=== PATIENT | female | born 1955 | race Caucasian/White ===

== ENCOUNTER 2016-12-10 17:25 | Emergency (ER) | payer MEDICARE, BC ==
[2016-12-10 17:33] VITALS: TEMP 97.5
[2016-12-10] MEDS ORDERED: methylPREDNISolone SOD SUCCI 125 MG/2 ML VIAL IV STA (17:44)
[2016-12-10] MEDS ORDERED: FAMOTIDINE 20 MG/2 ML VIAL IV STA (17:44)
--- NOTE | 2016-12-10 17:46 | ED ---
General Adult HPI - General Chief complaint: Allergic Reaction Stated complaint: bee sting Time Seen by Provider: 12/10/16 17:30 Source: EMS, RN notes reviewed Mode of arrival: EMS Limitations: no limitations - History of Present Illness Initial comments: This is a 61-year-old female who presents emergency department after she was bit twice on the left arm by a wasp. Patient states she started breaking out in a rash on her chest arms and legs and became very itchy. Patient states then she started to have a sensation that she wasn't breathing as well. EMS was contacted became irregular 50 of Benadryl patient refused epinephrine because she believes she is ALLERGIC to it. Patient states she has not had any ALLERGIC reactions to wasps in the past. Patient states currently she is not having any difficulty breathing or throat swelling or any difficulty swallowing. Patient states since the Benadryl she is feeling better. - Related Data Home Medications Medication Instructions Recorded Confirmed Atenolol [Tenormin] 12.5 mg PO DAILY 12/10/16 12/10/16 Benazepril/Hydrochlorothiazide 1 tab PO DAILY 12/10/16 12/10/16 [Benazepril-Hctz 20-12.5 mg Tab] Etanercept [Enbrel] 50 mg SQ WANG 12/10/16 12/10/16 Gemfibrozil [Lopid] 600 mg PO AC-BID 12/10/16 12/10/16 Ibuprofen [Motrin] 800 mg PO TID 12/10/16 12/10/16 Methotrexate 50mg/2ml 25 mg SQ WE 12/10/16 12/10/16 [place]-3 Fatty Acids/Fish Oil [Fish 1 cap PO DAILY 12/10/16 12/10/16 Oil 1,000 mg Softgel] Omeprazole 40 mg PO DAILY 12/10/16 12/10/16 amLODIPine [Norvasc] 5 mg PO DAILY 12/10/16 12/10/16 glipiZIDE [Glucotrol] 10 mg PO DAILY 12/10/16 12/10/16 glyBURIDE [Diabeta] 5 mg PO DAILY 12/10/16 12/10/16 metFORMIN HCL [Glucophage] 1,000 mg PO BID 12/10/16 12/10/16 oxyCODONE ER [OxyCONTIN 80MG E.R] 80 mg PO TID 12/10/16 12/10/16 Previous Rx's Medication Instructions Recorded EPINEPHrine (Auto Inject) [Epipen] 0.3 mg IM ONCE PRN #2 syringe 12/10/16 predniSONE 40 mg PO DAILY #8 tab 12/10/16 Allergies Allergy/AdvReac Type Severity Reaction Status Date / Time bee venom protein (honey bee) Allergy Rash/Hives Verified 12/10/16 18:12 Sulfa (Sulfonamide Allergy Unknown Verified 12/10/16 18:12 Antibiotics) Review of Systems ROS Statement: Those systems with pertinent positive or pertinent negative responses have been documented in the HPI. ROS Other: All systems not noted in ROS Statement are negative. Past Medical History Past Medical History: Diabetes Mellitus, Hypertension, Rheumatoid Arthritis (RA) History of Any Multi-Drug Resistant Organisms: None Reported Past Surgical History: Breast Surgery Past Psychological History: No Psychological Hx Reported Smoking Status: Former smoker Past Alcohol Use History: None Reported Past Drug Use History: None Reported General Exam - General Exam Comments Initial Comments: GENERAL: Patient is well-developed and well-nourished. Patient is nontoxic and well- hydrated and is in mild distress. ENT: Neck is soft and supple. No significant lymphadenopathy is noted. Oropharynx is clear. Moist mucous membranes. Neck has full range of motion without eliciting any pain. EYES: The sclera were anicteric and conjunctiva were pink and moist. Extraocular movements were intact and pupils were equal round and reactive to light. Eyelids were unremarkable. PULMONARY: Unlabored respirations. Good breath sounds bilaterally. No audible rales rhonchi or wheezing was noted. CARDIOVASCULAR: There is a regular rate and rhythm without any murmurs gallops or rubs. ABDOMEN: Soft and nontender with normal bowel sounds. SKIN: Patient has hives on both of her legs arms and chest. NEUROLOGIC: Patient is alert and oriented x3. Cranial nerves II through XII are grossly intact. Motor and sensory are also intact. Normal speech, volume and content. Symmetrical smile. MUSCULOSKELETAL: Normal extremities with adequate strength and full range of motion. No lower extremity swelling or edema. No calf tenderness. PSYCHIATRIC: Normal psychiatric evaluation. Normal interpersonal interactions appears functionally intact in deals appropriately with others. No signs of depression. No signs of anxiety. Limitations: no limitations Course Vital Signs 12/10/16 12/10/16 12/10/16 17:30 19:21 19:37 Temperature 97.5 F L Pulse Rate 115 H 88 110 H Respiratory 18 16 16 Rate Blood Pressure 124/63 100/56 105/70 O2 Sat by Pulse 100 100 100 Oximetry Medical Decision Making - Medical Decision Making I gave the patient Solu-Medrol as well as Pepcid short he had Benadryl in route to the hospital. Patient's rash was almost completely gone patient had no difficulty breathing or difficulty swallowing when I reevaluated her. - Lab Data Lab Results 12/10/16 Range/Units 18:55 POC Glucose (mg/dL) 265 H (75-99) mg/dL POC Glu Benefits Advisor ID Shanthi Jones Disposition Clinical Impression: Allergic reaction Disposition: HOME SELF-CARE Condition: Good Instructions: Anaphylaxis (ED) Prescriptions: EPINEPHrine (Auto Inject) [Epipen] 0.3 mg IM ONCE PRN #2 syringe PRN Reason: Difficulty breathing predniSONE 40 mg PO DAILY #8 tab Referrals: Farideh Kamara MD [Primary Care Provider] - 1-2 days Time of Disposition: 19:44
[2016-12-10 18:56] LABS: Glucose,Whole Blood 265 mg/dL (75-99)
[2016-12-10 20:09] VITALS: BP 121/58; PULSE 109; RESP 17
== END 2016-12-10 20:10 | disposition home or self-care (01) ==
LOC: EC 17:25
DX: T63.461A Toxic effect of venom of wasps, accidental (unintentional), initial encounter (principal); X58.XXXA Exposure to other specified factors, initial encounter; I10 Essential (primary) hypertension; E11.9 Type 2 diabetes mellitus without complications; M06.9 Rheumatoid arthritis, unspecified; Z79.84 Long term (current) use of oral hypoglycemic drugs; Z79.899 Other long term (current) drug therapy; Z87.891 Personal history of nicotine dependence; Z88.2 Allergy status to sulfonamides; Z91.030 Bee allergy status
CPT/HCPCS: 36415; 99284; 96374; 96375; J2930

== ENCOUNTER 2017-09-28 14:47 | Inpatient (IN) | payer MEDICARE, BC ==
[2017-09-28] MEDS ORDERED: ACETAMINOPHEN IV (For NPO) 1,000 MG in EMPTY BAG 1 BAG IVPB STA (15:05)
[2017-09-28] MEDS ORDERED: ONDANSETRON 4 MG/2 ML VIAL IVP STA (15:05)
[2017-09-28] MEDS ORDERED: SODIUM CHLORIDE 0.9% 1,000 ML IV STA ×2 (15:05)
--- NOTE | 2017-09-28 15:07 | ED ---
General Adult HPI - General Chief complaint: Abdominal Pain Stated complaint: Abd Pain Time Seen by Provider: 09/28/17 14:59 Source: patient, EMS, RN notes reviewed Mode of arrival: EMS Limitations: no limitations - History of Present Illness Initial comments: Capacious 62-year-old female presenting to the emergency room today by EMS, the chief complaint of possible UTI. Patient does admit that she noticed some dysuria approximately 4 days ago. She states she did follow family doctor was prescribed antibiotic of Bactrim. She states she did not begin taking it. She states feel well. Has had some increased symptoms of nausea vomiting over the last 2 days unable to keep down food. Patient admits to abdominal pain left lower quadrant. Patient doesn't to chills. He was feeling feverish. Patient denies any recent shortness of breath, chest pain, back pain, numbness or tingling, dysuria or hematuria, constipation or diarrhea, headaches or visual changes, or any other complaints. - Related Data Home Medications Medication Instructions Recorded Confirmed Atenolol [Tenormin] 12.5 mg PO DAILY 12/10/16 12/10/16 Benazepril/Hydrochlorothiazide 1 tab PO DAILY 12/10/16 12/10/16 [Benazepril-Hctz 20-12.5 mg Tab] Etanercept [Enbrel] 50 mg SQ WANG 12/10/16 12/10/16 Gemfibrozil [Lopid] 600 mg PO AC-BID 12/10/16 12/10/16 Ibuprofen [Motrin] 800 mg PO TID 12/10/16 12/10/16 Methotrexate 50mg/2ml 25 mg SQ WE 12/10/16 12/10/16 [place]-3 Fatty Acids/Fish Oil [Fish 1 cap PO DAILY 12/10/16 12/10/16 Oil 1,000 mg Softgel] Omeprazole 40 mg PO DAILY 12/10/16 12/10/16 amLODIPine [Norvasc] 5 mg PO DAILY 12/10/16 12/10/16 glipiZIDE [Glucotrol] 10 mg PO DAILY 12/10/16 12/10/16 glyBURIDE [Diabeta] 5 mg PO DAILY 12/10/16 12/10/16 metFORMIN HCL [Glucophage] 1,000 mg PO BID 08/29/17 08/29/17 oxyCODONE ER [OxyCONTIN 80MG E.R] 80 mg PO TID 12/10/16 12/10/16 Previous Rx's Medication Instructions Recorded EPINEPHrine (Auto Inject) [Epipen] 0.3 mg IM ONCE PRN #2 syringe 12/10/16 predniSONE 40 mg PO DAILY #8 tab 12/10/16 Allergies Allergy/AdvReac Type Severity Reaction Status Date / Time bee venom protein (honey bee) Allergy Rash/Hives Verified 12/10/16 18:12 Sulfa (Sulfonamide Allergy Unknown Verified 12/10/16 18:12 Antibiotics) Review of Systems ROS Statement: Those systems with pertinent positive or pertinent negative responses have been documented in the HPI. ROS Other: All systems not noted in ROS Statement are negative. Past Medical History Past Medical History: Diabetes Mellitus, Hypertension, Rheumatoid Arthritis (RA) History of Any Multi-Drug Resistant Organisms: None Reported Past Surgical History: Breast Surgery Past Psychological History: No Psychological Hx Reported Smoking Status: Former smoker Past Alcohol Use History: None Reported Past Drug Use History: None Reported General Exam - General Exam Comments Initial Comments: General: The patient is awake and alert. Eye: Pupils are equal, round and reactive to light, extra-ocular movements are intact. No nystagmus. There is normal conjunctiva bilaterally. No signs of icterus. Ears, nose, mouth and throat: There are moist mucous membranes and no oral lesions. Neck: The neck is supple, there is no tenderness or JVD. Cardiovascular: There is a regular rate and rhythm. No murmur, rub or gallop is appreciated. Respiratory: Lungs are clear to auscultation, respirations are non-labored, breath sounds are equal. No wheezes, stridor, rales, or rhonchi. Gastrointestinal: Abdomen soft on palpation. Patient does have tenderness both right and left lower quadrant. No rebound tenderness. No guarding. No CVA tenderness. Musculoskeletal: Normal ROM, no tenderness. Strength 5/5. Sensation intact. Pulses equal bilaterally 2+. Neurological: A&O x 3. CN II-XII intact, There are no obvious motor or sensory deficits. Coordination appears grossly intact. Speech is normal. Skin: Skin is warm and dry and no rashes or lesions are noted. Psychiatric: Cooperative, appropriate mood & affect, normal judgment. Limitations: no limitations Course Vital Signs 09/28/17 09/28/17 09/28/17 14:54 15:50 16:34 Temperature 102.9 F H 98.2 F Pulse Rate 121 H 108 H 97 Respiratory 20 22 18 Rate Blood Pressure 137/62 124/58 114/57 O2 Sat by Pulse 92 L 93 L 95 Oximetry EKG Findings - EKG Comments: EKG Findings:: EKG performed at 1545: Shows a sinus tachycardia 110 bpm. SC interval 160. QRS 84. QT/QTC 334/442. No acute ST changes. Medical Decision Making - Medical Decision Making Patient's labs been reviewed and does show 24,000 white count with a left shift. Patient's urinalysis does show evidence for infection. CT the abdomen and pelvis does reveal a 6 mm stone on the left UVJ with some perinephric stranding edema. Patient given 2 g Rocephin here in the emergency room. Patient did have temperature 102.9F at triage. Vitals aren't improving patient was given IV Tylenol and liter bolus. Lactic acid negative. Patient will be admitted with consult to urology. - Lab Data Result diagrams: 09/28/17 15:19 09/28/17 15:19 Lab Results 09/28/17 09/28/17 09/28/17 Range/Units 15:19 15:19 15:19 WBC 24.3 H (3.8-10.6) k/uL RBC 3.67 L (3.80-5.40) m/uL Hgb 10.8 L (11.4-16.0) gm/dL Hct 32.1 L (34.0-46.0) % MCV 87.3 (80.0-100.0) fL MCH 29.5 (25.0-35.0) pg MCHC 33.7 (31.0-37.0) g/dL RDW 15.3 (11.5-15.5) % Plt Count 345 (150-450) k/uL Neutrophils % 93 % Lymphocytes % 2 % Monocytes % 4 % Eosinophils % 0 % Basophils % 0 % Neutrophils # 22.6 H (1.3-7.7) k/uL Lymphocytes # 0.6 L (1.0-4.8) k/uL Monocytes # 0.9 (0-1.0) k/uL Eosinophils # 0.1 (0-0.7) k/uL Basophils # 0.0 (0-0.2) k/uL PT (9.0-12.0) sec INR (<1.2) APTT (22.0-30.0) sec Sodium 132 L (137-145) mmol/L Potassium 4.1 (3.5-5.1) mmol/L Chloride 99 (98-107) mmol/L Carbon Dioxide 18 L (22-30) mmol/L Anion Gap 15 mmol/L BUN 22 H (7-17) mg/dL Creatinine 0.80 (0.52-1.04) mg/dL Est GFR (CKD-EPI)AfAm >90 (>60 ml/min/1.73 sqM) Est GFR (CKD-EPI)NonAf 80 (>60 ml/min/1.73 sqM) Glucose 332 H (74-99) mg/dL Plasma Lactic Acid Varg[place] 1.2 (0.7-2.0) mmol/L Calcium 8.8 (8.4-10.2) mg/dL Total Bilirubin 0.6 (0.2-1.3) mg/dL AST 22 (14-36) U/L ALT 32 (9-52) U/L Alkaline Phosphatase 73 (38-126) U/L Total Protein 6.1 L (6.3-8.2) g/dL Albumin 3.5 (3.5-5.0) g/dL Urine Color Urine Appearance (Clear) Urine pH (5.0-8.0) Ur Specific [place] (1.001-1.035) Urine Protein (Negative) Urine Glucose (UA) (Negative) Urine Ketones (Negative) Urine Blood (Negative) Urine Nitrite (Negative) Urine Bilirubin (Negative) Urine Urobilinogen (<2.0) mg/dL Ur Leukocyte Esterase (Negative) Urine RBC (0-5) /hpf Urine WBC (0-5) /hpf Urine WBC Clumps (None) /hpf Urine Bacteria (None) /hpf Granular Casts (0) /lpf Urine Mucus (None) /hpf 18 09/28/17 Range/Units 15:19 15:38 WBC (3.8-10.6) k/uL RBC (3.80-5.40) m/uL Hgb (11.4-16.0) gm/dL Hct (34.0-46.0) % MCV (80.0-100.0) fL MCH (25.0-35.0) pg MCHC (31.0-37.0) g/dL RDW (11.5-15.5) % Plt Count (150-450) k/uL Neutrophils % % Lymphocytes % % Monocytes % % Eosinophils % % Basophils % % Neutrophils # (1.3-7.7) k/uL Lymphocytes # (1.0-4.8) k/uL Monocytes # (0-1.0) k/uL Eosinophils # (0-0.7) k/uL Basophils # (0-0.2) k/uL PT 12.8 H (9.0-12.0) sec INR 1.4 H (<1.2) APTT 23.0 (22.0-30.0) sec Sodium (137-145) mmol/L Potassium (3.5-5.1) mmol/L Chloride (98-107) mmol/L Carbon Dioxide (22-30) mmol/L Anion Gap mmol/L BUN (7-17) mg/dL Creatinine (0.52-1.04) mg/dL Est GFR (CKD-EPI)AfAm (>60 ml/min/1.73 sqM) Est GFR (CKD-EPI)NonAf (>60 ml/min/1.73 sqM) Glucose (74-99) mg/dL Plasma Lactic Acid [place] (0.7-2.0) mmol/L Calcium (8.4-10.2) mg/dL Total Bilirubin (0.2-1.3) mg/dL AST (14-36) U/L ALT (9-52) U/L Alkaline Phosphatase (38-126) U/L Total Protein (6.3-8.2) g/dL Albumin (3.5-5.0) g/dL Urine Color Yellow Urine Appearance Cloudy H (Clear) Urine pH 6.0 (5.0-8.0) Ur Specific [place] 1.019 (1.001-1.035) Urine Protein 2+ H (Negative) Urine Glucose (UA) 4+ H (Negative) Urine Ketones 2+ H (Negative) Urine Blood Moderate H (Negative) Urine Nitrite Negative (Negative) Urine Bilirubin Negative (Negative) Urine Urobilinogen <2.0 (<2.0) mg/dL Ur Leukocyte Esterase Trace H (Negative) Urine RBC 21 H (0-5) /hpf Urine WBC 31 H (0-5) /hpf Urine WBC Clumps Few H (None) /hpf Urine Bacteria Many H (None) /hpf Granular Casts 3 (0) /lpf Urine Mucus Rare H (None) /hpf Disposition Clinical Impression: Kidney stone, UTI (urinary tract infection), Fever, Leukocytosis, Hydronephrosis Disposition: ADMITTED IP TO THIS HOSP Condition: Stable Is patient prescribed a controlled substance at d/c from ED?: No Referrals: Farideh Kamara MD [Primary Care Provider] - 1-2 days Time of Disposition: 16:43
[2017-09-28 15:32] LABS: Basophils % (A) 0 %; Eosinophils # (A) 0.1 k/uL (0-0.7); Eosinophils % (A) 0 %; HCT 32.1 % (34.0-46.0); HGB 10.8 gm/dL (11.4-16.0); Lymphocytes # (A) 0.6 k/uL (1.0-4.8); Lymphocytes % (A) 2 %; MCH 29.5 pg (25.0-35.0); MCHC 33.7 g/dL (31.0-37.0); MCV 87.3 fL (80.0-100.0); Mean Platelet Volume 6.8; Monocytes # (A) 0.9 k/uL (0-1.0); Monocytes % (A) 4 %; Neutrophils # (A) 22.6 k/uL (1.3-7.7); Neutrophils % (A) 93 %; Platelet Count 345 k/uL (150-450); RBC 3.67 m/uL (3.80-5.40); RDW 15.3 % (11.5-15.5); WBC 24.3 k/uL (3.8-10.6)
[2017-09-28 15:41] LABS: ALT 32 U/L (9-52); AST 22 U/L (14-36); Albumin 3.5 g/dL (3.5-5.0); Alkaline Phosphatase 73 U/L (38-126); Anion Gap 15 mmol/L; Blood Urea Nitrogen 22 mg/dL (7-17); Calcium 8.8 mg/dL (8.4-10.2); Carbon Dioxide 18 mmol/L (22-30); Chloride 99 mmol/L (98-107); Glucose 332 mg/dL (74-99); Potassium 4.1 mmol/L (3.5-5.1); Sodium 132 mmol/L (137-145); Total Bilirubin 0.6 mg/dL (0.2-1.3); Total Protein 6.1 g/dL (6.3-8.2)
[2017-09-28 15:53] LABS: INR 1.4 (<1.2); Prothrombin Time 12.8 sec (9.0-12.0)
[2017-09-28] MEDS ORDERED: MORPHINE SULFATE 2 MG/ML SYRINGE IVP STA (15:53)
[2017-09-28 16:04] LABS: Appearance,Urine Cloudy (Clear); Bacteria,Urine Many /hpf; Bilirubin,Urine Negative (Negative); Blood,Urine Moderate (Negative); Color,Urine Yellow; Glucose,Urine (UA) 4+ (Negative); Granular Casts,Urine 3 /lpf (0); Leukocyte Esterase,Urine Trace (Negative); Mucus,Urine Rare /hpf; Nitrite,Urine Negative (Negative); Protein,Urine 2+ (Negative); RBC,Urine 21 /hpf (0-5); Specific Gravity,Urine 1.019 (1.001-1.035); Urobilinogen,Urine <2.0 mg/dL (<2.0); WBC,Urine 31 /hpf (0-5)
[2017-09-28 16:17] LABS: Ketones,Urine 2+ (Negative)
--- NOTE | 2017-09-28 16:25 | CT ---
EXAMINATION TYPE: CT abdomen pelvis w con DATE OF EXAM: 09/28/2017 COMPARISON: NONE HISTORY: Left sided abdominal pain with nausea, vomiting and fever. CT DLP: 1429.1 mGycm Automated exposure control for dose reduction was used. TECHNIQUE: Helical acquisition of images was performed from the lung bases through the pelvis. CONTRAST: Performed without Oral Contrast and with IV Contrast, patient injected with 100 mL of Isovue 300. FINDINGS: There is some mild reticular infiltrate in the right paraspinal right lower lobe. There is no pleural effusion. Heart size is normal. There is no pericardial effusion. Liver and spleen appear normal. Gallbladder appears normal. Bile ducts are not dilated. There is moon nephric fat stranding on the left side. Pancreas appears normal. There is left-sided hydronephrosis a nd hydroureter. There is a 6 mm calculus at the left ureterovesical junction. Right kidney shows normal size and contour. There is a 5 mm calculus in the interpolar right kidney. There is no retroperitoneal adenopathy. There is no ascites. There are sigmoid diverticula without diverticulitis. Bladder distends smoothly. There is no pelvic mass. Uterus is anteverted. There are spondylotic changes in the lumbar spine. Th ere is mild spinal stenosis at L3-4 due to facet arthropathy.: Appendix appears normal. IMPRESSION: THERE IS MILD SUBSEGMENTAL ATELECTASIS OR SCARRING IN THE RIGHT PARASPINAL RIGHT LOWER LOBE. OBSTRUCTION OF THE LEFT UPPER COLLECTING SYSTEM AT THE LEFT URETEROVESICAL JUNCTION WITH CALCULUS. MO DERATELY SEVERE PERINEPHRIC EDEMA.
[2017-09-28] MEDS ORDERED: cefTRIAXone 2,000 MG in SODIUM CHLORIDE 0.9% 100 ML IVPB STA (16:39)
[2017-09-28] MEDS ORDERED: INSULIN REGULAR 100 UNIT/ML VIAL SQ STA ×2 (16:39→16:40)
--- NOTE | 2017-09-28 16:40 | XR ---
EXAMINATION TYPE: XR chest 2V DATE OF EXAM: 09/28/2017 COMPARISON: NONE HISTORY: Fever TECHNIQUE: Frontal and lateral views of the chest are obtained. FINDINGS: Heart and mediastinum are normal. Lungs are clear. Diaphragm is normal. Bony thorax appear s normal. IMPRESSION: Normal chest
[2017-09-28] MEDS ORDERED: cefTRIAXone IN SWFI 2,000 MG/20 ML SYRINGE IVP STA (16:41)
[2017-09-28] MEDS ORDERED: SODIUM CHLORIDE 0.9% 1,000 ML IV ONE (16:44)
[2017-09-28] MEDS ORDERED: MORPHINE SULFATE 2 MG/ML SYRINGE IV PRN (16:44)
[2017-09-28] MEDS ORDERED: IBUPROFEN 400 MG TAB PO PRN (16:44)
[2017-09-28] MEDS ORDERED: NALOXONE 0.4 MG/ML 1 ML VIAL IV PRN (16:44)
[2017-09-28] MEDS ORDERED: KETOROLAC 30 MG/ML 1 ML VIAL IVP STA (17:20)
[2017-09-28 17:34] LABS: Glucose,Whole Blood 316 mg/dL (75-99)
[2017-09-28 18:24] VITALS: BMI 33.2
[2017-09-28 20:16] LABS: Glucose,Whole Blood 348 mg/dL (75-99)
--- NOTE | 2017-09-28 20:26 | P.GSCN ---
History of Present Illness Consult date: 09/28/17 Reason for Consult: Left hydronephrosis and urinary tract infection with fever History of present illness: The patient is a 62-year-old female with a history of intermittent left flank and left hip pain which has been present for approximately 10 days. The patient says that at times the pain has been as bad as an 8-10/10. Over the last 2-3 days the patient has noted increased urinary frequency, a fever amd dark colorted urine. She was seen by Dr. Peters on 09/25 and was given a prescription for Macrobid due to a urinary tract infection but the patient says that she never started it because her appetite was so poor. She came to the emergency room this afternoon due to pain and a fever and at the time of admission was noted to have a temperature of 102 9 and a heart rate of 121. her white blood count was 24,300. Sodium was 132, bicarb was 18, random glucose was 332 and BUN/creatinine were 22/0.80. A urinalysis showed 21 red cells 31 white cells and many bacteria. Computed tomography scan of the abdomen and pelvis identified a 4 x 8 x 6 mm calculus in the distal left ureter with moderate left hydroureteronephrosis. There was evidence of perinephric stranding. The patient was started on Rocephin and was given IV fluids and says that she feels better than she did this morning. Although she was brought at the time of admission she is currently afebrile. The patient does not have a history of recurrent urinary tract infections. She does have a history of urolithiasis and says she spontaneously passed a stone in 2007. She has rheumatoid arthritis which has been treated with methotrexate and diabetes mellitus which has not been under good control recently. She said her glucose this morning was 370. She says a portion of this is because she has not been taking her diabetic medications because her appetite has been poor. She also says that she is constipated and has not had a bowel movement in 2 or 3 days although a portion of this could be related to her reduced appetite Review of Systems - Constitutional Reports chills, Reports fever, Reports lethargy, Reports poor appetite - Cardiovascular Reports shortness of breath, Denies chest pain - Respiratory Reports cough - Gastrointestinal Reports as per HPI - Genitourinary Genitourinary: Reports as per HPI Past Medical History Past Medical History: Diabetes Mellitus, Hypertension, Rheumatoid Arthritis (RA) History of Any Multi-Drug Resistant Organisms: None Reported Past Surgical History: Breast Surgery Additional Past Surgical History / Comment(s): diagnostic laparoscopy Past Anesthesia/Blood Transfusion Reactions: No Reported Reaction Smoking Status: Former smoker Medications and Allergies Home Medications Medication Instructions Recorded Confirmed Type Atenolol [Tenormin] 12.5 mg PO DAILY 12/10/16 09/28/17 History Benazepril/Hydrochlorothiazide 1 tab PO DAILY 12/10/16 09/28/17 History [Benazepril-Hctz 20-12.5 mg Tab] EPINEPHrine (Auto Inject) [Epipen] 0.3 mg IM ONCE PRN #2 syringe 12/10/16 Rx Gemfibrozil [Lopid] 600 mg PO AC-BID 12/10/16 09/28/17 History Ibuprofen [Motrin] 800 mg PO TID PRN 12/10/16 09/28/17 History Methotrexate 50mg/2ml 25 mg SQ WANG 12/10/16 09/28/17 History [place]-3 Fatty Acids/Fish Oil [Fish 1 cap PO DAILY 12/10/16 09/28/17 History Oil 1,000 mg Softgel] amLODIPine [Norvasc] 5 mg PO DAILY 12/10/16 09/28/17 History metFORMIN HCL [Glucophage] 1,000 mg PO BID 12/10/16 09/28/17 History Cholecalciferol (Vitamin D3) 2,000 unit PO DAILY 09/28/17 09/28/17 History [Vitamin D3] HYDROcodone/APAP 10-325MG [[place] 0.5 tab PO Q8HR PRN 09/28/17 09/28/17 History 10-325] Insulin Glargine,Hum.rec.anlog 40 unit SQ HS 09/28/17 09/28/17 History [Lantus Solostar] Insulin Lispro [humaLOG Kwikpen] 5 unit SQ AC-TID 09/28/17 09/28/17 History Allergies Allergy/AdvReac Type Severity Reaction Status Date / Time bee venom protein (honey bee) Allergy Rash/Hives Verified 09/28/17 17:26 Sulfa (Sulfonamide Allergy Unknown Verified 09/28/17 17:26 Antibiotics) Surgical - Exam Vital Signs Temp Pulse Resp BP Pulse Ox 102.9 F H 121 H 20 137/62 92 L 09/28/17 14:54 09/28/17 14:54 09/28/17 14:54 09/28/17 14:54 09/28/17 14:54 - General well developed, well nourished, chronically ill - Neck no masses, trachea midline, no lymphadectomy - Respiratory normal expansion, normal respiratory effort, clear to percussion - Cardiovascular Rhythm: regular Abnormal Heart Sounds: no systolic murmur, no diastolic murmur - Abdomen Abdomen: soft, tender (left flank), no organomegaly Results - Labs 09/28/17 15:19 09/28/17 15:19 Abnormal Lab Results - Last 24 Hours (Table) 09/28/17 09/28/17 09/28/17 Range/Units 15:19 15:19 15:19 WBC 24.3 H (3.8-10.6) k/uL RBC 3.67 L (3.80-5.40) m/uL Hgb 10.8 L (11.4-16.0) gm/dL Hct 32.1 L (34.0-46.0) % Neutrophils # 22.6 H (1.3-7.7) k/uL Lymphocytes # 0.6 L (1.0-4.8) k/uL PT 12.8 H (9.0-12.0) sec INR 1.4 H (<1.2) Sodium 132 L (137-145) mmol/L Carbon Dioxide 18 L (22-30) mmol/L BUN 22 H (7-17) mg/dL Glucose 332 H (74-99) mg/dL POC Glucose (mg/dL) (75-99) mg/dL Total Protein 6.1 L (6.3-8.2) g/dL Urine Appearance (Clear) Urine Protein (Negative) Urine Glucose (UA) (Negative) Urine Ketones (Negative) Urine Blood (Negative) Ur Leukocyte Esterase (Negative) Urine RBC (0-5) /hpf Urine WBC (0-5) /hpf Urine WBC Clumps (None) /hpf Urine Bacteria (None) /hpf Urine Mucus (None) /hpf 09/28/17 09/28/17 Range/Units 15:38 17:29 WBC (3.8-10.6) k/uL RBC (3.80-5.40) m/uL Hgb (11.4-16.0) gm/dL Hct (34.0-46.0) % Neutrophils # (1.3-7.7) k/uL Lymphocytes # (1.0-4.8) k/uL PT (9.0-12.0) sec INR (<1.2) Sodium (137-145) mmol/L Carbon Dioxide (22-30) mmol/L BUN (7-17) mg/dL Glucose (74-99) mg/dL POC Glucose (mg/dL) 316 H (75-99) mg/dL Total Protein (6.3-8.2) g/dL Urine Appearance Cloudy H (Clear) Urine Protein 2+ H (Negative) Urine Glucose (UA) 4+ H (Negative) Urine Ketones 2+ H (Negative) Urine Blood Moderate H (Negative) Ur Leukocyte Esterase Trace H (Negative) Urine RBC 21 H (0-5) /hpf Urine WBC 31 H (0-5) /hpf Urine WBC Clumps Few H (None) /hpf Urine Bacteria Many H (None) /hpf Urine Mucus Rare H (None) /hpf Diabetes panel 09/28/17 Range/Units 15:19 Sodium 132 L (137-145) mmol/L Potassium 4.1 (3.5-5.1) mmol/L Chloride 99 (98-107) mmol/L Carbon Dioxide 18 L (22-30) mmol/L BUN 22 H (7-17) mg/dL Creatinine 0.80 (0.52-1.04) mg/dL Glucose 332 H (74-99) mg/dL Calcium 8.8 (8.4-10.2) mg/dL AST 22 (14-36) U/L ALT 32 (9-52) U/L Alkaline Phosphatase 73 (38-126) U/L Total Protein 6.1 L (6.3-8.2) g/dL Albumin 3.5 (3.5-5.0) g/dL Calcium panel 09/28/17 Range/Units 15:19 Calcium 8.8 (8.4-10.2) mg/dL Albumin 3.5 (3.5-5.0) g/dL Pituitary panel 09/28/17 Range/Units 15:19 Sodium 132 L (137-145) mmol/L Potassium 4.1 (3.5-5.1) mmol/L Chloride 99 (98-107) mmol/L Carbon Dioxide 18 L (22-30) mmol/L BUN 22 H (7-17) mg/dL Creatinine 0.80 (0.52-1.04) mg/dL Glucose 332 H (74-99) mg/dL Calcium 8.8 (8.4-10.2) mg/dL Adrenal panel 09/28/17 Range/Units 15:19 Sodium 132 L (137-145) mmol/L Potassium 4.1 (3.5-5.1) mmol/L Chloride 99 (98-107) mmol/L Carbon Dioxide 18 L (22-30) mmol/L BUN 22 H (7-17) mg/dL Creatinine 0.80 (0.52-1.04) mg/dL Glucose 332 H (74-99) mg/dL Calcium 8.8 (8.4-10.2) mg/dL Total Bilirubin 0.6 (0.2-1.3) mg/dL AST 22 (14-36) U/L ALT 32 (9-52) U/L Alkaline Phosphatase 73 (38-126) U/L Total Protein 6.1 L (6.3-8.2) g/dL Albumin 3.5 (3.5-5.0) g/dL - Imaging CT scan - abdomen: image reviewed (The patient has a 4 x 6 x 8 mm oblong calculus at the left ureteral vesicle junction and there may also be a smaller calculus just proximal to it. There is moderate hydroureteronephrosis on the left with perinephric stranding.) Assessment and Plan (1) Sepsis secondary to UTI Narrative/Plan: the patient has a high fever, leukocytosis, metabolic acidosis and tachycardia which is most likely related to acute left pyelonephritis. The infection is complicated by an obstructive calculus at the left ureterovesicle junction. The patient is immune compromised due to her diabetes and treatment of her rheumatoid arthritis with methotrexate. I told her I believe that placement of a left double-J catheter should be performed urgently due to the possibility of sepsis related to gram-negative bacteremia. This will allow decompression of the left collecting system and better antibiotic penetration into the kidney. The patient is in agreement with this and the procedure will be done under spinal anesthesia as she had eaten some soup this evening. Current Visit: Yes Status: Acute Code(s): A41.9 - SEPSIS, UNSPECIFIED ORGANISM; N39.0 - URINARY TRACT INFECTION, SITE NOT SPECIFIED SNOMED Code(s): 318535232
[2017-09-28] MEDS: INSULIN ASPART 100 UNIT/ML 1 ML 10 ML VIAL SQ SCH (21:07)
[2017-09-28] MEDS: ONDANSETRON 4 MG/2 ML VIAL IVP PRN (21:07)
[2017-09-28] MEDS ORDERED: PROPOFOL 10 MG/ML 20 ML VIAL IV ONE (21:35)
[2017-09-28] MEDS ORDERED: ONDANSETRON 4 MG/2 ML VIAL ONE (21:35)
[2017-09-28] MEDS ORDERED: MIDAZOLAM 2 MG/2 ML VIAL ONE (21:35)
[2017-09-28] MEDS ORDERED: SUCCINYLCHOLINE CHLORIDE 100 MG/5 ML SYR IV ONE (21:35)
[2017-09-28] MEDS ORDERED: LIDOCAINE 1% INJ 10MG/ML (20 ML MDV) ONE (21:35)
[2017-09-28] MEDS ORDERED: fentaNYL (PF) 50 MCG/ML 2 ML AMP ONE (21:35)
[2017-09-28] MEDS ORDERED: IV FLUID CONTINUATION 500 ML IV ONE (21:56)
[2017-09-28] MEDS ORDERED: LACTATED RINGERS 1,000 ML IV ONE (22:10)
--- NOTE | 2017-09-28 22:17 | P.OP ---
Date of Procedure: 09/28/17 Preoperative Diagnosis: Left hydronephrosis secondary to distal ureteral calculus Postoperative Diagnosis: Left hydronephrosis secondary to distal ureteral calculus Procedure(s) Performed: Cystoscopy and placement of a left double-J catheter Anesthesia: SÁNCHEZ Surgeon: Spencer Walker Estimated Blood Loss (ml): 0 Pathology: none sent Condition: stable Disposition: PACU Indications for Procedure: Patient is a 62-year-old female with a 10 day history of left flank pain who has been febrile for the last 2 or 3 days. She was admitted earlier today with a white blood count of 24,000 and a bicarb of 18. Urinalysis suggests an acute urinary tract infection or pyelonephritis. Computed tomography scan identified an obstructive calculus in the distal left ureter with secondary hydroureteronephrosis. The patient is immunocompromised due to diabetes and the use of methotrexate for treatment of rheumatoid arthritis. Cystoscopy with placement of a double-J catheter is planned to ensure adequate drainage of the left kidney and allow better antibiotic penetration. Description of Procedure: The patient was taken the operating suite where adequate general anesthesia via orotracheal intubation was instituted. The patient was placed in the dorsal lithotomy position with her legs suspended from padded Lauro stirrups. The genitalia was prepped with Betadine soap and draped in a sterile fashion. The 17-[place] cystoscope sheath was passed through the urethra and into the bladder. Both ureteral orifice ease were normal location. There appeared to be edema and erythema surrounding the left ureteral orifice. A 0.035 straight Glidewire was advanced through the left ureteral orifice and up to the region of the kidney. A 6-[place] by 24 cm double-J catheter was then advanced over the Glidewire and positioned using fluoroscopy so that the proximal end coiled in the region of the renal pelvis and the distal end coiled in the bladder. The bladder was drained and the cystoscope was withdrawn. Patient tolerated procedure well and left the operative room awake and in satisfactory condition. There was no blood loss. The patient will be treated with antibiotics and elective treatment of the distal ureteral calculus will be performed in 2-3 weeks.
[2017-09-28 22:51] LABS: Glucose,Whole Blood 328 mg/dL (75-99)
[2017-09-28] MEDS ORDERED: INSULIN REGULAR 100 UNIT/ML VIAL SQ ONE (22:51)
[2017-09-28] MEDS: LEVOFLOXACIN 500MG-D5W PMX 500 MG in DEXTROSE/WATER 1 100ML.BAG IVPB SCH (23:20)
[2017-09-28] MEDS: ACETAMINOPHEN TAB 325 MG TAB PO PRN (23:22)
[2017-09-28] MEDS: HYDROcodone/APAP 5-325MG 1 EACH TAB PO PRN (23:34)
[2017-09-29] MEDS: ONDANSETRON 4 MG/2 ML VIAL IVP PRN ×2 (04:10→13:15)
[2017-09-29] MEDS: HYDROcodone/APAP 5-325MG 1 EACH TAB PO PRN (04:11)
[2017-09-29 06:57] LABS: Glucose,Whole Blood 309 mg/dL (75-99)
[2017-09-29] MEDS ORDERED: GEMFIBROZIL 600 MG TAB PO SCH (07:30)
[2017-09-29] MEDS ORDERED: metFORMIN 500 MG TAB PO SCH (07:30)
[2017-09-29 07:43] LABS: Anisocytosis Slight; Basophils % (A) 0 %; Eosinophils % (A) 0 %; HCT 30.6 % (34.0-46.0); HGB 10.1 gm/dL (11.4-16.0); Lymphocytes # (A) 0.4 k/uL (1.0-4.8); Lymphocytes % (A) 2 %; Mean Platelet Volume 6.7; Monocytes # (A) 1.1 k/uL (0-1.0); Monocytes % (A) 5 %; Neutrophils % (A) 91 %; Platelet Count 326 k/uL (150-450); RBC 3.36 m/uL (3.80-5.40); RDW 16.5 % (11.5-15.5); WBC 20.8 k/uL (3.8-10.6)
--- NOTE | 2017-09-29 07:47 | FL ---
EXAMINATION TYPE: FL guidance operating room DATE OF EXAM: 09/28/2017 CLINICAL HISTORY: Obstructing left ureter calculus TECHNIQUE: Fluoroscopy. COMPARISON: Same day CT abdomen and pelvis study. FINDINGS: Fluoroscopic guidance was provided during left ureter stent insertion procedure performed by Dr. Walker. A total of 2 seconds of fluoroscopic time was utilized during the procedure and 2 spot fluoroscopic images are acquired. Images acquired show placement of guidewire and subsequent ureter stent into collecting system of left kidney. IMPRESSION: As Above.
[2017-09-29] MEDS: INSULIN ASPART 100 UNIT/ML 1 ML 10 ML VIAL SQ SCH ×6 (07:59→20:55)
[2017-09-29 08:01] LABS: Potassium 4.1 mmol/L (3.5-5.1); Total Bilirubin 0.3 mg/dL (0.2-1.3); Total Protein 5.5 g/dL (6.3-8.2)
[2017-09-29] MEDS ORDERED: LISINOPRIL 20 MG TAB PO SCH (09:00)
[2017-09-29] MEDS ORDERED: HYDROCHLOROTHIAZIDE 12.5 MG CAP PO SCH (09:00)
[2017-09-29] MEDS ORDERED: amLODIPine 5 MG TAB PO SCH (09:00)
[2017-09-29] MEDS: PANTOPRAZOLE 40 MG/10 ML VIAL IVP SCH (09:42)
[2017-09-29] MEDS: SODIUM CHLORIDE 0.9% 1,000 ML IV SCH ×2 (09:43→20:54)
[2017-09-29] MEDS: ACETAMINOPHEN TAB 325 MG TAB PO PRN (09:49)
[2017-09-29] MEDS: ATENOLOL 12.5 MG TAB PO SCH ×3 (09:51→20:55)
[2017-09-29] MEDS: CHOLECALCIFEROL 1,000 UNIT TAB PO SCH (09:51)
--- NOTE | 2017-09-29 10:59 | P.HPIM ---
History of Present Illness H&P Date: 09/29/17 Chief Complaint: Abdominal pain with dysuria This is a 62-year-old female, patient of Dr. Peters. She has a known past medical history of kidney stones, diabetes mellitus, hypertension and rheumatoid arthritis. Patient presents to the emergency room with complaints of a possible UTI. She noticed some left lower quadrant and left upper back pain and had some burning with urination about 4 days ago. Initially her PCP had prescribed Bactrim outpatient. However, patient did not start taking it. She had increased symptoms of nausea and vomiting and was having chills and sweats. Patient felt feverish. She presented to the emergency room for further evaluation and treatment. She was found to have a temp of 102.9, tachycardic and a white count of 24.3. She was started on IV Rocephin and Levaquin. She had a computed tomography scan of the abdomen completed showing obstruction of the left upper collecting system at the left ureterovesical junction with calculus. Moderately severe perinephric edema. Urology has been consulted. Patient has undergone cystoscopy with placement of a left double-J catheter for her left hydronephrosis secondary to distal ureteral calculus. Patient reports improvement in her pain. She still having nausea. No evidence of stone. Her creatinine has climbed to 1.1 to the Motrin hydrochlorothiazide and metformin have been discontinued. She also received Toradol yesterday that has been discontinued. She is complaining of constipation reports her last bowel movement was about a week ago. Denies any chest pain or shortness of breath. The burning with urination has improved. White count is down to 20.8. Hemoglobin has also dropped from 10.8-10.1. Patient denies any hematuria. Iron studies have been ordered. Review of Systems Please refer to HPI otherwise unremarkable Past Medical History Past Medical History: Diabetes Mellitus, Hypertension, Rheumatoid Arthritis (RA) History of Any Multi-Drug Resistant Organisms: None Reported Past Surgical History: Breast Surgery Additional Past Surgical History / Comment(s): diagnostic laparoscopy Past Anesthesia/Blood Transfusion Reactions: No Reported Reaction Smoking Status: Former smoker Medications and Allergies Home Medications Medication Instructions Recorded Confirmed Type Atenolol [Tenormin] 12.5 mg PO DAILY 12/10/16 09/28/17 History Benazepril/Hydrochlorothiazide 1 tab PO DAILY 12/10/16 09/28/17 History [Benazepril-Hctz 20-12.5 mg Tab] EPINEPHrine (Auto Inject) [Epipen] 0.3 mg IM ONCE PRN #2 syringe 12/10/16 Rx Gemfibrozil [Lopid] 600 mg PO AC-BID 12/10/16 09/28/17 History Ibuprofen [Motrin] 800 mg PO TID PRN 12/10/16 09/28/17 History Methotrexate 50mg/2ml 25 mg SQ WANG 12/10/16 09/28/17 History [place]-3 Fatty Acids/Fish Oil [Fish 1 cap PO DAILY 12/10/16 09/28/17 History Oil 1,000 mg Softgel] amLODIPine [Norvasc] 5 mg PO DAILY 12/10/16 09/28/17 History metFORMIN HCL [Glucophage] 1,000 mg PO BID 12/10/16 09/28/17 History Cholecalciferol (Vitamin D3) 2,000 unit PO DAILY 09/28/17 09/28/17 History [Vitamin D3] HYDROcodone/APAP 10-325MG [[place] 0.5 tab PO Q8HR PRN 09/28/17 09/28/17 History 10-325] Insulin Glargine,Hum.rec.anlog 40 unit SQ HS 09/28/17 09/28/17 History [Lantus Solostar] Insulin Lispro [humaLOG Kwikpen] 5 unit SQ AC-TID 09/28/17 09/28/17 History Allergies Allergy/AdvReac Type Severity Reaction Status Date / Time bee venom protein (honey bee) Allergy Rash/Hives Verified 09/28/17 17:26 Sulfa (Sulfonamide Allergy Unknown Verified 09/28/17 17:26 Antibiotics) Physical Exam Vitals: Vital Signs Temp Pulse Pulse Pulse Pulse Resp BP 09/29/17 09:48 99.6 F 103 H 14 09/29/17 05:00 98.8 F 119 H 16 09/29/17 04:13 98.4 F 09/29/17 02:00 100 09/29/17 01:05 95 09/29/17 00:50 99.3 F 09/29/17 00:47 99.3 F 09/29/17 00:35 102 H 09/29/17 00:05 110 H 09/29/17 00:03 99.8 F H 09/28/17 23:50 114 H 09/28/17 23:35 114 H 09/28/17 23:22 100.3 F H 117 H 18 09/28/17 23:00 113 H 24 09/28/17 22:45 114 H 28 H 09/28/17 22:30 110 H 28 H 09/28/17 22:24 99.4 F 113 H 20 09/28/17 18:11 98.5 F 89 20 09/28/17 17:45 98 F 89 18 118/57 09/28/17 16:34 98.2 F 97 18 114/57 09/28/17 15:50 108 H 22 124/58 09/28/17 14:54 102.9 F H 121 H 20 137/62 BP Pulse Ox 09/29/17 09:48 122/63 93 L 09/29/17 05:00 119/56 93 L 09/29/17 04:13 09/29/17 02:00 123/67 09/29/17 01:05 109/55 09/29/17 00:50 09/29/17 00:47 09/29/17 00:35 97/55 09/29/17 00:05 106/59 09/29/17 00:03 09/28/17 23:50 109/63 09/28/17 23:35 142/63 09/28/17 23:22 135/70 97 09/28/17 23:00 113/61 95 09/28/17 22:45 117/60 97 09/28/17 22:30 115/64 99 09/28/17 22:24 115/64 99 09/28/17 18:11 98/50 95 09/28/17 17:45 96 09/28/17 16:34 95 09/28/17 15:50 93 L 09/28/17 14:54 92 L Intake and Output 09/28/17 09/29/17 09/29/17 22:59 06:59 14:59 Intake Total 600 Output Total 0 Balance 600 Intake: IV 600 Output: Estimated Blood Loss 0 Other: Voiding Method Toilet Toilet Toilet # Voids 4 3 Weight 90.5 kg Head normocephalic Neck supple Lungs clear to auscultation bilaterally no wheezing or crackles Heart regular rate and rhythm S1-S2, no rub or gallop Abdomen is left lower quadrant abdominal tenderness. No CVA tenderness. Positive bowel sounds Extremities no edema Neuro alert and orientated to 3 Results CBC & Chem 7: 09/29/17 07:10 09/29/17 07:10 Labs: Abnormal Lab Results - Last 24 Hours (Table) 09/28/17 09/28/17 09/28/17 Range/Units 15:19 15:19 15:19 WBC 24.3 H (3.8-10.6) k/uL RBC 3.67 L (3.80-5.40) m/uL Hgb 10.8 L (11.4-16.0) gm/dL Hct 32.1 L (34.0-46.0) % RDW (11.5-15.5) % Neutrophils # 22.6 H (1.3-7.7) k/uL Lymphocytes # 0.6 L (1.0-4.8) k/uL Monocytes # (0-1.0) k/uL PT 12.8 H (9.0-12.0) sec INR 1.4 H (<1.2) Sodium 132 L (137-145) mmol/L Carbon Dioxide 18 L (22-30) mmol/L BUN 22 H (7-17) mg/dL Creatinine (0.52-1.04) mg/dL Glucose 332 H (74-99) mg/dL POC Glucose (mg/dL) (75-99) mg/dL Calcium (8.4-10.2) mg/dL Total Protein 6.1 L (6.3-8.2) g/dL Albumin (3.5-5.0) g/dL Urine Appearance (Clear) Urine Protein (Negative) Urine Glucose (UA) (Negative) Urine Ketones (Negative) Urine Blood (Negative) Ur Leukocyte Esterase (Negative) Urine RBC (0-5) /hpf Urine WBC (0-5) /hpf Urine WBC Clumps (None) /hpf Urine Bacteria (None) /hpf Urine Mucus (None) /hpf 09/28/17 09/28/17 09/28/17 Range/Units 15:38 17:29 20:13 WBC (3.8-10.6) k/uL RBC (3.80-5.40) m/uL Hgb (11.4-16.0) gm/dL Hct (34.0-46.0) % RDW (11.5-15.5) % Neutrophils # (1.3-7.7) k/uL Lymphocytes # (1.0-4.8) k/uL Monocytes # (0-1.0) k/uL PT (9.0-12.0) sec INR (<1.2) Sodium (137-145) mmol/L Carbon Dioxide (22-30) mmol/L BUN (7-17) mg/dL Creatinine (0.52-1.04) mg/dL Glucose (74-99) mg/dL POC Glucose (mg/dL) 316 H 348 H (75-99) mg/dL Calcium (8.4-10.2) mg/dL Total Protein (6.3-8.2) g/dL Albumin (3.5-5.0) g/dL Urine Appearance Cloudy H (Clear) Urine Protein 2+ H (Negative) Urine Glucose (UA) 4+ H (Negative) Urine Ketones 2+ H (Negative) Urine Blood Moderate H (Negative) Ur Leukocyte Esterase Trace H (Negative) Urine RBC 21 H (0-5) /hpf Urine WBC 31 H (0-5) /hpf Urine WBC Clumps Few H (None) /hpf Urine Bacteria Many H (None) /hpf Urine Mucus Rare H (None) /hpf 09/28/17 09/29/17 09/29/17 Range/Units 22:48 06:56 07:10 WBC 20.8 H (3.8-10.6) k/uL RBC 3.36 L (3.80-5.40) m/uL Hgb 10.1 L (11.4-16.0) gm/dL Hct 30.6 L (34.0-46.0) % RDW 16.5 H (11.5-15.5) % Neutrophils # 19.0 H (1.3-7.7) k/uL Lymphocytes # 0.4 L (1.0-4.8) k/uL Monocytes # 1.1 H (0-1.0) k/uL PT (9.0-12.0) sec INR (<1.2) Sodium (137-145) mmol/L Carbon Dioxide (22-30) mmol/L BUN (7-17) mg/dL Creatinine (0.52-1.04) mg/dL Glucose (74-99) mg/dL POC Glucose (mg/dL) 328 H 309 H (75-99) mg/dL Calcium (8.4-10.2) mg/dL Total Protein (6.3-8.2) g/dL Albumin (3.5-5.0) g/dL Urine Appearance (Clear) Urine Protein (Negative) Urine Glucose (UA) (Negative) Urine Ketones (Negative) Urine Blood (Negative) Ur Leukocyte Esterase (Negative) Urine RBC (0-5) /hpf Urine WBC (0-5) /hpf Urine WBC Clumps (None) /hpf Urine Bacteria (None) /hpf Urine Mucus (None) /hpf 09/29/17 Range/Units 07:10 WBC (3.8-10.6) k/uL RBC (3.80-5.40) m/uL Hgb (11.4-16.0) gm/dL Hct (34.0-46.0) % RDW (11.5-15.5) % Neutrophils # (1.3-7.7) k/uL Lymphocytes # (1.0-4.8) k/uL Monocytes # (0-1.0) k/uL PT (9.0-12.0) sec INR (<1.2) Sodium 135 L (137-145) mmol/L Carbon Dioxide 20 L (22-30) mmol/L BUN 26 H (7-17) mg/dL Creatinine 1.12 H (0.52-1.04) mg/dL Glucose 284 H (74-99) mg/dL POC Glucose (mg/dL) (75-99) mg/dL Calcium 8.0 L (8.4-10.2) mg/dL Total Protein 5.5 L (6.3-8.2) g/dL Albumin 3.0 L (3.5-5.0) g/dL Urine Appearance (Clear) Urine Protein (Negative) Urine Glucose (UA) (Negative) Urine Ketones (Negative) Urine Blood (Negative) Ur Leukocyte Esterase (Negative) Urine RBC (0-5) /hpf Urine WBC (0-5) /hpf Urine WBC Clumps (None) /hpf Urine Bacteria (None) /hpf Urine Mucus (None) /hpf Microbiology - Last 24 Hours (Table) 09/28/17 16:31 Blood Culture Gram Stain - Preliminary Blood 09/28/17 16:31 Blood Culture - Final Blood 09/28/17 15:38 Urine Culture - Preliminary Urine,Catheterized Thrombosis Risk Factor Assmnt - Choose All That Apply Each Factor Represents 1 point: Medical pt on bed rest, Obesity (BMI >25) Other congenital or acquired thrombophilia - If yes, enter type in comment: No Thrombosis Risk Factor Assessment Total Risk Factor Score: 2 Thrombosis Risk Factor Assessment Level: Low Risk Assessment and Plan Assessment: 1. Acute left pyelonephritis with evidence of sepsis present on admission. Patient currently on IV Levaquin. Await urine culture and continue IV fluids at 100 mL an hour. Blood culture and urine culture pending 2. Left hydronephrosis secondary to distal ureteral calculus status post cystoscopy and placement of left double-J catheter per urology 3. Diabetes type 2 with elevated blood sugars. We'll resume patient's patient' s 5 units with each meal. Continue the Levemir. And sliding scale coverage. Metformin discontinued due to the increase in the creatinine 4. Acute kidney injury creatinine is 1.12. Discontinue hydrochlorothiazide and Motrin. Patient also received Toradol during this admission 5. Metabolic acidosis present on admission CO2 was gone up from 18-20 6. Coagulopathy with an INR of 1.4. No evidence of bleeding. Patient is not on anticoagulation. Recheck PT/INR 7. Constipation we'll give Colace and lactulose 8. Essential hypertension: Patient has had some episodes of hypotension. We' ll place parameters around her Norvasc and lisinopril to hold for systolic blood pressure less than 120 9. History of rheumatoid arthritis on methotrexate at home 10. Nausea and vomiting continue Zofran and will add IV Protonix likely related to patient's acute infection and kidney stones GI prophylaxis Protonix and SCDs for DVT prophylaxis until INR is evaluated Time with Patient: Greater than 30 (Greater than 60% of the total time spent in counseling and coordination of care.I performed an examination of the patient and discussed their management with the physician Guest Relations Associate. I have reviewed the Physician Guest Relations Associate's notes and agree with the documented findings and plan of care)
[2017-09-29] MEDS ORDERED: LACTULOSE 20 GM/30 ML CUP PO ONE (11:15)
[2017-09-29 11:30] LABS: INR 1.3 (<1.2); Prothrombin Time 12.3 sec (9.0-12.0)
[2017-09-29 11:35] LABS: Glucose,Whole Blood 299 mg/dL (75-99)
[2017-09-29] MEDS: DOCUSATE 100 MG CAP PO SCH ×2 (12:30→20:55)
--- NOTE | 2017-09-29 13:08 | P.PN ---
Progress Note - Text Progress Note Date: 09/29/17 The patient's temperature has been less than 100 since midnight last night. She says that her left flank pain is improved and her main complaint is left lower quadrant pain and urgency to void which is most likely related to the double-J catheter. White blood count has improved and is 20,400. What cultures are no growth so far. Urine culture is pending. The patient will be continued on Levaquin pending results of the urine culture.
[2017-09-29] MEDS ORDERED: PROCHLORPERAZINE 10 MG TAB PO PRN (13:23)
[2017-09-29] MEDS: KETOROLAC 30 MG/ML 1 ML VIAL IVP PRN ×2 (14:07→20:52)
[2017-09-29] MEDS ORDERED: SODIUM CHLORIDE 0.9% 500 ML IV ONE (15:37)
[2017-09-29 16:47] LABS: Glucose,Whole Blood 275 mg/dL (75-99)
[2017-09-29 17:03] LABS: Iron Saturation 2.04 (12.00-45.00)
[2017-09-29 18:37] LABS: Amphetamine Screen,Urine Not Detected (NotDetected); Barbiturate Screen,Urine Not Detected (NotDetected); Benzodiazepines Screen,Urine Not Detected (NotDetected); Cocaine Screen,Urine Not Detected (NotDetected); Methadone Screen, Urine Not Detected (NotDetected); Opiate Screen,Urine Detected (NotDetected); Oxycodone Screen, Urine Not Detected (NotDetected); Phencyclidine Screen,Urine Not Detected (NotDetected); Tricyclic Antidepressant,Urine Detected (NotDetected); Urn Cannabinoid Scrn Not Detected (NotDetected)
[2017-09-29 20:30] LABS: Glucose,Whole Blood 222 mg/dL (75-99)
[2017-09-29] MEDS: LEVOFLOXACIN 500MG-D5W PMX 500 MG in DEXTROSE/WATER 1 100ML.BAG IVPB SCH (20:53)
[2017-09-29] MEDS ORDERED: INSULIN DETEMIR 100 UNIT/ML 10 ML VIAL SQ SCH (21:00)
[2017-09-30] MEDS: KETOROLAC 30 MG/ML 1 ML VIAL IVP PRN (04:16)
[2017-09-30] MEDS: SODIUM CHLORIDE 0.9% 1,000 ML IV SCH ×2 (06:02→16:21)
[2017-09-30 06:57] LABS: Glucose,Whole Blood 69 mg/dL (75-99)
[2017-09-30 07:20] LABS: Glucose,Whole Blood 67 mg/dL (75-99)
[2017-09-30 07:28] LABS: Basophils % (A) 0 %; Eosinophils % (A) 0 %; HCT 28.3 % (34.0-46.0); HGB 9.1 gm/dL (11.4-16.0); Lymphocytes # (A) 0.7 k/uL (1.0-4.8); Lymphocytes % (A) 3 %; MCHC 32.2 g/dL (31.0-37.0); MCV 89.8 fL (80.0-100.0); Mean Platelet Volume 6.6; Monocytes # (A) 1.2 k/uL (0-1.0); Monocytes % (A) 6 %; Neutrophils # (A) 18.8 k/uL (1.3-7.7); Neutrophils % (A) 89 %; Platelet Count 315 k/uL (150-450); RBC 3.15 m/uL (3.80-5.40); RDW 15.9 % (11.5-15.5); WBC 21.3 k/uL (3.8-10.6)
[2017-09-30 07:33] LABS: INR 1.2 (<1.2); Prothrombin Time 11.1 sec (9.0-12.0)
[2017-09-30 07:42] LABS: Albumin 2.5 g/dL (3.5-5.0); Calcium 8.1 mg/dL (8.4-10.2); Potassium 3.5 mmol/L (3.5-5.1); Total Bilirubin 0.2 mg/dL (0.2-1.3); Total Protein 4.8 g/dL (6.3-8.2)
[2017-09-30 07:43] LABS: Glucose,Whole Blood 94 mg/dL (75-99)
[2017-09-30] MEDS: INSULIN ASPART 100 UNIT/ML 1 ML 10 ML VIAL SQ SCH ×5 (08:37→21:42)
[2017-09-30] MEDS: PANTOPRAZOLE 40 MG/10 ML VIAL IVP SCH (08:40)
[2017-09-30] MEDS: GEMFIBROZIL 600 MG TAB PO SCH (08:40)
[2017-09-30] MEDS: DOCUSATE 100 MG CAP PO SCH ×2 (08:40→21:41)
[2017-09-30] MEDS: CHOLECALCIFEROL 1,000 UNIT TAB PO SCH (08:41)
[2017-09-30] MEDS: HYDROcodone/APAP 5-325MG 1 EACH TAB PO PRN ×3 (08:49→21:43)
--- NOTE | 2017-09-30 11:18 | P.PN ---
Subjective Progress Note Date: 09/30/17 This is a 62-year-old female, patient of Dr. Peters. She has a known past medical history of kidney stones, diabetes mellitus, hypertension and rheumatoid arthritis. Patient presents to the emergency room with complaints of a possible UTI. She noticed some left lower quadrant and left upper back pain and had some burning with urination about 4 days ago. Initially her PCP had prescribed Bactrim outpatient. However, patient did not start taking it. She had increased symptoms of nausea and vomiting and was having chills and sweats. Patient felt feverish. She presented to the emergency room for further evaluation and treatment. She was found to have a temp of 102.9, tachycardic and a white count of 24.3. She was started on IV Rocephin and Levaquin. She had a computed tomography scan of the abdomen completed showing obstruction of the left upper collecting system at the left ureterovesical junction with calculus. Moderately severe perinephric edema. Urology has been consulted. Patient has undergone cystoscopy with placement of a left double-J catheter for her left hydronephrosis secondary to distal ureteral calculus. Patient reports improvement in her pain. She still having nausea. No evidence of stone. Her creatinine has climbed to 1.1 to the Motrin hydrochlorothiazide and metformin have been discontinued. She also received Toradol yesterday that has been discontinued. She is complaining of constipation reports her last bowel movement was about a week ago. Denies any chest pain or shortness of breath. The burning with urination has improved. White count is down to 20.8. Hemoglobin has also dropped from 10.8-10.1. Patient denies any hematuria. Iron studies have been ordered. 09/30/2017 she was hypotensive yesterday required fluid bolus. Blood pressures have remained on the lower side. BP this morning was 108/68. Patient was found to have a positive blood culture with gram-negative bacilli urine culture also growing gram-negative bacilli. She's currently on Levaquin. Infectious disease has been consulted. Patient's Norvasc and lisinopril were discontinued. White count has increased to 21.8. Patient was hypoglycemic this morning. She reports having a poor oral intake. Nauseated with no further episodes of vomiting. Reports having a bowel movement. Denies any burning with urination. Denies any blood in her urine. Objective - Vital Signs Vital signs: Vital Signs Temp 97.5 F L 09/30/17 06:35 Pulse 93 09/30/17 06:35 Resp 18 09/30/17 06:35 BP 108/68 09/30/17 06:35 Pulse Ox 95 09/30/17 06:35 Intake & Output 09/29/17 09/30/17 09/30/17 18:59 06:59 18:59 Intake Total 800 900 Balance 800 900 Intake: IV 900 Levofloxacin 500Mg-D5w 100 Pmx 500 mg In Dextrose/ Water 1 100ml.bag @ 100 mls/hr IVPB Q24H [facility] Rx#: [id number] Sodium Chloride 0.9% 1, 800 000 ml @ 100 mls/hr IV . Q10H [facility] Rx#:[id number] Intake, IV Titration 800 Amount Sodium Chloride 0.9% 1, 800 000 ml @ 100 mls/hr IV . Q10H [facility] Rx#:[id number] Other: Voiding Method Toilet Toilet - Exam Head normocephalic Neck supple Lungs clear to auscultation bilaterally no wheezing or crackles Heart regular rate and rhythm S1-S2, no rub or gallop Abdomen is soft and left-sided tenderness. No flank tenderness nondistended positive bowel sounds no hepatosplenomegaly Extremities no edema Neuro alert and orientated to 3 - Labs CBC & Chem 7: 09/30/17 07:05 09/30/17 07:05 Labs: Abnormal Lab Results - Last 24 Hours (Table) 09/29/17 09/29/17 09/29/17 Range/Units 10:50 10:50 11:33 WBC (3.8-10.6) k/uL RBC (3.80-5.40) m/uL Hgb (11.4-16.0) gm/dL Hct (34.0-46.0) % RDW (11.5-15.5) % Neutrophils # (1.3-7.7) k/uL Lymphocytes # (1.0-4.8) k/uL Monocytes # (0-1.0) k/uL PT 12.3 H (9.0-12.0) sec INR 1.3 H (<1.2) Chloride (98-107) mmol/L Carbon Dioxide (22-30) mmol/L BUN (7-17) mg/dL Creatinine (0.52-1.04) mg/dL Glucose (74-99) mg/dL POC Glucose (mg/dL) 299 H (75-99) mg/dL Calcium (8.4-10.2) mg/dL Iron 5 L (50-170) ug/dL Iron Saturation 2.04 L (12.00-45.00) Ferritin 386.4 H (10.0-291.0) ng/mL Total Protein (6.3-8.2) g/dL Albumin (3.5-5.0) g/dL Urine Opiates Screen (NotDetected) U Tricyclic Antidepress (NotDetected) 09/29/17 09/29/17 09/29/17 Range/Units 16:46 18:10 20:10 WBC (3.8-10.6) k/uL RBC (3.80-5.40) m/uL Hgb (11.4-16.0) gm/dL Hct (34.0-46.0) % RDW (11.5-15.5) % Neutrophils # (1.3-7.7) k/uL Lymphocytes # (1.0-4.8) k/uL Monocytes # (0-1.0) k/uL PT (9.0-12.0) sec INR (<1.2) Chloride (98-107) mmol/L Carbon Dioxide (22-30) mmol/L BUN (7-17) mg/dL Creatinine (0.52-1.04) mg/dL Glucose (74-99) mg/dL POC Glucose (mg/dL) 275 H 222 H (75-99) mg/dL Calcium (8.4-10.2) mg/dL Iron (50-170) ug/dL Iron Saturation (12.00-45.00) Ferritin (10.0-291.0) ng/mL Total Protein (6.3-8.2) g/dL Albumin (3.5-5.0) g/dL Urine Opiates Screen Detected H (NotDetected) U Tricyclic Antidepress Detected H (NotDetected) 09/30/17 09/30/17 09/30/17 Range/Units 06:52 07:05 07:05 WBC 21.3 H (3.8-10.6) k/uL RBC 3.15 L (3.80-5.40) m/uL Hgb 9.1 L (11.4-16.0) gm/dL Hct 28.3 L (34.0-46.0) % RDW 15.9 H (11.5-15.5) % Neutrophils # 18.8 H (1.3-7.7) k/uL Lymphocytes # 0.7 L (1.0-4.8) k/uL Monocytes # 1.2 H (0-1.0) k/uL PT (9.0-12.0) sec INR (<1.2) Chloride 109 H (98-107) mmol/L Carbon Dioxide 19 L (22-30) mmol/L BUN 25 H (7-17) mg/dL Creatinine 1.13 H (0.52-1.04) mg/dL Glucose 59 L (74-99) mg/dL POC Glucose (mg/dL) 69 L (75-99) mg/dL Calcium 8.1 L (8.4-10.2) mg/dL Iron (50-170) ug/dL Iron Saturation (12.00-45.00) Ferritin (10.0-291.0) ng/mL Total Protein 4.8 L (6.3-8.2) g/dL Albumin 2.5 L (3.5-5.0) g/dL Urine Opiates Screen (NotDetected) U Tricyclic Antidepress (NotDetected) 09/30/17 09/30/17 Range/Units 07:05 07:18 WBC (3.8-10.6) k/uL RBC (3.80-5.40) m/uL Hgb (11.4-16.0) gm/dL Hct (34.0-46.0) % RDW (11.5-15.5) % Neutrophils # (1.3-7.7) k/uL Lymphocytes # (1.0-4.8) k/uL Monocytes # (0-1.0) k/uL PT (9.0-12.0) sec INR 1.2 H (<1.2) Chloride (98-107) mmol/L Carbon Dioxide (22-30) mmol/L BUN (7-17) mg/dL Creatinine (0.52-1.04) mg/dL Glucose (74-99) mg/dL POC Glucose (mg/dL) 67 L (75-99) mg/dL Calcium (8.4-10.2) mg/dL Iron (50-170) ug/dL Iron Saturation (12.00-45.00) Ferritin (10.0-291.0) ng/mL Total Protein (6.3-8.2) g/dL Albumin (3.5-5.0) g/dL Urine Opiates Screen (NotDetected) U Tricyclic Antidepress (NotDetected) Microbiology - Last 24 Hours (Table) 09/28/17 16:31 Blood Culture Gram Stain - Preliminary Blood Blood Culture - Preliminary Gram Neg Bacilli 09/28/17 15:38 Urine Culture - Preliminary Urine,Catheterized Gram Neg Bacilli Assessment and Plan Assessment: 1. Acute left pyelonephritis with evidence of sepsis present on admission. Patient currently on IV Levaquin. Continue with IV fluids, normal saline at 100 mL's an hour. Blood culture and urine culture growing gram-negative bacilli. Patient remains tachycardic likely related to her sepsis. We'll place her on telemetry and continuous fluids 2. Left hydronephrosis secondary to distal ureteral calculus status post cystoscopy and placement of left double-J catheter per urology 3. Diabetes type 2: Patient's hyperglycemia has resolved. Patient is now hypoglycemic this morning. This is likely related to poor oral intake. At this time we'll decrease her Levemir from 40-35 units at bedtime. Discontinued the scheduled 5 units of NovoLog with each meal. And will just continue with the sliding scale. Check A1c. Metformin discontinued due to the increase in the creatinine 4. Acute kidney injury creatinine is 1.12. Discontinue hydrochlorothiazide and Motrin. Patient also received Toradol during this admission. Continue with IV fluids and monitor kidney function creatinine 1.1. 5. Metabolic acidosis present on admission CO2 was gone up from 18-20 6. Coagulopathy with an INR of 1.4. No evidence of bleeding. Patient is not on anticoagulation. Repeat INR is 1.2 7. Constipation : Resolved with Colace and lactulose 8. Essential hypertension: Patient has had some episodes of hypotension. Patient required fluid bolus. Discontinue Norvasc and lisinopril. Parameters have been placed around metoprolol to hold for systolic blood pressure less than 110 9. History of rheumatoid arthritis on methotrexate at home 10. Nausea and vomiting continue Zofran and will add IV Protonix likely related to patient's acute infection and kidney stones 11. Iron deficiency anemia: Hemoglobin 9.1. Total iron is 5. Add ferrous sulfate 325 mg twice a day 12. Bacteremia with blood culture growing gram-negative bacilli. urine is still likely source of infection. Repeat blood culture. Will have patient evaluated by infectious disease. GI prophylaxis Protonix and SCDs for DVT prophylaxis until INR is evaluated
[2017-09-30 11:37] LABS: Glucose,Whole Blood 118 mg/dL (75-99)
[2017-09-30] MEDS: FERROUS SULFATE 325 MG TAB PO SCH ×2 (11:40→21:43)
[2017-09-30] MEDS ORDERED: SODIUM CHLORIDE 0.9% 500 ML IV ONE (14:43)
[2017-09-30] MEDS: PIPERACILLIN-TAZOBACTAM 3.375 GM in DEXTROSE/WATER 1 50ML.BAG IVPB SCH ×2 (16:21→23:47)
--- NOTE | 2017-09-30 17:14 | CONS ---
CONSULTATION DATE OF SERVICE: 09/30/2017 REASON FOR CONSULTATION: Sepsis and bacteremia. HISTORY OF PRESENT ILLNESS: The patient is a 62-year-old female with a past medical history significant for diabetes mellitus, hypertension, rheumatoid arthritis, history of breast surgery, presenting to the ER at [facility] yesterday by the EMS with the chief complaints of dysuria and pain in her left flank area. Her symptoms had been going on for about 4 days prior to presentation to hospital. She has been seen in the outpatient setting by her primary care physician and has been treated with Bactrim without any improvement. The patient started having increasing symptoms of nausea and vomiting for the last 2 days, unable to keep anything down. The patient was complaining of pain in the left flank to left lower quadrant area, pain described to be more of a dull aching pain, almost 7 to 8 out of 10, and no radiation. The patient has been complaining of some burning of urine and frequency, but no hematuria. With these symptoms, the patient was evaluated by the ER physician. On arrival in the ER, the patient did have a fever of 102.9 degrees Fahrenheit. The patient had an elevated white count of 24.3. Her urine was positive with moderate blood, leukocyte esterases and WBC. The patient did have a CT of the abdomen and pelvis completed that showed mild subsegmental atelectasis, obstruction of the left ureter collecting system at the left ureterovesical junction with calculus. She subsequently was evaluated by Urology. She was taken to the OR and is status post cystoscopy and placement of a left double-J catheter. The patient did have blood cultures drawn which came back positive with Gram- negative bacilli. That has prompted this infectious disease consultation. Currently the patient is being treated with Levaquin and Zosyn. REVIEW OF SYSTEMS: CONSTITUTIONAL: Positive for weakness along with a fever. EYES: No complaint. ENT: No complaint. RESPIRATORY: No complaint. CARDIOVASCULAR: No complaint. GENITOURINARY: As per HPI. GASTROINTESTINAL: As per HPI. MUSCULOSKELETAL: No complaint. INTEGUMENTARY: No complaint. PSYCHOLOGICAL: No complaint. ENDOCRINE: No complaint. NEUROLOGICAL: No complaint. PAST MEDICAL HISTORY: 1. Diabetes mellitus. 2. Hypertension. 3. Rheumatoid arthritis. PAST SURGICAL HISTORY: Diagnostic laparoscopy and breast surgery. SOCIAL HISTORY: Remote history of smoking. No drinking or any drug use. FAMILY HISTORY: No pertinent findings noticed. ALLERGIES: SULFA ANTIBIOTIC. CURRENT MEDICATIONS: 1. Zosyn. 2. Protonix. 3. Zofran. 4. Narcan. 5. Morphine sulfate. 6. Levofloxacin. 7. Toradol. 8. Levemir. 9. NovoLog. 10.Lopid. 11.Colace. 12.Vitamin D3. 13.Tenormin. PHYSICAL EXAMINATION: Blood pressure is 108/68 with a pulse of 93, temperature 97.5. T-max is 102. She is 95% on room air. General description is a middle-aged female lying in bed in no distress. No tachypnea or accessory muscle of respiration use. HEENT examination shows slight pallor. No scleral icterus. Oral mucosa membrane is dry. No pharyngeal erythema or thrush. NECK: Trachea is central. No thyromegaly. LUNGS: Unlabored breathing. Clear to auscultation anteriorly. No wheeze or crackle. HEART: S1, S2. Regular rate and rhythm. No added sound. ABDOMEN: Soft. No tenderness. No guarding or rigidity. No organomegaly. EXTREMITIES: No edema feet. SKIN EXAMINATION: No rash or mass palpable. Neurologically patient is awake, alert, oriented x3. Mood and affect normal. LABS: Hemoglobin is 9.1, white count 21.3. Admission white count was 24.3. BUN of 25, creatinine 1.13. Electrolytes have been normal. Urine has been positive. Blood and urine cultures currently showing Gram-negative bacilli. CT abdomen and pelvis report as mentioned above. DIAGNOSTIC IMPRESSION AND PLAN: Patient admitted to hospital with sepsis in a patient who did have a fever of 102.5 degrees Fahrenheit. The patient was tachycardic with elevated white count of 24,000, now with a Gram-negative bacteremia indicating a Gram-negative sepsis, source being the urine, in a patient who did have a complicated UTI with a right ureterovesical junction stone with resultant hydronephrosis, status post cystoscopy and double-J catheter placement on the left side, likely from enteric Gram-negative pathogen in a patient who has failed outpatient Bactrim DS therapy. PLAN: 1. The patient will be continued on Zosyn 3.375 grams IV q.8 hours in addition to Levaquin to provide adequate coverage for Gram-negative, both community-acquired as well as Gram-negative sepsis in view of the failure of outpatient Bactrim therapy. 2. Aggressive IV fluid. 3. Depending upon her clinical response as well as cultures, will adjust her medication further if needed. Thank you for this consultation. Will follow this patient along with you. DARLIN / YADI: [id number] /
[2017-09-30 17:20] LABS: Glucose,Whole Blood 149 mg/dL (75-99)
[2017-09-30 18:38] LABS: Hemoglobin A1C 10.3 % (4.0-6.0)
[2017-09-30 20:07] LABS: Glucose,Whole Blood 159 mg/dL (75-99)
[2017-09-30] MEDS: ATENOLOL 12.5 MG TAB PO SCH (21:41)
[2017-09-30] MEDS: INSULIN DETEMIR 100 UNIT/ML 10 ML VIAL SQ SCH (21:44)
[2017-09-30] MEDS: LEVOFLOXACIN 500MG-D5W PMX 500 MG in DEXTROSE/WATER 1 100ML.BAG IVPB SCH (21:55)
[2017-10-01] MEDS: SODIUM CHLORIDE 0.9% 1,000 ML IV SCH ×2 (01:08→07:54)
[2017-10-01 07:47] LABS: Glucose,Whole Blood 166 mg/dL (75-99)
[2017-10-01] MEDS: DOCUSATE 100 MG CAP PO SCH ×2 (07:53→21:16)
[2017-10-01] MEDS: INSULIN ASPART 100 UNIT/ML 1 ML 10 ML VIAL SQ SCH ×4 (07:54→21:18)
[2017-10-01] MEDS: GEMFIBROZIL 600 MG TAB PO SCH (07:54)
[2017-10-01] MEDS: PIPERACILLIN-TAZOBACTAM 3.375 GM in DEXTROSE/WATER 1 50ML.BAG IVPB SCH (07:54)
[2017-10-01] MEDS: CHOLECALCIFEROL 1,000 UNIT TAB PO SCH (07:55)
[2017-10-01] MEDS: PANTOPRAZOLE 40 MG/10 ML VIAL IVP SCH (07:55)
[2017-10-01] MEDS: FERROUS SULFATE 325 MG TAB PO SCH ×2 (07:55→21:17)
[2017-10-01] MEDS: KETOROLAC 30 MG/ML 1 ML VIAL IVP PRN (07:59)
[2017-10-01 09:23] LABS: Prothrombin Time 10.2 sec (9.0-12.0)
[2017-10-01 09:26] LABS: Basophils % (A) 0 %; Eosinophils # (A) 0.2 k/uL (0-0.7); Eosinophils % (A) 1 %; HCT 28.1 % (34.0-46.0); HGB 8.8 gm/dL (11.4-16.0); Hypochromasia Slight; Lymphocytes # (A) 0.9 k/uL (1.0-4.8); Lymphocytes % (A) 5 %; MCH 28.2 pg (25.0-35.0); MCHC 31.2 g/dL (31.0-37.0); MCV 90.4 fL (80.0-100.0); Monocytes % (A) 6 %; Neutrophils # (A) 15.5 k/uL (1.3-7.7); Neutrophils % (A) 87 %; Platelet Count 380 k/uL (150-450); RBC 3.11 m/uL (3.80-5.40); RDW 15.8 % (11.5-15.5); WBC 17.9 k/uL (3.8-10.6)
[2017-10-01 09:32] LABS: ALT 37 U/L (9-52); AST 22 U/L (14-36); Albumin 2.5 g/dL (3.5-5.0); Alkaline Phosphatase 83 U/L (38-126); Anion Gap 11 mmol/L; Blood Urea Nitrogen 19 mg/dL (7-17); Calcium 8.3 mg/dL (8.4-10.2); Carbon Dioxide 19 mmol/L (22-30); Chloride 110 mmol/L (98-107); Glucose 144 mg/dL (74-99); Potassium 3.7 mmol/L (3.5-5.1); Sodium 140 mmol/L (137-145); Total Bilirubin <0.1 mg/dL (0.2-1.3); Total Protein 4.9 g/dL (6.3-8.2)
--- NOTE | 2017-10-01 10:37 | P.PN ---
Progress Note - Text Progress Note Date: 09/30/17 Patient is afebrile and says that her flank pain is minimal at the present time. She says she continues to feel better each day. Her white blood count remains elevated at 21,300. Blood and urine cultures are growing a gram- negative philipp but the identification and sensitivities are pending.
[2017-10-01] MEDS ORDERED: FUROSEMIDE 10 MG/ML 2 ML VIAL IV ONE (11:22)
--- NOTE | 2017-10-01 12:00 | P.PN ---
Progress Note - Text Progress Note Date: 10/01/17 The patient is afebrile. Her main complaint is some shortness of breath which apparently is related to pulmonary edema from over ideal hydration from her IV fluids. Her white blood count is 17,300 and is improved. Blood and urine cultures are growing Proteus mirabilis which is sensitive to Levaquin. I have discontinued Zosyn in view of this. The patient will need to be discharged on either oral Levaquin or IV Levaquin for at least 2 weeks. I would like to see her back in 7-10 days. She will be set up for ureteroscopy with lithotripsy in approximately 2 weeks.
[2017-10-01 12:07] LABS: Glucose,Whole Blood 239 mg/dL (75-99)
[2017-10-01] MEDS: cefTRIAXone IN SWFI 2,000 MG/20 ML SYRINGE IVP SCH (13:55)
[2017-10-01] MEDS: SODIUM CHLORIDE 0.9% 1,000 ML IV STA (13:55)
--- NOTE | 2017-10-01 14:36 | PN ---
PROGRESS NOTE DATE OF SERVICE: 10/01/2017. REASON FOR FOLLOWUP: Proteus mirabilis bacteremia secondary to urinary source. INTERVAL HISTORY: The patient is afebrile this morning. She is breathing comfortably. Complaining of pain in her left flank area but no worsening. No nausea, vomiting, or any diarrhea. Complains of some shortness of breath though. EXAMINATION: Blood pressure 105/56, pulse of 82, temperature 97.9. She is 96% on room air. General description is a middle aged female, lying in bed in no distress. Respiratory system: Unlabored breathing, clear to auscultation anteriorly. Heart S1, S2. Regular rate and rhythm. Abdomen soft, no tenderness. LABS: Hemoglobin 8.8, white count 17.9 with a BUN of 19, creatinine 0.90. DIAGNOSTIC IMPRESSION AND PLAN: Patient with Proteus mirabilis bacteremia secondary to the urinary source. The patient, at this time, antibiotic will be adjusted to Rocephin 2 g daily in addition to oral Cipro. Once the patient continue to improve, and white count normalizes, hopefully plan to finish therapy with oral Cipro for another 10 days. No need for PICC line on discharge or IV antibiotics. Continue supportive care. MMODL / IJN: [id number] /
[2017-10-01] MEDS: HYDROcodone/APAP 5-325MG 1 EACH TAB PO PRN ×2 (14:52→21:17)
[2017-10-01 16:46] LABS: Glucose,Whole Blood 242 mg/dL (75-99)
--- NOTE | 2017-10-01 16:53 | P.PN ---
Subjective Progress Note Date: 10/01/17 This is a 62-year-old female, patient of Dr. Peters. She has a known past medical history of kidney stones, diabetes mellitus, hypertension and rheumatoid arthritis. Patient presents to the emergency room with complaints of a possible UTI. She noticed some left lower quadrant and left upper back pain and had some burning with urination about 4 days ago. Initially her PCP had prescribed Bactrim outpatient. However, patient did not start taking it. She had increased symptoms of nausea and vomiting and was having chills and sweats. Patient felt feverish. She presented to the emergency room for further evaluation and treatment. She was found to have a temp of 102.9, tachycardic and a white count of 24.3. She was started on IV Rocephin and Levaquin. She had a computed tomography scan of the abdomen completed showing obstruction of the left upper collecting system at the left ureterovesical junction with calculus. Moderately severe perinephric edema. Urology has been consulted. Patient has undergone cystoscopy with placement of a left double-J catheter for her left hydronephrosis secondary to distal ureteral calculus. Patient reports improvement in her pain. She still having nausea. No evidence of stone. Her creatinine has climbed to 1.1 to the Motrin hydrochlorothiazide and metformin have been discontinued. She also received Toradol yesterday that has been discontinued. She is complaining of constipation reports her last bowel movement was about a week ago. Denies any chest pain or shortness of breath. The burning with urination has improved. White count is down to 20.8. Hemoglobin has also dropped from 10.8-10.1. Patient denies any hematuria. Iron studies have been ordered. 09/30/2017 she was hypotensive yesterday required fluid bolus. Blood pressures have remained on the lower side. BP this morning was 108/68. Patient was found to have a positive blood culture with gram-negative bacilli urine culture also growing gram-negative bacilli. She's currently on Levaquin. Infectious disease has been consulted. Patient's Norvasc and lisinopril were discontinued. White count has increased to 21.8. Patient was hypoglycemic this morning. She reports having a poor oral intake. Nauseated with no further episodes of vomiting. Reports having a bowel movement. Denies any burning with urination. Denies any blood in her urine. 10/01/2017 Patient currently sitting up in chair. Blood pressure 105/56. Blood Cultures positive for Proteus Mirabilis. WBC down to 17.9. Afebrile. ID following. Currently on zosyn and levoquin. Patient does complain of some SOB and requiring 2L of oxygen. Will decrease fluids down to 20ml/hr and give lasix 20mg. Denies chest Pain. Decrease nausea and no episodes of vomiting. Per Urology patient will be set up for ureterscopy with lithotripsy in approximately 2 weeks. Objective - Vital Signs Vital signs: Vital Signs Temp 97.9 F 10/01/17 06:22 Pulse 82 10/01/17 06:22 Resp 18 10/01/17 06:22 BP 105/56 10/01/17 06:22 Pulse Ox 96 10/01/17 06:22 Intake & Output 09/30/17 10/01/17 10/01/17 18:59 06:59 18:59 Intake Total 800 1940 Balance 800 1940 Weight 90.5 kg Intake: IV 800 Sodium Chloride 0.9% 1, 800 000 ml @ 100 mls/hr IV . Q10H [facility] Rx#:[id number] Intake, IV Titration 1100 Amount Levofloxacin 500Mg-D5w 100 Pmx 500 mg In Dextrose/ Water 1 100ml.bag @ 100 mls/hr IVPB Q24H [facility] Rx#: [id number] Piperacillin-Tazobactam 3 100 .375 gm In Dextrose/Water 1 50ml.bag @ 12.5 mls/hr IVPB Q8HR [facility] Rx#: [id number] Sodium Chloride 0.9% 1, 900 000 ml @ 100 mls/hr IV . Q10H [facility] Rx#:[id number] Oral 840 Other: Voiding Method Toilet Toilet Toilet # Voids 2 # Bowel Movements 1 - Exam Head normocephalic Neck supple Lungs clear to auscultation bilaterally no wheezing or crackles Heart regular rate and rhythm S1-S2, no rub or gallop Abdomen is soft and left-sided tenderness. No flank tenderness nondistended positive bowel sounds no hepatosplenomegaly Extremities no edema Neuro alert and orientated to 3 - Labs CBC & Chem 7: 10/01/17 07:17 10/01/17 07:17 Labs: Abnormal Lab Results - Last 24 Hours (Table) 09/30/17 09/30/17 09/30/17 Range/Units 09:52 17:19 20:05 WBC (3.8-10.6) k/uL RBC (3.80-5.40) m/uL Hgb (11.4-16.0) gm/dL Hct (34.0-46.0) % RDW (11.5-15.5) % Neutrophils # (1.3-7.7) k/uL Lymphocytes # (1.0-4.8) k/uL Chloride (98-107) mmol/L Carbon Dioxide (22-30) mmol/L BUN (7-17) mg/dL Glucose (74-99) mg/dL POC Glucose (mg/dL) 149 H 159 H (75-99) mg/dL Hemoglobin A1c 10.3 H (4.0-6.0) % Calcium (8.4-10.2) mg/dL Total Bilirubin (0.2-1.3) mg/dL Total Protein (6.3-8.2) g/dL Albumin (3.5-5.0) g/dL 10/01/17 10/01/17 10/01/17 Range/Units 07:17 07:17 07:32 WBC 17.9 H (3.8-10.6) k/uL RBC 3.11 L (3.80-5.40) m/uL Hgb 8.8 L (11.4-16.0) gm/dL Hct 28.1 L (34.0-46.0) % RDW 15.8 H (11.5-15.5) % Neutrophils # 15.5 H (1.3-7.7) k/uL Lymphocytes # 0.9 L (1.0-4.8) k/uL Chloride 110 H (98-107) mmol/L Carbon Dioxide 19 L (22-30) mmol/L BUN 19 H (7-17) mg/dL Glucose 144 H (74-99) mg/dL POC Glucose (mg/dL) 166 H (75-99) mg/dL Hemoglobin A1c (4.0-6.0) % Calcium 8.3 L (8.4-10.2) mg/dL Total Bilirubin <0.1 L (0.2-1.3) mg/dL Total Protein 4.9 L (6.3-8.2) g/dL Albumin 2.5 L (3.5-5.0) g/dL 10/01/17 Range/Units 12:04 WBC (3.8-10.6) k/uL RBC (3.80-5.40) m/uL Hgb (11.4-16.0) gm/dL Hct (34.0-46.0) % RDW (11.5-15.5) % Neutrophils # (1.3-7.7) k/uL Lymphocytes # (1.0-4.8) k/uL Chloride (98-107) mmol/L Carbon Dioxide (22-30) mmol/L BUN (7-17) mg/dL Glucose (74-99) mg/dL POC Glucose (mg/dL) 239 H (75-99) mg/dL Hemoglobin A1c (4.0-6.0) % Calcium (8.4-10.2) mg/dL Total Bilirubin (0.2-1.3) mg/dL Total Protein (6.3-8.2) g/dL Albumin (3.5-5.0) g/dL Microbiology - Last 24 Hours (Table) 09/28/17 16:31 Blood Culture Gram Stain - Final Blood Blood Culture - Final Proteus mirabilis 09/28/17 15:38 Urine Culture - Final Urine,Catheterized Proteus mirabilis Assessment and Plan Assessment: 1. Acute left pyelonephritis with evidence of sepsis present on admission. Patient currently on IV Levaquin and Zosyn. Blood cultures positive for Proteus Mirabilis. Heart heart was tachycardic but is now 80-90's. 2. Fluid overload: will decrease fluid to 20ml/hr and order 20mg lasix. 3. Left hydronephrosis secondary to distal ureteral calculus status post cystoscopy and placement of left double-J catheter per urology 4. Diabetes type 2: Patient's hyperglycemia has resolved. Patient is now hypoglycemic this morning. This is likely related to poor oral intake. At this time we'll decrease her Levemir from 40-35 units at bedtime. Discontinued the scheduled 5 units of NovoLog with each meal. And will just continue with the sliding scale. Metformin discontinued due to the increase in the creatinine. Blood sugars improved. A1C 10.3. 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 Acute kidney injury creatinine is 1.12. Discontinue hydrochlorothiazide and Motrin. Patient also received Toradol during this admission. Kindey Function improving. BUN 19 and Creat 0.90 6. Metabolic acidosis present on admission CO2 was gone up from 18-20 7. Coagulopathy with an INR of 1.4. No evidence of bleeding. Patient is not on anticoagulation. Repeat INR is 1.2. INR today 1.0 8. Constipation : Resolved with Colace and lactulose 9. Essential hypertension: Patient has had some episodes of hypotension. Patient required fluid bolus. Discontinue Norvasc and lisinopril. Parameters have been placed around metoprolol to hold for systolic blood pressure less than 110 10. History of rheumatoid arthritis on methotrexate at home 11. Nausea and vomiting continue Zofran and will add IV Protonix likely related to patient's acute infection and kidney stones 12. Iron deficiency anemia: Hemoglobin 8.8. Total iron is 5. Add ferrous sulfate 325 mg twice a day 13. Bacteremia with blood culture growing gram-negative bacilli. urine is still likely source of infection. Blood Culture positive for Proteus Mirabilis. Infectious disease following. GI prophylaxis Protonix and SCDs for DVT prophylaxis until INR is evaluated
[2017-10-01 20:13] LABS: Glucose,Whole Blood 209 mg/dL (75-99)
[2017-10-01] MEDS: ATENOLOL 12.5 MG TAB PO SCH (21:16)
[2017-10-01] MEDS: CIPROFLOXACIN HCL 500 MG TAB PO SCH (21:17)
[2017-10-01] MEDS: INSULIN DETEMIR 100 UNIT/ML 10 ML VIAL SQ SCH (21:18)
[2017-10-02] MEDS: HYDROcodone/APAP 5-325MG 1 EACH TAB PO PRN ×4 (05:29→20:17)
[2017-10-02 07:22] LABS: Albumin 2.7 g/dL (3.5-5.0); Calcium 8.3 mg/dL (8.4-10.2); Potassium 3.3 mmol/L (3.5-5.1); Total Bilirubin 0.2 mg/dL (0.2-1.3); Total Protein 5.2 g/dL (6.3-8.2)
[2017-10-02 07:30] LABS: Anisocytosis Slight; Basophils % (A) 0 %; Eosinophils # (A) 0.3 k/uL (0-0.7); Eosinophils % (A) 2 %; HGB 9.2 gm/dL (11.4-16.0); Lymphocytes # (A) 1.3 k/uL (1.0-4.8); Lymphocytes % (A) 9 %; MCH 29.6 pg (25.0-35.0); MCHC 32.7 g/dL (31.0-37.0); MCV 90.3 fL (80.0-100.0); Mean Platelet Volume 6.4; Monocytes # (A) 1.1 k/uL (0-1.0); Monocytes % (A) 8 %; Neutrophils # (A) 11.8 k/uL (1.3-7.7); Neutrophils % (A) 79 %; Platelet Count 396 k/uL (150-450); RBC 3.11 m/uL (3.80-5.40); RDW 16.6 % (11.5-15.5); WBC 14.9 k/uL (3.8-10.6)
[2017-10-02 07:32] LABS: Glucose,Whole Blood 155 mg/dL (75-99)
[2017-10-02] MEDS: INSULIN ASPART 100 UNIT/ML 1 ML 10 ML VIAL SQ SCH ×4 (07:39→21:03)
[2017-10-02] MEDS: GEMFIBROZIL 600 MG TAB PO SCH (07:39)
[2017-10-02] MEDS: cefTRIAXone IN SWFI 2,000 MG/20 ML SYRINGE IVP SCH (07:40)
[2017-10-02] MEDS: CHOLECALCIFEROL 1,000 UNIT TAB PO SCH (07:41)
[2017-10-02] MEDS: PANTOPRAZOLE 40 MG/10 ML VIAL IVP SCH (07:42)
[2017-10-02] MEDS: CIPROFLOXACIN HCL 500 MG TAB PO SCH ×2 (07:42→20:18)
[2017-10-02] MEDS: FERROUS SULFATE 325 MG TAB PO SCH ×2 (07:42→20:18)
[2017-10-02] MEDS ORDERED: POTASSIUM CHLORIDE ER 20 MEQ TAB.ER PO STA (08:31)
[2017-10-02] MEDS: HEPARIN SODIUM,PORCINE 5,000 UNIT/ML 1 ML VIAL SQ SCH ×2 (09:25→20:18)
[2017-10-02] MEDS: SODIUM CHLORIDE 0.9% 1,000 ML IV STA (09:26)
[2017-10-02 11:59] LABS: Glucose,Whole Blood 221 mg/dL (75-99)
--- NOTE | 2017-10-02 13:29 | P.PN ---
Subjective Progress Note Date: 10/02/17 This is a 62-year-old female, patient of Dr. Peters. She has a known past medical history of kidney stones, diabetes mellitus, hypertension and rheumatoid arthritis. Patient presents to the emergency room with complaints of a possible UTI. She noticed some left lower quadrant and left upper back pain and had some burning with urination about 4 days ago. Initially her PCP had prescribed Bactrim outpatient. However, patient did not start taking it. She had increased symptoms of nausea and vomiting and was having chills and sweats. Patient felt feverish. She presented to the emergency room for further evaluation and treatment. She was found to have a temp of 102.9, tachycardic and a white count of 24.3. She was started on IV Rocephin and Levaquin. She had a computed tomography scan of the abdomen completed showing obstruction of the left upper collecting system at the left ureterovesical junction with calculus. Moderately severe perinephric edema. Urology has been consulted. Patient has undergone cystoscopy with placement of a left double-J catheter for her left hydronephrosis secondary to distal ureteral calculus. Patient reports improvement in her pain. She still having nausea. No evidence of stone. Her creatinine has climbed to 1.1 to the Motrin hydrochlorothiazide and metformin have been discontinued. She also received Toradol yesterday that has been discontinued. She is complaining of constipation reports her last bowel movement was about a week ago. Denies any chest pain or shortness of breath. The burning with urination has improved. White count is down to 20.8. Hemoglobin has also dropped from 10.8-10.1. Patient denies any hematuria. Iron studies have been ordered. 09/30/2017 she was hypotensive yesterday required fluid bolus. Blood pressures have remained on the lower side. BP this morning was 108/68. Patient was found to have a positive blood culture with gram-negative bacilli urine culture also growing gram-negative bacilli. She's currently on Levaquin. Infectious disease has been consulted. Patient's Norvasc and lisinopril were discontinued. White count has increased to 21.8. Patient was hypoglycemic this morning. She reports having a poor oral intake. Nauseated with no further episodes of vomiting. Reports having a bowel movement. Denies any burning with urination. Denies any blood in her urine. 10/01/2017 Patient currently sitting up in chair. Blood pressure 105/56. Blood Cultures positive for Proteus Mirabilis. WBC down to 17.9. Afebrile. ID following. Currently on zosyn and levoquin. Patient does complain of some SOB and requiring 2L of oxygen. Will decrease fluids down to 20ml/hr and give lasix 20mg. Denies chest Pain. Decrease nausea and no episodes of vomiting. Per Urology patient will be set up for ureterscopy with lithotripsy in approximately 2 weeks. 10/02/2017 Patient sitting up in chair feeling better today. Blood Pressure today 130/62. Second blood cultures currently have no growth. Per Dr. Campos patient was placed on oral Cipro last night but patient states that she got nauseated and sick to her stomach even when taken with food. Due to the intolerance to cipro patient will have to go home with midline and IV rocephen 2G daily for 12 days per ID. Awaiting on insurance coverage for Rocephen. Patient currently on room air and does not complain of any SOB of today. Denies chest pain. Patient will most likely be discharged home tomorrow once home antibiotics are arranged. Objective - Vital Signs Vital signs: Vital Signs Temp 98.1 F 10/02/17 06:07 Pulse 90 10/02/17 06:07 Resp 18 10/02/17 06:07 BP 130/62 10/02/17 06:07 Pulse Ox 98 10/02/17 07:41 Intake & Output 10/01/17 10/02/17 10/02/17 18:59 06:59 18:59 Intake Total 510 480 Balance 510 480 Weight 90.5 kg Intake: Intake, IV Titration 510 Amount Piperacillin-Tazobactam 3 50 .375 gm In Dextrose/Water 1 50ml.bag @ 12.5 mls/hr IVPB Q8HR MAR[facility] Rx#: [id number] Sodium Chloride 0.9% 1, 400 000 ml @ 100 mls/hr IV . Q10H MARITA Rx#:[id number] Sodium Chloride 0.9% 1, 60 000 ml @ 20 mls/hr IV . Q24H STA Rx#:[id number] Oral 480 Other: Voiding Method Toilet Toilet Toilet # Voids 3 2 - Exam Head normocephalic Neck supple Lungs clear to auscultation bilaterally no wheezing or crackles Heart regular rate and rhythm S1-S2, no rub or gallop Abdomen is soft and non-tender No flank tenderness nondistended positive bowel sounds no hepatosplenomegaly Extremities no edema Neuro alert and orientated to 3 - Labs CBC & Chem 7: 10/02/17 06:44 10/02/17 06:44 Labs: Abnormal Lab Results - Last 24 Hours (Table) 10/01/17 10/01/17 10/02/17 Range/Units 16:43 20:11 06:44 WBC 14.9 H (3.8-10.6) k/uL RBC 3.11 L (3.80-5.40) m/uL Hgb 9.2 L (11.4-16.0) gm/dL Hct 28.0 L (34.0-46.0) % RDW 16.6 H (11.5-15.5) % Neutrophils # 11.8 H (1.3-7.7) k/uL Monocytes # 1.1 H (0-1.0) k/uL Potassium (3.5-5.1) mmol/L Chloride (98-107) mmol/L Carbon Dioxide (22-30) mmol/L Glucose (74-99) mg/dL POC Glucose (mg/dL) 242 H 209 H (75-99) mg/dL Calcium (8.4-10.2) mg/dL Total Protein (6.3-8.2) g/dL Albumin (3.5-5.0) g/dL 10/02/17 10/02/17 10/02/17 Range/Units 06:44 07:14 11:57 WBC (3.8-10.6) k/uL RBC (3.80-5.40) m/uL Hgb (11.4-16.0) gm/dL Hct (34.0-46.0) % RDW (11.5-15.5) % Neutrophils # (1.3-7.7) k/uL Monocytes # (0-1.0) k/uL Potassium 3.3 L (3.5-5.1) mmol/L Chloride 111 H (98-107) mmol/L Carbon Dioxide 19 L (22-30) mmol/L Glucose 169 H (74-99) mg/dL POC Glucose (mg/dL) 155 H 221 H (75-99) mg/dL Calcium 8.3 L (8.4-10.2) mg/dL Total Protein 5.2 L (6.3-8.2) g/dL Albumin 2.7 L (3.5-5.0) g/dL Microbiology - Last 24 Hours (Table) 09/30/17 12:06 Blood Culture - Preliminary Blood No Growth after 24 hours Assessment and Plan Assessment: 1. Acute left pyelonephritis with evidence of sepsis present on admission. Patient received IV Levaquin and Zosyn. Blood cultures positive for Proteus Mirabilis. Heart heart was tachycardic but is now 80-90's. 2. Fluid overload: will decrease fluid to 20ml/hr and order 20mg lasix. Resolved. Patient currently on room air 3. Left hydronephrosis secondary to distal ureteral calculus status post cystoscopy and placement of left double-J catheter per urology. Per Urology patient will be set up for ureterscopy with lithotripsy in approximately 2 weeks. 4. Diabetes type 2: Patient's hyperglycemia has resolved. Patient is now hypoglycemic this morning. This is likely related to poor oral intake. At this time we'll decrease her Levemir from 40-35 units at bedtime. Discontinued the scheduled 5 units of NovoLog with each meal. And will just continue with the sliding scale. Metformin discontinued due to the increase in the creatinine. Blood sugars improved. A1C 10.3. 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 Acute kidney injury creatinine is 1.12. Discontinue hydrochlorothiazide and Motrin. Patient also received Toradol during this admission. Resolved Bun 15, Creat 0.85. 6. Metabolic acidosis present on admission CO2 was gone up from 18-20 7. Coagulopathy with an INR of 1.4. No evidence of bleeding. Patient is not on anticoagulation. Repeat INR is 1.2. INR 1.0. 8. Constipation : Resolved with Colace and lactulose 9. Essential hypertension: Patient has had some episodes of hypotension. Patient required fluid bolus. Discontinue Norvasc and lisinopril. Parameters have been placed around metoprolol to hold for systolic blood pressure less than 110 10. History of rheumatoid arthritis on methotrexate at home 11. Nausea and vomiting continue Zofran and will add IV Protonix likely related to patient's acute infection and kidney stones 12. Iron deficiency anemia: Hemoglobin 8.8. Total iron is 5. Add ferrous sulfate 325 mg twice a day 13. Bacteremia with blood culture growing gram-negative bacilli. urine is still likely source of infection. Blood Culture positive for Proteus Mirabilis. Infectious disease following. Second blood culture currently negative. Patient unable to tolerate oral Cipro due to nausea and vomiting. Per ID patient will require IV Rocephen 2G for 12 days, awaiting insurance coverage. Patient will need midline placement if she does go home on IV antibiotics. Anticipate Discharge tomorrow GI prophylaxis Protonix and SCDs for DVT prophylaxis heparin
--- NOTE | 2017-10-02 14:16 | PN ---
PROGRESS NOTE DATE OF SERVICE: 10/02/2017 REASON FOR FOLLOWUP: Proteus mirabilis bacteremia secondary to urinary source. INTERVAL HISTORY: The patient is afebrile. She is currently feeling slightly better. She was started on oral Cipro with the idea of discharging her home on oral Cipro. The patient states she did have gastric upset last night and this morning and she states she will not be able to take oral Cipro on the outpatient basis and requested to continue with IV antibiotic therapy infection. The patient denies having any chest pain. Left flank pain slightly improved. No nausea, no vomiting. No diarrhea. EXAMINATION: Blood pressure is 130/62 with a pulse of 90, temperature 98.1. She is 99% on 2 L nasal cannula. General description is a middle-aged female up in the bed in no distress. RESPIRATORY SYSTEM: Unlabored breathing, clear to auscultation anteriorly. HEART: S1, S2. Regular rate and rhythm. ABDOMEN: Soft, no tenderness. LABS: White count 14.9, BUN of 15 and creatinine 0.5. DIAGNOSTIC IMPRESSION AND PLAN: The patient with Proteus mirabilis bacteremia secondary to urinary source. We are planning to finish therapy with oral Cipro, however, the patient states she is unable to take it because of her gastric side effects even though sensitive pathogen may be because of bacteremia. Recommend continue the patient on IV Rocephin 2 g daily for another 12 days to finish a 2-week course of therapy. for the patient was arranged. should be placed. Continue supportive care. MMODL / IJN: [id number] /
[2017-10-02] MEDS: DOCUSATE 100 MG CAP PO SCH ×2 (15:51→20:22)
[2017-10-02 17:21] LABS: Glucose,Whole Blood 217 mg/dL (75-99)
[2017-10-02 20:17] LABS: Glucose,Whole Blood 268 mg/dL (75-99)
[2017-10-02] MEDS: ATENOLOL 12.5 MG TAB PO SCH (20:21)
[2017-10-02] MEDS: INSULIN DETEMIR 100 UNIT/ML 10 ML VIAL SQ SCH (21:03)
[2017-10-02 21:11] VITALS: RESP 18
[2017-10-03] MEDS: HYDROcodone/APAP 5-325MG 1 EACH TAB PO PRN ×4 (06:45→16:10)
[2017-10-03 07:09] LABS: Glucose,Whole Blood 95 mg/dL (75-99)
[2017-10-03] MEDS: INSULIN ASPART 100 UNIT/ML 1 ML 10 ML VIAL SQ SCH ×3 (07:20→17:58)
[2017-10-03 07:36] VITALS: BP 117/67; PULSE 84; TEMP 98.2
[2017-10-03 08:03] LABS: Anisocytosis Slight; Basophils # (A) 0.1 k/uL (0-0.2); Basophils % (A) 1 %; Eosinophils # (A) 0.3 k/uL (0-0.7); Eosinophils % (A) 2 %; HCT 27.4 % (34.0-46.0); HGB 8.9 gm/dL (11.4-16.0); Lymphocytes # (A) 1.4 k/uL (1.0-4.8); Lymphocytes % (A) 9 %; MCH 29.5 pg (25.0-35.0); MCHC 32.5 g/dL (31.0-37.0); MCV 90.5 fL (80.0-100.0); Mean Platelet Volume 6.3; Monocytes # (A) 1.3 k/uL (0-1.0); Monocytes % (A) 8 %; Neutrophils # (A) 12.3 k/uL (1.3-7.7); Neutrophils % (A) 77 %; Platelet Count 426 k/uL (150-450); RBC 3.02 m/uL (3.80-5.40); RDW 16.6 % (11.5-15.5); WBC 15.9 k/uL (3.8-10.6)
[2017-10-03 08:16] LABS: ALT 44 U/L (9-52); AST 18 U/L (14-36); Albumin 2.6 g/dL (3.5-5.0); Alkaline Phosphatase 88 U/L (38-126); Anion Gap 11 mmol/L; Blood Urea Nitrogen 14 mg/dL (7-17); Calcium 8.3 mg/dL (8.4-10.2); Carbon Dioxide 19 mmol/L (22-30); Chloride 110 mmol/L (98-107); Glucose 80 mg/dL (74-99); Potassium 3.8 mmol/L (3.5-5.1); Sodium 140 mmol/L (137-145); Total Bilirubin 0.2 mg/dL (0.2-1.3)
[2017-10-03] MEDS: CHOLECALCIFEROL 1,000 UNIT TAB PO SCH (08:19)
[2017-10-03] MEDS: FERROUS SULFATE 325 MG TAB PO SCH (08:19)
[2017-10-03] MEDS: CIPROFLOXACIN HCL 500 MG TAB PO SCH (08:19)
[2017-10-03] MEDS: DOCUSATE 100 MG CAP PO SCH (08:20)
[2017-10-03] MEDS: GEMFIBROZIL 600 MG TAB PO SCH (08:21)
[2017-10-03] MEDS: PANTOPRAZOLE 40 MG/10 ML VIAL IVP SCH (08:52)
[2017-10-03] MEDS: cefTRIAXone IN SWFI 2,000 MG/20 ML SYRINGE IVP SCH (09:50)
[2017-10-03] MEDS: HEPARIN SODIUM,PORCINE 5,000 UNIT/ML 1 ML VIAL SQ SCH (09:51)
[2017-10-03] MEDS: PANTOPRAZOLE 40 MG TABLET PO SCH ×2 (09:51→17:57)
[2017-10-03 11:09] LABS: Glucose,Whole Blood 152 mg/dL (75-99)
--- NOTE | 2017-10-03 11:12 | P.DS ---
Providers Date of admission: 09/28/17 16:38 Expected date of discharge: 10/03/17 Attending physician: Charles Gonzalez Consults: 09/28/17 16:44 Consult Physician Stat Consulting Provider: Spencer Walker Consult Reason/Comments: Kidney stone, hydronephrosis, UTI Do you want consulting provider notified?: Yes 09/30/17 08:31 Consult Physician Routine Consulting Provider: Zari Campos Consult Reason/Comments: bactermia, UTI Do you want consulting provider notified?: Yes Primary care physician: Farideh Kamara Hospital Course: Discharge diagnosis 1. Acute left pyelonephritis with evidence of sepsis and septic shock present on admission. Patient will complete treatment with Rocephin 2 g IV daily 12 days 2. Fluid overload: Improved with IV Lasix 3. Left hydronephrosis secondary to distal ureteral calculus status post cystoscopy and placement of left double-J catheter per urology. Per Urology patient will be set up for ureterscopy with lithotripsy in approximately 2 weeks. Patient again is having left flank pain. Urology notified. They've added to Ditropan 5 mg 3 times a day and the recommending that she follows up the office. 4. Diabetes type 2: With episodes of hypoglycemia and hyperglycemia. Further adjustments to her insulin with Levemir will be decreased to 32 units at bedtime and will continue with a sliding scale coverage. She'll receive a form with the hospital sliding scale. A1C 10.3. 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 Acute kidney injury creatinine is 1.12. Discontinue hydrochlorothiazide and Motrin. Patient also received Toradol during this admission. Resolved Bun 15, Creat 0.85. 6. Metabolic acidosis present on admission CO2 was gone up from 18-20 7. Coagulopathy with an INR of 1.4. No evidence of bleeding. Patient is not on anticoagulation. Repeat INR is INR 1.0. 8. Constipation : Resolved with Colace and lactulose 9. Essential hypertension: Patient had episodes of hypotension requiring IV fluids. Blood pressures have improved. However the remain on the lower side. We will continue only the atenolol 12.5 mg daily. Norvasc and the benazepril/ hydrochlorothiazide discontinued during this admission 10. History of rheumatoid arthritis on methotrexate at home 11. Nausea and vomiting likely related to patient's acute infection and kidney stones. Symptoms improved 12. Iron deficiency anemia: Hemoglobin 8.9. Total iron is 5. Add ferrous sulfate 325 mg twice a day 13. Bacteremia urine is likely source of infection. Blood Culture positive for Proteus Mirabilis. Infectious disease following. Second blood culture currently negative. Patient unable to tolerate oral Cipro due to nausea and vomiting. Per ID patient will require IV Rocephen 2G for 12 days. Hospital course This is a 62-year-old female, patient of Dr. Peters. She has a known past medical history of kidney stones, diabetes mellitus, hypertension and rheumatoid arthritis. Patient presents to the emergency room with complaints of a possible UTI. She noticed some left lower quadrant and left upper back pain and had some burning with urination about 4 days ago. Initially her PCP had prescribed Bactrim outpatient. However, patient did not start taking it. She had increased symptoms of nausea and vomiting and was having chills and sweats. Patient felt feverish. She presented to the emergency room for further evaluation and treatment. She was found to have a temp of 102.9, tachycardic and a white count of 24.3. She was started on IV Rocephin and Levaquin. She had a computed tomography scan of the abdomen completed showing obstruction of the left upper collecting system at the left ureterovesical junction with calculus. Moderately severe perinephric edema. Urology has been consulted. Patient has undergone cystoscopy with placement of a left double-J catheter for her left hydronephrosis secondary to distal ureteral calculus. Patient reports improvement in her pain. She still having nausea. No evidence of stone. Her creatinine has climbed to 1.1 to the Motrin hydrochlorothiazide and metformin have been discontinued. She also received Toradol yesterday that has been discontinued. She is complaining of constipation reports her last bowel movement was about a week ago. Denies any chest pain or shortness of breath. The burning with urination has improved. White count is down to 20.8. Hemoglobin has also dropped from 10.8-10.1. Patient denies any hematuria. Iron studies have been ordered. 09/30/2017 she was hypotensive yesterday required fluid bolus. Blood pressures have remained on the lower side. BP this morning was 108/68. Patient was found to have a positive blood culture with gram-negative bacilli urine culture also growing gram-negative bacilli. She's currently on Levaquin. Infectious disease has been consulted. Patient's Norvasc and lisinopril were discontinued. White count has increased to 21.8. Patient was hypoglycemic this morning. She reports having a poor oral intake. Nauseated with no further episodes of vomiting. Reports having a bowel movement. Denies any burning with urination. Denies any blood in her urine. 10/01/2017 Patient currently sitting up in chair. Blood pressure 105/56. Blood Cultures positive for Proteus Mirabilis. WBC down to 17.9. Afebrile. ID following. Currently on zosyn and levoquin. Patient does complain of some SOB and requiring 2L of oxygen. Will decrease fluids down to 20ml/hr and give lasix 20mg. Denies chest Pain. Decrease nausea and no episodes of vomiting. Per Urology patient will be set up for ureterscopy with lithotripsy in approximately 2 weeks. 10/02/2017 Patient sitting up in chair feeling better today. Blood Pressure today 130/62. Second blood cultures currently have no growth. Per Dr. Campos patient was placed on oral Cipro last night but patient states that she got nauseated and sick to her stomach even when taken with food. Due to the intolerance to cipro patient will have to go home with midline and IV rocephen 2G daily for 12 days per ID. Awaiting on insurance coverage for Rocephen. Patient currently on room air and does not complain of any SOB of today. Denies chest pain. Patient will most likely be discharged home tomorrow once home antibiotics are arranged. Patient had midline placed for IV Rocephin for 12 more days to complete treatment for her bacteremia and pyelonephritis. Blood culture and urine culture had grown Proteus mirabilis. Likely source of infection is urinary. Patient seen by infectious disease. Patient on off able to tolerate Cipro. Therefore infectious diseases recommending patient to continue Rocephin for 12 more days. Patient seen by urology during this admission regarding the kidney stones and distal ureteral calculus. Patient had undergone cystoscopy with left double-J catheter placed. Urology has added Ditropan during this admission. She'll need to complete antibiotic treatment. And she'll follow-up with urology outpatient for ureteroscopy with lithotripsy. Patient's pain is controlled with the Valentine. White count is elevated at discharge at 15.9. And she'll continue IV antibiotics via midline through home care. And will have her follow-up with infectious disease as outpatient. We'll check CBC in 1 week. Also evidence of iron deficiency anemia during this hospitalization patient started on iron supplement. Patient was hypotensive again likely related to her sepsis and infection. During her hospitalization blood pressures have improved with IV fluids. And the Norvasc and denies a process like hydrochlorothiazide discontinued during this admission. She's also had fluctuating blood sugars with episodes of hypoglycemia and hyperglycemia. Insulin doses have been adjusted as stated above. Recommend that patient requires both her blood sugars and blood pressures and will have her follow-up with PCP on Friday for further adjustment in medications. Patient also will be following up with the dietitian for further recommendations in a diabetic diet. Patient has been cleared by consulting physicians. She is medically stable for discharge. Please refer to chart for any further details. I performed an examination of the patient and discussed their management with the physician Graduate Civil Engineer. I have reviewed the Physician Graduate Civil Engineer's notes and agree with the documented findings and plan of care Patient Condition at Discharge: Stable Plan - Discharge Summary Discharge Rx Participant: No New Discharge Prescriptions: New cefTRIAXone [Rocephin] 2,000 mg IVP Q24HR #12 syringe Ferrous Sulfate [Iron (65 MG Elemental)] 325 mg PO BID #60 tab HYDROcodone/APAP 5-325MG [Valentine 5-325] 1 each PO Q4HR PRN #18 tab PRN Reason: Moderate Pain Insulin Aspart [NovoLOG (formulary)] 0 unit SQ ACHS vial Oxybutynin Chloride [Ditropan] 5 mg PO TID #21 tab Continue Gemfibrozil [Lopid] 600 mg PO AC-BID Devers-3 Fatty Acids/Fish Oil [Fish Oil 1,000 mg Softgel] 1 cap PO DAILY Atenolol [Tenormin] 12.5 mg PO DAILY metFORMIN HCL [Glucophage] 1,000 mg PO BID Methotrexate 50mg/2ml 25 mg SQ WANG EPINEPHrine (Auto Inject) [Epipen] 0.3 mg IM ONCE PRN #2 syringe PRN Reason: Difficulty breathing Cholecalciferol (Vitamin D3) [Vitamin D3] 2,000 unit PO DAILY Changed Insulin Glargine,Hum.rec.anlog [Lantus Solostar] 32 unit SQ HS #0 Discontinued amLODIPine [Norvasc] 5 mg PO DAILY Benazepril/Hydrochlorothiazide [Benazepril-Hctz 20-12.5 mg Tab] 1 tab PO DAILY Ibuprofen [Motrin] 800 mg PO TID PRN PRN Reason: Pain Insulin Lispro [humaLOG Kwikpen] 5 unit SQ AC-TID HYDROcodone/APAP 10-325MG [Valentine 10-325] 0.5 tab PO Q8HR PRN PRN Reason: Pain Discharge Medication List Atenolol [Tenormin] 12.5 mg PO DAILY 12/10/16 [History] EPINEPHrine (Auto Inject) [Epipen] 0.3 mg IM ONCE PRN #2 syringe 12/10/16 [Rx] Gemfibrozil [Lopid] 600 mg PO AC-BID 12/10/16 [History] Methotrexate 50mg/2ml 25 mg SQ WANG 12/10/16 [History] Devers-3 Fatty Acids/Fish Oil [Fish Oil 1,000 mg Softgel] 1 cap PO DAILY [History] metFORMIN HCL [Glucophage] 1,000 mg PO BID 12/10/16 [History] Cholecalciferol (Vitamin D3) [Vitamin D3] 2,000 unit PO DAILY 09/28/17 [History] Ferrous Sulfate [Iron (65 MG Elemental)] 325 mg PO BID #60 tab 10/03/17 [Rx] HYDROcodone/APAP 5-325MG [Valentine 5-325] 1 each PO Q4HR PRN #18 tab 10/03/17 [Rx] Insulin Aspart [NovoLOG (formulary)] 0 unit SQ ACHS vial 10/03/17 [Rx] Insulin Glargine,Hum.rec.anlog [Lantus Solostar] 32 unit SQ HS #0 10/03/17 [Rx] Oxybutynin Chloride [Ditropan] 5 mg PO TID #21 tab 10/03/17 [Rx] cefTRIAXone [Rocephin] 2,000 mg IVP Q24HR #12 syringe 10/03/17 [Rx] Follow up Appointment(s)/Referral(s): [facility], [NON-STAFF] - 1 Week Spencer Walker MD [STAFF PHYSICIAN] - 10 Days [facility], [REFERRING] - 1 Week Farideh Kamara MD [Primary Care Provider] - 3 Days Zari Campos MD [STAFF PHYSICIAN] - 1 Week Activity/Diet/Wound Care/Special Instructions: Diet: diabetic, cardiac Activity: as tolerated Patient is to follow-up outpatient with the dietitian regarding her diabetes Check CBC in 1 week Patient is to monitor her blood sugars and blood pressure at home and record. Follow-up to PCP on Friday for further adjustments. Discharge Disposition: HOME WITH HOME HEALTH SERVICES
[2017-10-03] MEDS: OXYBUTYNIN CHLORIDE 5 MG TAB PO SCH ×2 (11:25→16:11)
--- NOTE | 2017-10-03 14:11 | PN ---
PROGRESS NOTE DATE OF SERVICE: 10/03/2017 REASON FOR FOLLOWUP: Proteus mirabilis bacteremia secondary to urinary source. INTERVAL HISTORY: The patient is currently afebrile. She is complaining of slight pain in the left flank area, no worsening though. No chest pain. No shortness of breath or cough. No abdominal pain or any diarrhea. The patient did get a Midline for outpatient IV Rocephin. PHYSICAL EXAMINATION: On examination, her blood pressure is 117/67 with a pulse of 84, temperature 98.2. She is 94% on room air. General description is a middle-aged female lying in bed in no distress. RESPIRATORY SYSTEM: Unlabored breathing, clear to auscultation anteriorly. HEART: S1, S2. Regular rate and rhythm. ABDOMEN: Soft, no tenderness. LABS: White count slight elevated at 15.9 today with a BUN of 14, creatinine 0.75. DIAGNOSTIC IMPRESSION AND PLAN: Patient with Proteus mirabilis bacteremia secondary to urinary source in that the patient do have complicated urinary tract infection with left-sided hydronephrosis, status post double J catheter placement. The patient was unable to tolerate the oral Cipro; hence, she got a Midline for outpatient IV Rocephin that will be continued for another 12 days with close outpatient followup. All questions were answered. MMODL / IJN: [id number] /
[2017-10-03 17:10] LABS: Glucose,Whole Blood 160 mg/dL (75-99)
== END 2017-10-03 18:10 | disposition home health service (06) | DRG 871 ==
LOC: EC 14:47 → 5MS5E 16:38 → 5ONC 09-29 08:03
PROVIDERS: ADMIT Internal Medicine; ATTEND Internal Medicine
PROC: 0T778DZ Dilation of Left Ureter with Intraluminal Device, Via Natural or Artificial Opening Endoscopic (ICD-10-PCS; principal; 2017-09-28 20:55)
DX: A41.59 Other Gram-negative sepsis (principal); R65.21 Severe sepsis with septic shock; N13.6 Pyonephrosis; N17.9 Acute kidney failure, unspecified; E87.2 Acidosis; J81.1 Chronic pulmonary edema; D68.9 Coagulation defect, unspecified; J98.11 Atelectasis; E11.649 Type 2 diabetes mellitus with hypoglycemia without coma; E11.65 Type 2 diabetes mellitus with hyperglycemia; E87.70 Fluid overload, unspecified; D50.9 Iron deficiency anemia, unspecified; M06.9 Rheumatoid arthritis, unspecified; I10 Essential (primary) hypertension; K59.00 Constipation, unspecified; Z79.4 Long term (current) use of insulin; Z79.899 Other long term (current) drug therapy; Z79.84 Long term (current) use of oral hypoglycemic drugs; Z88.2 Allergy status to sulfonamides; Z91.030 Bee allergy status; Z87.891 Personal history of nicotine dependence; Z87.442 Personal history of urinary calculi
CPT/HCPCS: 36415; 36569; 71046; 74177; 76937; 80053; 80306; 81001; 82728; 83036; 83540; 83550; 83605; 85025; 85610; 85730; 87040; 87077; 87086; 87186; 93005; 94760; 96361; 96374; 96375; 99285

== ENCOUNTER 2017-10-04 12:49 | Inpatient (IN) | payer MEDICARE, BC ==
--- NOTE | 2017-10-04 14:18 | ED ---
Recheck HPI - General Chief Complaint: Recheck/Abnormal Lab/Rx Stated Complaint: Midline Clogged Time Seen by Provider: 10/04/17 13:21 Source: patient, RN notes reviewed, old records reviewed Mode of arrival: ambulatory Limitations: no limitations - History of Present Illness Initial Comments: Patient is a 62-year-old female that was recently admitted for left pyelonephritis with abscess. She was discharged yesterday and prior to discharge a midline was placed in left forearm. Patient was seen by her home health care nurse today and when the home health care nurse attempted to flush the midline there was resistance. Patient reports pain in the left forearm. Patient reports that she is supposed receive Rocephin and heparin. She did take her medications has not ate or drank since being in the emergency department today. Patient states that she hasn't been afebrile and doesn't complain of any significant pain at this time. - Related Data Home Medications Medication Instructions Recorded Confirmed Atenolol [Tenormin] 12.5 mg PO DAILY 12/10/16 09/28/17 Gemfibrozil [Lopid] 600 mg PO AC-BID 12/10/16 09/28/17 Methotrexate 50mg/2ml 25 mg SQ WANG 12/10/16 09/28/17 [place]-3 Fatty Acids/Fish Oil [Fish 1 cap PO DAILY 12/10/16 09/28/17 Oil 1,000 mg Softgel] metFORMIN HCL [Glucophage] 1,000 mg PO BID 12/10/16 09/28/17 Cholecalciferol (Vitamin D3) 2,000 unit PO DAILY 09/28/17 09/28/17 [Vitamin D3] Previous Rx's Medication Instructions Recorded EPINEPHrine (Auto Inject) [Epipen] 0.3 mg IM ONCE PRN #2 syringe 12/10/16 Ferrous Sulfate [Iron (65 MG 325 mg PO BID #60 tab 10/03/17 Elemental)] HYDROcodone/APAP 5-325MG [Glide 1 each PO Q4HR PRN #18 tab 10/03/17 5-325] Insulin Aspart [NovoLOG 0 unit SQ ACHS vial 10/03/17 (formulary)] Insulin Glargine,Hum.rec.anlog 32 unit SQ HS #0 10/03/17 [Lantus Solostar] Oxybutynin Chloride [Ditropan] 5 mg PO TID #21 tab 10/03/17 cefTRIAXone [Rocephin] 2,000 mg IVP Q24HR #12 syringe 10/03/17 Allergies Allergy/AdvReac Type Severity Reaction Status Date / Time bee venom protein (honey bee) Allergy Rash/Hives Verified 10/04/17 13:28 Sulfa (Sulfonamide Allergy Unknown Verified 10/04/17 13:28 Antibiotics) Review of Systems ROS Statement: Those systems with pertinent positive or pertinent negative responses have been documented in the HPI. ROS Other: All systems not noted in ROS Statement are negative. Past Medical History Past Medical History: Diabetes Mellitus, Hypertension, Rheumatoid Arthritis (RA) Additional Past Medical History / Comment(s): neuropathy, scoliosis History of Any Multi-Drug Resistant Organisms: None Reported Past Surgical History: Breast Surgery Additional Past Surgical History / Comment(s): diagnostic laparoscopy, renal stent Past Anesthesia/Blood Transfusion Reactions: No Reported Reaction Past Psychological History: No Psychological Hx Reported Smoking Status: Former smoker Past Alcohol Use History: None Reported Past Drug Use History: None Reported General Exam - General Exam Comments Initial Comments: 62-year-old female. Alert and oriented. No significant distress. General: Well appearing, well nourished, in no distress. Oriented x 3, normal mood and affect . Ambulating without difficulty. Skin: Good turgor, no rash, unusual bruising or prominent lesions Hair: Normal texture and distribution. HEENT: Head: Normocephalic, atraumatic, no visible or palpable masses, depressions, or scaring. Eyes: Visual acuity intact, conjunctiva clear, sclera non-icteric, EOM intact, PERRL. Ears: EACs clear, TMs translucent & cone of light visualized. hearing intact. Nose: No external lesions, mucosa non-inflamed, septum and turbinates normal Mouth: Mucous membranes moist, no mucosal lesions. Teeth/Gums: No obvious caries or periodontal disease. No gingival inflammation or significant resorption. Pharynx: Mucosa non-inflamed, no tonsillar hypertrophy or exudate Neck: Supple, without lesions, bruits, or adenopathy, thyroid non-enlarged and non-tender Heart: No cardiomegaly or thrills; regular rate and rhythm, no murmur or gallop Lungs: Clear to auscultation and percussion Abdomen: Bowel sounds normal, no tenderness, organomegaly, masses, or hernia Back: Spine normal without deformity or tenderness, no CVA tendernRectal: Normal sphincter tone, no hemorrhoids or masses palpable Extremities: Left forearm has evidence of midline. The main is very firm and hard and swollen. Unable to be flushed. Ultrasound was performed concern for possibility of a clot at the end of the catheter. Musculoskeletal: Normal gait and station. No misalignment, asymmetry, crepitation, defects, tenderness, masses, effusions, decreased range of motion, instability, atrophy or abnormal strength or tone in the head, neck, spine, ribs , pelvis or extremities. Neurologic: CN 2-12 normal. Sensation to pain, touch, and proprioception normal. DTRs normal in upper and lower extremities. No pathologic reflexes. Psychiatric: Oriented X3, intact recent and remote memory, judgment and insight , normal mood and affect. Limitations: no limitations Course Vital Signs 10/04/17 10/04/17 13:20 17:02 Temperature 98.8 F Pulse Rate 103 H 106 H Respiratory 18 18 Rate Blood Pressure 154/75 140/69 O2 Sat by Pulse 98 100 Oximetry Medical Decision Making - Medical Decision Making This patient's a 62-year-old female presents emergency Department chief complaint of unable to flush her midline catheter. She is recently treated for sepsis for pyelonephritis. She was sent home with a midline yesterday. Her visiting nurse he was unable to flush it. There is evidence of a superficial vein this thrombosis related to the midline access. We did multiple times to try to contact the nurses who could access this however they are not on-call over the weekend. The other option was to admit the Patient with a peripheral IV and give her the dose of Rocephin that she needed today. This was completed. I did check a white blood cell count is elevated 15,000. This was similar to yesterday. Patient was given saline bolus. I discussed the case with Dr. Gonzalez. He discussed this with Dr. Gonzalez. Patient was admitted for IV hydration and repeat antibiotics to the peripheral IV. We did pull the midline access. Patient may need to have midline accessory completed on Friday when the nurses are available. - Lab Data Result diagrams: 10/04/17 15:35 10/04/17 15:35 Lab Results 10/04/17 10/04/17 10/04/17 Range/Units 15:35 15:35 15:35 WBC 15.4 H (3.8-10.6) k/uL RBC 3.19 L (3.80-5.40) m/uL Hgb 9.2 L (11.4-16.0) gm/dL Hct 28.2 L (34.0-46.0) % MCV 88.4 (80.0-100.0) fL MCH 29.0 (25.0-35.0) pg MCHC 32.8 (31.0-37.0) g/dL RDW 15.8 H (11.5-15.5) % Plt Count 504 H (150-450) k/uL Neutrophils % 76 % Lymphocytes % 12 % Monocytes % 8 % Eosinophils % 2 % Basophils % 0 % Neutrophils # 11.7 H (1.3-7.7) k/uL Lymphocytes # 1.8 (1.0-4.8) k/uL Monocytes # 1.2 H (0-1.0) k/uL Eosinophils # 0.4 (0-0.7) k/uL Basophils # 0.1 (0-0.2) k/uL PT 10.1 (9.0-12.0) sec INR 1.0 (<1.2) APTT 24.4 (22.0-30.0) sec Sodium 139 (137-145) mmol/L Potassium 4.0 (3.5-5.1) mmol/L Chloride 108 H (98-107) mmol/L Carbon Dioxide 21 L (22-30) mmol/L Anion Gap 10 mmol/L BUN 12 (7-17) mg/dL Creatinine 0.70 (0.52-1.04) mg/dL Est GFR (CKD-EPI)AfAm >90 (>60 ml/min/1.73 sqM) Est GFR (CKD-EPI)NonAf >90 (>60 ml/min/1.73 sqM) Glucose 159 H (74-99) mg/dL Calcium 8.6 (8.4-10.2) mg/dL Total Bilirubin 0.2 (0.2-1.3) mg/dL AST 16 (14-36) U/L ALT 39 (9-52) U/L Alkaline Phosphatase 85 (38-126) U/L Total Protein 5.5 L (6.3-8.2) g/dL Albumin 2.9 L (3.5-5.0) g/dL Disposition Clinical Impression: Superficial venous thrombosis of arm, Failure of outpatient treatment, History of sepsis, UTI (urinary tract infection) Disposition: ADMITTED IP TO THIS HOSP Condition: Stable Is patient prescribed a controlled substance at d/c from ED?: No When asked, does pt state using other controlled substances?: No If prescribed controlled substance>3 days was MAPS reviewed?: No If opioid is for acute pain is fill amount 7 days or less?: No If Rx opioid, was Start Talking consent form obtained?: No Referrals: Erica Lang MD [Primary Care Provider] - 1-2 days Time of Disposition: 17:21
[2017-10-04] MEDS ORDERED: SODIUM CHLORIDE 0.9% 1,000 ML IV ONE (14:47)
[2017-10-04] MEDS ORDERED: cefTRIAXone IN SWFI 2,000 MG/20 ML SYRINGE IVP STA (14:47)
[2017-10-04 16:12] LABS: Basophils # (A) 0.1 k/uL (0-0.2); Basophils % (A) 0 %; Eosinophils # (A) 0.4 k/uL (0-0.7); Eosinophils % (A) 2 %; HCT 28.2 % (34.0-46.0); HGB 9.2 gm/dL (11.4-16.0); Lymphocytes # (A) 1.8 k/uL (1.0-4.8); Lymphocytes % (A) 12 %; MCHC 32.8 g/dL (31.0-37.0); MCV 88.4 fL (80.0-100.0); Monocytes # (A) 1.2 k/uL (0-1.0); Monocytes % (A) 8 %; Neutrophils # (A) 11.7 k/uL (1.3-7.7); Neutrophils % (A) 76 %; Platelet Count 504 k/uL (150-450); RBC 3.19 m/uL (3.80-5.40); RDW 15.8 % (11.5-15.5); WBC 15.4 k/uL (3.8-10.6)
[2017-10-04 16:35] LABS: ALT 39 U/L (9-52); AST 16 U/L (14-36); Albumin 2.9 g/dL (3.5-5.0); Alkaline Phosphatase 85 U/L (38-126); Anion Gap 10 mmol/L; Blood Urea Nitrogen 12 mg/dL (7-17); Calcium 8.6 mg/dL (8.4-10.2); Carbon Dioxide 21 mmol/L (22-30); Chloride 108 mmol/L (98-107); Glucose 159 mg/dL (74-99); Sodium 139 mmol/L (137-145); Total Bilirubin 0.2 mg/dL (0.2-1.3); Total Protein 5.5 g/dL (6.3-8.2)
[2017-10-04 16:43] LABS: Partial Thromboplastin Time 24.4 sec (22.0-30.0); Prothrombin Time 10.1 sec (9.0-12.0)
--- NOTE | 2017-10-04 17:12 | US ---
EXAMINATION TYPE: US venous doppler duplex UE LT DATE OF EXAM: 10/04/2017 COMPARISON: NONE CLINICAL HISTORY: 62-year-old female Pain. Midline placed yesterday in left arm and won't flush. SIDE PERFORMED: Left TECHNIQUE: Grayscale, color doppler, spectral doppler imaging performed of the deep veins of the left upper extremity. Findings: Left Arm: Negative for DVT. Superior to Midline access, internal echoes and noncompressible superf icial vein, no vascular flow seen. Vein is anterior to brachial veins. IMPRESSION: 1. Midline venous access identified entering a superficial vein anterior to the brachial veins. The e xam is positive for SVT involving this vein. 2. No evidence for left upper extremity DVT.
[2017-10-04] MEDS ORDERED: ACETAMINOPHEN TAB 325 MG TAB PO PRN (17:22)
[2017-10-04] MEDS ORDERED: KETOROLAC 30 MG/ML 1 ML VIAL IVP PRN (17:22)
[2017-10-04] MEDS ORDERED: NALOXONE 0.4 MG/ML 1 ML VIAL IV PRN (17:22)
[2017-10-04] MEDS ORDERED: LORazepam 2 MG/ML INJ IV PRN (17:22)
[2017-10-04] MEDS ORDERED: IBUPROFEN 400 MG TAB PO PRN (17:22)
[2017-10-04] MEDS ORDERED: NON-FORMULARY DRUG (Epinephrine (Auto Inject) 0.3 MG) IM PRN (17:31)
[2017-10-04] MEDS: GEMFIBROZIL 600 MG TAB PO SCH (17:56)
[2017-10-04] MEDS: OXYBUTYNIN CHLORIDE 5 MG TAB PO SCH ×2 (17:56→21:49)
[2017-10-04] MEDS: SODIUM CHLORIDE 0.9% 1,000 ML IV SCH (17:57)
[2017-10-04 20:53] LABS: Glucose,Whole Blood 242 mg/dL (75-99)
[2017-10-04] MEDS: FERROUS SULFATE 325 MG TAB PO SCH (21:49)
[2017-10-04] MEDS: metFORMIN 500 MG TAB PO SCH (21:49)
[2017-10-04] MEDS: INSULIN DETEMIR 100 UNIT/ML 10 ML VIAL SQ SCH (21:49)
[2017-10-04] MEDS: oxyCODONE-APAP 5-325MG 1 EACH TAB PO PRN (21:50)
[2017-10-04] MEDS: HEPARIN SODIUM,PORCINE 5,000 UNIT/ML 1 ML VIAL SQ SCH (23:44)
[2017-10-05] MEDS: SODIUM CHLORIDE 0.9% 1,000 ML IV SCH (02:13)
[2017-10-05] MEDS: ONDANSETRON 4 MG/2 ML VIAL IVP PRN (02:44)
[2017-10-05 03:02] LABS: Appearance,Urine Clear (Clear); Bacteria,Urine Rare /hpf; Bilirubin,Urine Negative (Negative); Blood,Urine Trace (Negative); Color,Urine Light Yellow; Glucose,Urine (UA) 3+ (Negative); Ketones,Urine Negative (Negative); Leukocyte Esterase,Urine Small (Negative); Mucus,Urine Rare /hpf; Nitrite,Urine Negative (Negative); Protein,Urine Trace (Negative); RBC,Urine 2 /hpf (0-5); Specific Gravity,Urine 1.009 (1.001-1.035); Squamous Epithelial Cell,Urine 3 /hpf (0-4); Urobilinogen,Urine <2.0 mg/dL (<2.0); WBC,Urine 7 /hpf (0-5)
[2017-10-05 07:27] LABS: Glucose,Whole Blood 73 mg/dL (75-99)
[2017-10-05] MEDS: metFORMIN 500 MG TAB PO SCH ×2 (08:25→21:29)
[2017-10-05] MEDS: cefTRIAXone IN SWFI 2,000 MG/20 ML SYRINGE IVP SCH (08:26)
[2017-10-05] MEDS: CHOLECALCIFEROL 1,000 UNIT TAB PO SCH (08:26)
[2017-10-05] MEDS: OXYBUTYNIN CHLORIDE 5 MG TAB PO SCH ×3 (08:26→21:29)
[2017-10-05] MEDS: PANTOPRAZOLE 40 MG/10 ML VIAL IV SCH (08:26)
[2017-10-05] MEDS: HEPARIN SODIUM,PORCINE 5,000 UNIT/ML 1 ML VIAL SQ SCH ×3 (08:26→22:30)
[2017-10-05] MEDS: GEMFIBROZIL 600 MG TAB PO SCH ×2 (08:26→16:32)
[2017-10-05] MEDS: FERROUS SULFATE 325 MG TAB PO SCH ×2 (08:27→21:29)
[2017-10-05] MEDS: oxyCODONE-APAP 5-325MG 1 EACH TAB PO PRN ×4 (08:39→22:31)
[2017-10-05] MEDS ORDERED: NON-FORMULARY DRUG (Omega-3 Fatty Acids/Fish Oil [Fish Oil 1,000 Mg Softgel] 1 CAP) PO SCH (09:00)
[2017-10-05] MEDS ORDERED: ATENOLOL 12.5 MG TAB PO SCH (09:00)
--- NOTE | 2017-10-05 10:14 | P.HPIM ---
History of Present Illness H&P Date: 10/05/17 Chief Complaint: Lost IV access This is a 62-year-old female with past medical history noted below who was discharged from the hospital 2 days ago after being treated for urosepsis and underwent cystoscopy with lithotripsy and double-J catheter placement to the left ureter. Patient was doing fairly well. She was discharged home on antibiotic with IV ceftriaxone secondary to bacteremia noted during last admission. She was getting antibiotics through a midline in the superficial vein in the left forearm. Yesterday her visiting nurse came in and the IV has infiltrated. She was sent to the emergency room for evaluation. She underwent ultrasound in the emergency room showing superficial phlebitis. She is currently admitted to the hospital to continue her IV antibiotic. She is doing fairly well otherwise. Patient does not have any concerns or complaints. Review of Systems Review of system: 14 points review of systems were obtained and were negative except to what were mentioned in the HPI. Past Medical History Past Medical History: Diabetes Mellitus, Hypertension, Rheumatoid Arthritis (RA) Additional Past Medical History / Comment(s): neuropathy, scoliosis, kidney stones History of Any Multi-Drug Resistant Organisms: None Reported Past Surgical History: Breast Surgery Additional Past Surgical History / Comment(s): diagnostic laparoscopy, renal stent Past Anesthesia/Blood Transfusion Reactions: No Reported Reaction Past Psychological History: No Psychological Hx Reported Smoking Status: Former smoker Past Alcohol Use History: None Reported Past Drug Use History: None Reported Medications and Allergies Home Medications Medication Instructions Recorded Confirmed Type Atenolol [Tenormin] 12.5 mg PO DAILY 12/10/16 10/04/17 History EPINEPHrine (Auto Inject) [Epipen] 0.3 mg IM ONCE PRN #2 syringe 12/10/16 Rx Gemfibrozil [Lopid] 600 mg PO DAILY 12/10/16 10/04/17 History [place]-3 Fatty Acids/Fish Oil [Fish 1 cap PO DAILY 12/10/16 10/04/17 History Oil 1,000 mg Softgel] metFORMIN HCL [Glucophage] 1,000 mg PO BID 12/10/16 10/04/17 History Cholecalciferol (Vitamin D3) 2,000 unit PO DAILY 09/28/17 10/04/17 History [Vitamin D3] Ferrous Sulfate [Iron (65 MG 325 mg PO BID #60 tab 10/03/17 10/04/17 Rx Elemental)] Insulin Aspart [NovoLOG 0 unit SQ ACHS vial 10/03/17 10/04/17 Rx (formulary)] Insulin Glargine,Hum.rec.anlog 32 unit SQ HS #0 10/03/17 10/04/17 Rx [Lantus Solostar] Oxybutynin Chloride [Ditropan] 5 mg PO TID #21 tab 10/03/17 10/04/17 Rx cefTRIAXone [Rocephin] 2,000 mg IVP Q24HR #12 syringe 10/03/17 10/04/17 Rx HYDROcodone/APAP 5-325MG [Petal 1 tab PO Q4HR PRN 10/04/17 10/04/17 History 5-325] Allergies Allergy/AdvReac Type Severity Reaction Status Date / Time bee venom protein (honey bee) Allergy Rash/Hives Verified 10/04/17 17:58 Sulfa (Sulfonamide Allergy Unknown Verified 10/04/17 17:58 Antibiotics) Physical Exam Vitals: Vital Signs Temp Pulse Pulse Resp BP BP Pulse Ox 10/05/17 05:50 97.1 F L 102 H 18 146/73 96 10/04/17 23:00 98.8 F 93 16 133/78 95 10/04/17 20:28 99.9 F H 10/04/17 18:40 99.2 F 98 18 128/69 97 10/04/17 18:31 98.8 F 106 H 18 140/69 100 10/04/17 17:45 98.8 F 106 H 18 140/69 100 10/04/17 17:02 106 H 18 140/69 100 10/04/17 13:20 98.8 F 103 H 18 154/75 98 Intake and Output 10/04/17 10/05/17 10/05/17 22:59 06:59 14:59 Intake Total 1000 Balance 1000 Intake: Amount of Fluid Infused ( 1000 ml) Other: # Voids 2 3 General: The patient is awake and alert, in no distress Eye: there is normal conjunctiva bilaterally. Neck: The neck is supple, there is no JVD. Cardiovascular: Normal S1-S2, no S3-S4, no murmurs. Respiratory: Lungs clear to auscultation bilaterally Gastrointestinal: Abdomen is soft, nontender Musculoskeletal: There is no pedal edema. Neurological:. Speech is normal. Skin: Skin is warm and dry Results CBC & Chem 7: 10/04/17 15:35 10/04/17 15:35 Labs: Abnormal Lab Results - Last 24 Hours (Table) 10/04/17 10/04/17 10/04/17 Range/Units 15:35 15:35 20:25 WBC 15.4 H (3.8-10.6) k/uL RBC 3.19 L (3.80-5.40) m/uL Hgb 9.2 L (11.4-16.0) gm/dL Hct 28.2 L (34.0-46.0) % RDW 15.8 H (11.5-15.5) % Plt Count 504 H (150-450) k/uL Neutrophils # 11.7 H (1.3-7.7) k/uL Monocytes # 1.2 H (0-1.0) k/uL Chloride 108 H (98-107) mmol/L Carbon Dioxide 21 L (22-30) mmol/L Glucose 159 H (74-99) mg/dL POC Glucose (mg/dL) (75-99) mg/dL Total Protein 5.5 L (6.3-8.2) g/dL Albumin 2.9 L (3.5-5.0) g/dL Urine Protein Trace H (Negative) Urine Glucose (UA) 3+ H (Negative) Urine Blood Trace H (Negative) Ur Leukocyte Esterase Small H (Negative) Urine WBC 7 H (0-5) /hpf Urine Bacteria Rare H (None) /hpf Urine Mucus Rare H (None) /hpf 18 10/05/17 Range/Units 20:52 07:18 WBC (3.8-10.6) k/uL RBC (3.80-5.40) m/uL Hgb (11.4-16.0) gm/dL Hct (34.0-46.0) % RDW (11.5-15.5) % Plt Count (150-450) k/uL Neutrophils # (1.3-7.7) k/uL Monocytes # (0-1.0) k/uL Chloride (98-107) mmol/L Carbon Dioxide (22-30) mmol/L Glucose (74-99) mg/dL POC Glucose (mg/dL) 242 H 73 L (75-99) mg/dL Total Protein (6.3-8.2) g/dL Albumin (3.5-5.0) g/dL Urine Protein (Negative) Urine Glucose (UA) (Negative) Urine Blood (Negative) Ur Leukocyte Esterase (Negative) Urine WBC (0-5) /hpf Urine Bacteria (None) /hpf Urine Mucus (None) /hpf Thrombosis Risk Factor Assmnt - Choose All That Apply Each Factor Represents 1 point: Obesity (BMI >25) Each Risk Factor Represents 2 Points: Age 61-74 years Thrombosis Risk Factor Assessment Total Risk Factor Score: 3 Thrombosis Risk Factor Assessment Level: Moderate Risk Assessment and Plan Assessment: 1. Recent urosepsis with bacteremia and culture growing Proteus mirabilis. Patient was seen by infectious disease during last admission. She did not tolerate oral Cipro. She is currently finishing antibiotic course with IV ceftriaxone 2 g daily for total of 2 weeks. She lost IV access. Consider PICC line in the morning 2. Type 2 diabetes mellitus, with glucose within acceptable range. Continue home dose of insulin 3. Essential hypertension: Blood pressure well-controlled 4. Nephrolithiasis with recent cystoscopy and dizzy at times he with double-J stent placement to the left ureter. 5. Underlying rheumatoid arthritis on methotrexate currently on hold secondary to underlying infection 6. Chronic iron deficiency anemia Plan for PICC line insertion tomorrow. Anticipate discharge home tomorrow. Finish 12 days course remaining of IV antibiotic at home.
[2017-10-05 11:54] LABS: Glucose,Whole Blood 123 mg/dL (75-99)
[2017-10-05 17:16] LABS: Glucose,Whole Blood 156 mg/dL (75-99)
[2017-10-05] MEDS ORDERED: METHOTREXATE SQ SCH (17:31)
[2017-10-05 20:59] LABS: Glucose,Whole Blood 185 mg/dL (75-99)
[2017-10-05] MEDS: ATENOLOL 12.5 MG TAB PO SCH (21:28)
[2017-10-05] MEDS: INSULIN DETEMIR 100 UNIT/ML 10 ML VIAL SQ SCH (21:29)
[2017-10-06] MEDS: ONDANSETRON 4 MG/2 ML VIAL IVP PRN (01:30)
[2017-10-06] MEDS: oxyCODONE-APAP 5-325MG 1 EACH TAB PO PRN ×4 (02:36→18:35)
[2017-10-06 06:00] LABS: Glucose,Whole Blood 61 mg/dL (75-99)
[2017-10-06 06:17] LABS: Glucose,Whole Blood 77 mg/dL (75-99)
[2017-10-06] MEDS ORDERED: INSULIN DETEMIR 100 UNIT/ML 10 ML VIAL SQ SCH (06:45)
[2017-10-06] MEDS: PANTOPRAZOLE 40 MG/10 ML VIAL IV SCH (07:41)
[2017-10-06] MEDS: metFORMIN 500 MG TAB PO SCH ×2 (07:41→20:54)
[2017-10-06] MEDS: HEPARIN SODIUM,PORCINE 5,000 UNIT/ML 1 ML VIAL SQ SCH ×2 (07:41→16:02)
[2017-10-06] MEDS: CHOLECALCIFEROL 1,000 UNIT TAB PO SCH (07:42)
[2017-10-06] MEDS: FERROUS SULFATE 325 MG TAB PO SCH ×2 (07:42→20:54)
[2017-10-06] MEDS: cefTRIAXone IN SWFI 2,000 MG/20 ML SYRINGE IVP SCH (07:42)
[2017-10-06] MEDS: OXYBUTYNIN CHLORIDE 5 MG TAB PO SCH ×3 (07:42→20:54)
[2017-10-06] MEDS: GEMFIBROZIL 600 MG TAB PO SCH ×2 (07:43→17:45)
[2017-10-06 07:57] LABS: Glucose,Whole Blood 148 mg/dL (75-99)
--- NOTE | 2017-10-06 09:59 | P.PN ---
Subjective Progress Note Date: 10/06/17 This is a 62-year-old female with past medical history noted below who was discharged from the hospital 2 days ago after being treated for urosepsis and underwent cystoscopy with lithotripsy and double-J catheter placement to the left ureter. Patient was doing fairly well. She was discharged home on antibiotic with IV ceftriaxone secondary to bacteremia noted during last admission. She was getting antibiotics through a midline in the superficial vein in the left forearm. Yesterday her visiting nurse came in and the IV has infiltrated. She was sent to the emergency room for evaluation. She underwent ultrasound in the emergency room showing superficial phlebitis. She is currently admitted to the hospital to continue her IV antibiotic. She is doing fairly well otherwise. Patient does not have any concerns or complaints. 10/06/2017 patient still complaining of nausea and abdominal tenderness. Patient is also having low-grade temps as high as 99.9. CBC, blood cultures and urine culture has been ordered. Patient also states she has been having diarrhea for 2 days. C. diff negative. Patient currently getting Rocephin through peripheral line. Patient also complaining of some shortness of breath. On room air, oxygen saturation 93-95%. Chest x-ray has been ordered. Denies chest pain. Objective - Vital Signs Vital signs: Vital Signs Temp 96.8 F L 10/06/17 06:44 Pulse 75 10/06/17 06:44 Resp 16 10/06/17 06:44 BP 130/62 10/06/17 06:44 Pulse Ox 93 L 10/06/17 06:44 Intake & Output 10/05/17 10/06/17 10/06/17 18:59 06:59 18:59 Intake Total 1999 100 Balance 1999 100 Intake: Intake, IV Titration 800 Amount Sodium Chloride 0.9% 1, 800 000 ml @ 100 mls/hr IV . Q10H MARITA Rx#:[id number] Oral 1200 100 Other: Voiding Method Toilet # Voids 1 3 # Bowel Movements 1 - Exam Head normocephalic Neck supple Lungs clear to auscultation bilaterally no wheezing or crackles Heart regular rate and rhythm S1-S2, no rub or gallop Abdomen is soft with some tenderness. nondistended positive bowel sounds no hepatosplenomegaly Extremities no edema Neuro alert and orientated to 3 - Labs CBC & Chem 7: 10/04/17 15:35 06/23/18 15:35 Labs: Abnormal Lab Results - Last 24 Hours (Table) 10/05/17 10/05/17 10/05/17 Range/Units 11:49 17:03 20:52 POC Glucose (mg/dL) 123 H 156 H 185 H (75-99) mg/dL 10/06/17 10/06/17 Range/Units 05:58 07:26 POC Glucose (mg/dL) 61 L 148 H (75-99) mg/dL Assessment and Plan Assessment: 1. Recent urosepsis with bacteremia and culture growing Proteus mirabilis. Patient was seen by infectious disease during last admission. She did not tolerate oral Cipro. She is currently finishing antibiotic course with IV ceftriaxone 2 g daily for total of 2 weeks. She lost IV access. Consider PICC line in the morning. Patient currently having low grade temps along with nausesa and diarrhea. C-diff negative. Blood cultures, urine cultures and CBC has been ordered. Patient also complains of some shortness of breath, chest x-ray has been ordered. 2. Type 2 diabetes mellitus, with glucose within acceptable range. Continue home dose of insulin 3. Essential hypertension: Blood pressure well-controlled 4. Nephrolithiasis with recent cystoscopy and dizzy at times he with double-J stent placement to the left ureter. 5. Underlying rheumatoid arthritis on methotrexate currently on hold secondary to underlying infection 6. Chronic iron deficiency anemia GI prophylactic Protonix, DVT prophylactic heparin Patient will need 12 day course remaining of IV antibiotic at home. I performed an examination of the patient and discussed their management with the Nurse Practitioner. I have reviewed the Nurse Practitioner's notes and agree with the documented findings and plan of care
[2017-10-06 10:09] LABS: Anisocytosis Slight; Basophils % (A) 0 %; Eosinophils # (A) 0.1 k/uL (0-0.7); Eosinophils % (A) 1 %; HCT 28.4 % (34.0-46.0); HGB 8.7 gm/dL (11.4-16.0); Hypochromasia Slight; Lymphocytes # (A) 1.4 k/uL (1.0-4.8); Lymphocytes % (A) 11 %; MCH 28.1 pg (25.0-35.0); MCHC 30.8 g/dL (31.0-37.0); MCV 91.4 fL (80.0-100.0); Mean Platelet Volume 6.7; Monocytes # (A) 0.5 k/uL (0-1.0); Monocytes % (A) 4 %; Neutrophils # (A) 10.9 k/uL (1.3-7.7); Neutrophils % (A) 83 %; Platelet Count 564 k/uL (150-450); WBC 13.2 k/uL (3.8-10.6)
[2017-10-06 10:34] LABS: ALT 35 U/L (9-52); AST 16 U/L (14-36); Albumin 2.8 g/dL (3.5-5.0); Alkaline Phosphatase 93 U/L (38-126); Anion Gap 11 mmol/L; Blood Urea Nitrogen 10 mg/dL (7-17); Calcium 8.5 mg/dL (8.4-10.2); Carbon Dioxide 22 mmol/L (22-30); Chloride 108 mmol/L (98-107); Glucose 188 mg/dL (74-99); Potassium 4.7 mmol/L (3.5-5.1); Sodium 141 mmol/L (137-145); Total Bilirubin <0.1 mg/dL (0.2-1.3); Total Protein 5.5 g/dL (6.3-8.2)
[2017-10-06 12:03] LABS: Glucose,Whole Blood 82 mg/dL (75-99)
[2017-10-06 13:43] LABS: Amylase 51 U/L (30-110); Lipase 66 U/L (23-300)
--- NOTE | 2017-10-06 14:23 | XR ---
EXAMINATION TYPE: XR chest 2V DATE OF EXAM: 10/06/2017 COMPARISON: Prior chest x-ray 09/28/2017 HISTORY: Shortness of breath TECHNIQUE: Frontal and lateral views of the chest are obtained. FINDINGS: Exam is expiratory and rotated. There is no focal air space opacity or pneumothorax seen. Question minimal blunting of the costophrenic angles. The cardiac silhouette size is stable. The o sseous structures are intact. IMPRESSION: Difficult to exclude some minimal basilar atelectasis or possibly small effusion. Consid er follow-up.
[2017-10-06 17:26] LABS: Glucose,Whole Blood 148 mg/dL (75-99)
[2017-10-06] MEDS: ATENOLOL 12.5 MG TAB PO SCH (20:53)
[2017-10-06 21:17] LABS: Glucose,Whole Blood 219 mg/dL (75-99)
[2017-10-07] MEDS: HEPARIN SODIUM,PORCINE 5,000 UNIT/ML 1 ML VIAL SQ SCH ×3 (00:18→16:24)
[2017-10-07] MEDS: oxyCODONE-APAP 5-325MG 1 EACH TAB PO PRN ×5 (00:18→21:15)
[2017-10-07] MEDS: ONDANSETRON 4 MG/2 ML VIAL IVP PRN (05:18)
[2017-10-07 05:21] LABS: Glucose,Whole Blood 68 mg/dL (75-99)
[2017-10-07 05:37] LABS: Glucose,Whole Blood 103 mg/dL (75-99)
[2017-10-07 07:45] LABS: Glucose,Whole Blood 100 mg/dL (75-99)
[2017-10-07] MEDS: GEMFIBROZIL 600 MG TAB PO SCH ×2 (08:02→16:25)
[2017-10-07] MEDS: PANTOPRAZOLE 40 MG TABLET PO SCH (08:03)
[2017-10-07] MEDS: cefTRIAXone IN SWFI 2,000 MG/20 ML SYRINGE IVP SCH (08:03)
[2017-10-07] MEDS: CHOLECALCIFEROL 1,000 UNIT TAB PO SCH (08:04)
[2017-10-07] MEDS: FERROUS SULFATE 325 MG TAB PO SCH ×2 (08:05→21:11)
[2017-10-07] MEDS: metFORMIN 500 MG TAB PO SCH ×2 (08:05→21:11)
[2017-10-07] MEDS: OXYBUTYNIN CHLORIDE 5 MG TAB PO SCH ×3 (08:05→21:11)
[2017-10-07 08:47] LABS: Anisocytosis Slight; Basophils # (A) 0.1 k/uL (0-0.2); Basophils % (A) 1 %; Eosinophils # (A) 0.3 k/uL (0-0.7); Eosinophils % (A) 2 %; HCT 28.9 % (34.0-46.0); Hypochromasia Slight; Lymphocytes # (A) 1.9 k/uL (1.0-4.8); Lymphocytes % (A) 14 %; MCH 28.6 pg (25.0-35.0); MCV 92.2 fL (80.0-100.0); Mean Platelet Volume 6.5; Monocytes # (A) 0.6 k/uL (0-1.0); Monocytes % (A) 5 %; Neutrophils # (A) 10.9 k/uL (1.3-7.7); Neutrophils % (A) 77 %; Platelet Count 653 k/uL (150-450); Poikilocytosis Slight; RBC 3.13 m/uL (3.80-5.40); RDW 16.4 % (11.5-15.5); WBC 14.1 k/uL (3.8-10.6)
[2017-10-07 09:24] LABS: ALT 32 U/L (9-52); AST 15 U/L (14-36); Albumin 2.9 g/dL (3.5-5.0); Alkaline Phosphatase 90 U/L (38-126); Anion Gap 11 mmol/L; Blood Urea Nitrogen 10 mg/dL (7-17); Calcium 8.8 mg/dL (8.4-10.2); Carbon Dioxide 25 mmol/L (22-30); Chloride 108 mmol/L (98-107); Glucose 99 mg/dL (74-99); Potassium 4.8 mmol/L (3.5-5.1); Sodium 144 mmol/L (137-145); Total Bilirubin <0.1 mg/dL (0.2-1.3); Total Protein 5.8 g/dL (6.3-8.2)
--- NOTE | 2017-10-07 09:52 | P.PN ---
Subjective Progress Note Date: 10/07/17 This is a 62-year-old female with past medical history noted below who was discharged from the hospital 2 days ago after being treated for urosepsis and underwent cystoscopy with lithotripsy and double-J catheter placement to the left ureter. Patient was doing fairly well. She was discharged home on antibiotic with IV ceftriaxone secondary to bacteremia noted during last admission. She was getting antibiotics through a midline in the superficial vein in the left forearm. Yesterday her visiting nurse came in and the IV has infiltrated. She was sent to the emergency room for evaluation. She underwent ultrasound in the emergency room showing superficial phlebitis. She is currently admitted to the hospital to continue her IV antibiotic. She is doing fairly well otherwise. Patient does not have any concerns or complaints. 10/06/2017 patient still complaining of nausea and abdominal tenderness. Patient is also having low-grade temps as high as 99.9. CBC, blood cultures and urine culture has been ordered. Patient also states she has been having diarrhea for 2 days. C. diff negative. Patient currently getting Rocephin through peripheral line. Patient also complaining of some shortness of breath. On room air, oxygen saturation 93-95%. Chest x-ray has been ordered. Denies chest pain. 10/07/2017 Patient sitting up in bed still complaining of nausea and diarrhea. Patient had temperature of 100.0F last night. Dr. Campos has been consulted. Urine and blood cultures have been sent. White blood cell count 14.1 today. C. diff negative. Patient also having episodes of high sugars in the 200s during the day and morning blood sugars in the 60's. Sliding scale insulin with meals has been added and long-acting insulin has been decreased to 29 units. Patient states shortness of breath has significantly improved currently on room air, oxygen saturation 97%. Denies chest pain. Awaiting infectious disease recommendation for PICC line placement. Objective - Vital Signs Vital signs: Vital Signs Temp 98.6 F 10/07/17 06:27 Pulse 80 10/07/17 06:27 Resp 18 10/07/17 06:27 BP 144/88 10/07/17 06:27 Pulse Ox 97 10/07/17 06:27 Intake & Output 10/06/17 10/07/17 10/07/17 18:59 06:59 18:59 Intake Total 1050 Balance 1050 Weight 90.265 kg Intake: Oral 1050 Other: Voiding Method Toilet # Voids 1 2 - Exam Head normocephalic Neck supple Lungs clear to auscultation bilaterally no wheezing or crackles Heart regular rate and rhythm S1-S2, no rub or gallop Abdomen is soft with some left-sided tenderness. nondistended positive bowel sounds no hepatosplenomegaly Extremities no edema Neuro alert and orientated to 3 - Labs CBC & Chem 7: 10/07/17 08:26 10/07/17 08:26 Labs: Abnormal Lab Results - Last 24 Hours (Table) 10/06/17 10/06/17 10/06/17 Range/Units 09:22 09:22 17:19 WBC 13.2 H (3.8-10.6) k/uL RBC 3.10 L (3.80-5.40) m/uL Hgb 8.7 L (11.4-16.0) gm/dL Hct 28.4 L (34.0-46.0) % MCHC 30.8 L (31.0-37.0) g/dL RDW 16.0 H (11.5-15.5) % Plt Count 564 H (150-450) k/uL Neutrophils # 10.9 H (1.3-7.7) k/uL Chloride 108 H (98-107) mmol/L Glucose 188 H (74-99) mg/dL POC Glucose (mg/dL) 148 H (75-99) mg/dL Total Bilirubin <0.1 L (0.2-1.3) mg/dL Total Protein 5.5 L (6.3-8.2) g/dL Albumin 2.8 L (3.5-5.0) g/dL 10/06/17 10/07/17 10/07/17 Range/Units 21:15 05:12 05:35 WBC (3.8-10.6) k/uL RBC (3.80-5.40) m/uL Hgb (11.4-16.0) gm/dL Hct (34.0-46.0) % MCHC (31.0-37.0) g/dL RDW (11.5-15.5) % Plt Count (150-450) k/uL Neutrophils # (1.3-7.7) k/uL Chloride (98-107) mmol/L Glucose (74-99) mg/dL POC Glucose (mg/dL) 219 H 68 L 103 H (75-99) mg/dL Total Bilirubin (0.2-1.3) mg/dL Total Protein (6.3-8.2) g/dL Albumin (3.5-5.0) g/dL 10/07/17 10/07/17 10/07/17 Range/Units 07:18 08:26 08:26 WBC 14.1 H (3.8-10.6) k/uL RBC 3.13 L (3.80-5.40) m/uL Hgb 9.0 L (11.4-16.0) gm/dL Hct 28.9 L (34.0-46.0) % MCHC (31.0-37.0) g/dL RDW 16.4 H (11.5-15.5) % Plt Count 653 H (150-450) k/uL Neutrophils # 10.9 H (1.3-7.7) k/uL Chloride 108 H (98-107) mmol/L Glucose (74-99) mg/dL POC Glucose (mg/dL) 100 H (75-99) mg/dL Total Bilirubin <0.1 L (0.2-1.3) mg/dL Total Protein 5.8 L (6.3-8.2) g/dL Albumin 2.9 L (3.5-5.0) g/dL Microbiology - Last 24 Hours (Table) 10/06/17 11:30 Urine Culture - Preliminary Urine,Clean Catch Assessment and Plan Assessment: 1. Recent urosepsis with bacteremia and culture growing Proteus mirabilis. Patient was seen by infectious disease during last admission. She did not tolerate oral Cipro. She is currently finishing antibiotic course with IV ceftriaxone 2 g daily for total of 2 weeks. She lost IV access. Consider PICC line in the morning. Patient currently having low grade temps along with nausesa and diarrhea. C-diff negative. Blood cultures, urine cultures and CBC has been ordered. Dr. Campos per infectious disease has been consulted. Awaiting IDs recommendation for PICC placement. 2. Type 2 diabetes mellitus. Patient having episodes of blood sugars in the 200s during the day and in the 60s in the morning. Sliding scale insulin with meals has been added and Lantus has been decreased to 29 units 3. Essential hypertension: Blood pressure well-controlled currently on atenolol. 4. Nephrolithiasis with recent cystoscopy and dizzy at times he with double-J stent placement to the left ureter. 5. Underlying rheumatoid arthritis on methotrexate currently on hold secondary to underlying infection 6. Chronic iron deficiency anemia continue ferrous sulfate. GI prophylactic Protonix, DVT prophylactic heparin I performed an examination of the patient and discussed their management with the Nurse Practitioner. I have reviewed the Nurse Practitioner's notes and agree with the documented findings and plan of care
[2017-10-07 12:43] LABS: Glucose,Whole Blood 91 mg/dL (75-99)
[2017-10-07] MEDS: INSULIN ASPART 100 UNIT/ML 1 ML 10 ML VIAL SQ SCH ×3 (13:17→21:15)
--- NOTE | 2017-10-07 16:40 | CONS ---
CONSULTATION DATE OF SERVICE: 10/07/2017. REASON FOR CONSULTATION: Proteus mirabilis bacteremia secondary to the urinary source. HISTORY OF PRESENT ILLNESS: The patient is a 62-year-old female who was recently admitted at this facility; however, the patient did have Proteus mirabilis sepsis secondary urinary source in a patient who did have a left hydronephrosis secondary to distal ureteral calculus. The patient is status post cystoscopy with placement of the left double-J catheter. The patient was treated with IV antibiotic therapy. Culture was returned finalized with Proteus mirabilis, both in the blood and in the urine. The patient was started on oral Cipro with a plan to transition to oral Cipro on discharge and continue with IV Rocephin; however, the patient did have significant GI side effects on the Cipro and refused to take that medication on discharge. Hence, the patient did get a Medline for continuation of IV Rocephin 2 g daily for another 10 days to finish a 2 week course of therapy. The patient went home on Friday coming back within 48 hours with concern for home care nurse unable to flush Medline. The patient complains of pain in the left forearm. Hence, the patient was sent to the ER for further evaluation of the same. The patient did have a Doppler which was positive for superficial vein thrombosis involving this vein. No evidence of left upper extremity DVT. The patient subsequently has been admitted to the hospital. She was started on Rocephin 2 g daily. I was asked to see the patient for further recommendation regarding antibiotic therapy. The patient during this admission did have a low-grade fever last evening of 100. Afebrile since then. The patient complaining of feeling weak and tired, no energy. The patient denies having any chest pain or shortness of breath or cough. No abdominal pain. No burning or frequency of urine. No diarrhea. REVIEW OF SYSTEMS: CONSTITUTIONAL: Positive for weakness and low-grade fever. EYES: No complaint. ENT: No complaint. RESPIRATORY: No complaint. CARDIOVASCULAR: No complaint. GENITOURINARY: No complaint. GASTROINTESTINAL: No complaint. MUSCULOSKELETAL: No complaint. INTEGUMENTARY: As per HPI. PSYCHOLOGICAL: No complaint. ENDOCRINE: No complaint. NEUROLOGIC: No complaint. PAST MEDICAL HISTORY: 1. Significant for diabetes mellitus, hypertension, rheumatoid arthritis, left-sided hydronephrosis secondary to left ureter stone. 2. Proteus mirabilis bacteremia secondary to urinary source. PAST SURGICAL HISTORY: Diagnostic laparoscopy and breast surgery with recent left ureteral stent placement. SOCIAL HISTORY: Remote history of smoking. No drinking or drug use. FAMILY HISTORY: No pertinent findings noticed. ALLERGIES: SULFA. MEDICATIONS: The patient is currently on Tylenol, Tenormin, Rocephin 2 g daily, vitamin D3, iron sulfate, , heparin, hydrochlorothiazide, NovoLog, Levemir, Toradol, Zestril, Glucophage, Narcan, Zofran, Ditropan, Protonix. EXAMINATION: Her blood pressure is 145/81 with a pulse of 90. Temperature 99.8, T-max 100. She is 95% on room air. General description is a middle aged female, lying in bed in no distress. No tachypnea or accessory muscle of respiration use. HEENT: Shows slight pallor. No scleral icterus. Oral mucosa membrane is dry. No pharyngeal erythema or thrush. NECK: Trachea central. No thyromegaly. LUNGS: Unlabored breathing, clear to auscultation anteriorly. No wheeze or crackle. HEART: S1, S2. Regular rate and rhythm. ABDOMEN: Soft, no tenderness. No guarding or rigidity. EXTREMITIES: No edema feet. SKIN EXAMINATION: No rash or mass palpable. NEUROLOGICAL: Patient is awake, alert, oriented. Mood and affect normal. LABS: Hemoglobin is 9 with white count 14.1. BUN of 10, creatinine 0.76. Blood count has been normal. The patient did have a UA done this admission which shows small leukocyte esterases. C diff has been negative. Repeat blood culture so far negative. DIAGNOSTIC IMPRESSION AND PLAN: Patient with complicated left-sided pyelonephritis with left ureteral stone status post cystoscopy and double-J catheter placement. The patient was discharged on IV Rocephin because of intolerance of p.o. Cipro. Subsequently in the hospital and inability to flush the left arm Medline with evidence of superficial vein thrombosis. No evidence of DVT. Now with low-grade fever. PLAN: 1. We gave the patient Rocephin 2 g daily in the hospital. 2. No need for any PICC line or Medline placement. We will recommend switching to oral Ceftin once she is stable for discharge from other consultants to finish a course of therapy. 3. We will follow up on clinical condition and further adjust medication if needed. Thank you for this consultation. Will follow this patient along with you. MMODL / IJN: [id number] /
[2017-10-07 17:21] LABS: Glucose,Whole Blood 221 mg/dL (75-99)
[2017-10-07 20:47] LABS: Glucose,Whole Blood 171 mg/dL (75-99)
[2017-10-07] MEDS: ATENOLOL 12.5 MG TAB PO SCH (21:11)
[2017-10-07] MEDS: INSULIN DETEMIR 100 UNIT/ML 10 ML VIAL SQ SCH (21:15)
[2017-10-08] MEDS: HEPARIN SODIUM,PORCINE 5,000 UNIT/ML 1 ML VIAL SQ SCH ×4 (00:16→23:35)
[2017-10-08 02:32] LABS: Glucose,Whole Blood 61 mg/dL (75-99)
[2017-10-08 05:58] LABS: Glucose,Whole Blood 79 mg/dL (75-99)
[2017-10-08 07:22] LABS: Glucose,Whole Blood 89 mg/dL (75-99)
[2017-10-08 08:33] LABS: Anisocytosis Slight; Basophils # (A) 0.1 k/uL (0-0.2); Basophils % (A) 0 %; Eosinophils # (A) 0.4 k/uL (0-0.7); Eosinophils % (A) 2 %; HCT 26.8 % (34.0-46.0); HGB 8.7 gm/dL (11.4-16.0); Lymphocytes # (A) 1.9 k/uL (1.0-4.8); Lymphocytes % (A) 13 %; MCH 29.1 pg (25.0-35.0); MCHC 32.5 g/dL (31.0-37.0); MCV 89.5 fL (80.0-100.0); Mean Platelet Volume 6.6; Monocytes # (A) 0.7 k/uL (0-1.0); Monocytes % (A) 5 %; Neutrophils % (A) 77 %; Platelet Count 626 k/uL (150-450); RBC 2.99 m/uL (3.80-5.40); WBC 14.3 k/uL (3.8-10.6)
[2017-10-08 09:43] LABS: ALT 26 U/L (9-52); AST 12 U/L (14-36); Albumin 2.7 g/dL (3.5-5.0); Alkaline Phosphatase 87 U/L (38-126); Anion Gap 10 mmol/L; Blood Urea Nitrogen 11 mg/dL (7-17); Calcium 8.7 mg/dL (8.4-10.2); Carbon Dioxide 26 mmol/L (22-30); Chloride 106 mmol/L (98-107); Glucose 83 mg/dL (74-99); Potassium 4.7 mmol/L (3.5-5.1); Sodium 142 mmol/L (137-145); Total Bilirubin <0.1 mg/dL (0.2-1.3); Total Protein 5.5 g/dL (6.3-8.2)
[2017-10-08] MEDS: GEMFIBROZIL 600 MG TAB PO SCH ×2 (10:47→17:40)
[2017-10-08] MEDS: INSULIN ASPART 100 UNIT/ML 1 ML 10 ML VIAL SQ SCH ×4 (10:47→21:18)
[2017-10-08] MEDS: PANTOPRAZOLE 40 MG TABLET PO SCH (10:47)
[2017-10-08] MEDS: cefTRIAXone IN SWFI 2,000 MG/20 ML SYRINGE IVP SCH (10:47)
[2017-10-08] MEDS: metFORMIN 500 MG TAB PO SCH ×2 (10:48→21:18)
[2017-10-08] MEDS: HYDROCHLOROTHIAZIDE 12.5 MG CAP PO SCH ×2 (10:48→11:32)
[2017-10-08] MEDS: OXYBUTYNIN CHLORIDE 5 MG TAB PO SCH ×3 (10:48→21:18)
[2017-10-08] MEDS: FERROUS SULFATE 325 MG TAB PO SCH ×2 (10:48→21:18)
[2017-10-08] MEDS: LISINOPRIL 20 MG TAB PO SCH ×2 (10:48→11:32)
[2017-10-08] MEDS: CHOLECALCIFEROL 1,000 UNIT TAB PO SCH (10:48)
[2017-10-08] MEDS: oxyCODONE-APAP 5-325MG 1 EACH TAB PO PRN ×4 (11:31→23:36)
[2017-10-08 12:04] LABS: Glucose,Whole Blood 108 mg/dL (75-99)
--- NOTE | 2017-10-08 12:38 | P.PN ---
Subjective Progress Note Date: 10/08/17 This is a 62-year-old female with past medical history noted below who was discharged from the hospital 2 days ago after being treated for urosepsis and underwent cystoscopy with lithotripsy and double-J catheter placement to the left ureter. Patient was doing fairly well. She was discharged home on antibiotic with IV ceftriaxone secondary to bacteremia noted during last admission. She was getting antibiotics through a midline in the superficial vein in the left forearm. Yesterday her visiting nurse came in and the IV has infiltrated. She was sent to the emergency room for evaluation. She underwent ultrasound in the emergency room showing superficial phlebitis. She is currently admitted to the hospital to continue her IV antibiotic. She is doing fairly well otherwise. Patient does not have any concerns or complaints. 10/06/2017 patient still complaining of nausea and abdominal tenderness. Patient is also having low-grade temps as high as 99.9. CBC, blood cultures and urine culture has been ordered. Patient also states she has been having diarrhea for 2 days. C. diff negative. Patient currently getting Rocephin through peripheral line. Patient also complaining of some shortness of breath. On room air, oxygen saturation 93-95%. Chest x-ray has been ordered. Denies chest pain. 10/07/2017 Patient sitting up in bed still complaining of nausea and diarrhea. Patient had temperature of 100.0F last night. Dr. Campos has been consulted. Urine and blood cultures have been sent. White blood cell count 14.1 today. C. diff negative. Patient also having episodes of high sugars in the 200s during the day and morning blood sugars in the 60's. Sliding scale insulin with meals has been added and long-acting insulin has been decreased to 29 units. Patient states shortness of breath has significantly improved currently on room air, oxygen saturation 97%. Denies chest pain. Awaiting infectious disease recommendation for PICC line placement. 10/08/2017 patient sitting up in bed still complaining of left abdominal and left flank pain. Patient does state diarrhea has resolved. Patient's blood sugar better this a.m. Due to continuing left abdominal pain and left flank pain. Will order a kidney ultrasound and consult urology. Patient denies chest pain or shortness of breath. Objective - Vital Signs Vital signs: Vital Signs Temp 98.1 F 10/07/17 23:00 Pulse 93 10/08/17 07:00 Resp 16 10/08/17 07:00 BP 130/69 10/07/17 23:00 Pulse Ox 96 10/07/17 23:00 Intake & Output 10/07/17 10/08/17 10/08/17 18:59 06:59 18:59 Intake Total 200 Balance 200 Intake: Oral 200 Other: Voiding Method Toilet Toilet Toilet # Voids 3 2 - Exam Head normocephalic Neck supple Lungs clear to auscultation bilaterally no wheezing or crackles Heart regular rate and rhythm S1-S2, no rub or gallop Abdomen is soft with some left-sided tenderness. nondistended positive bowel sounds no hepatosplenomegaly Extremities no edema Neuro alert and orientated to 3 - Labs CBC & Chem 7: 10/08/17 06:00 10/07/17 08:26 Labs: Abnormal Lab Results - Last 24 Hours (Table) 10/07/17 10/07/17 10/08/17 Range/Units 17:06 20:43 02:31 WBC (3.8-10.6) k/uL RBC (3.80-5.40) m/uL Hgb (11.4-16.0) gm/dL Hct (34.0-46.0) % RDW (11.5-15.5) % Plt Count (150-450) k/uL Neutrophils # (1.3-7.7) k/uL POC Glucose (mg/dL) 221 H 171 H 61 L (75-99) mg/dL 10/08/17 10/08/17 Range/Units 06:00 11:24 WBC 14.3 H (3.8-10.6) k/uL RBC 2.99 L (3.80-5.40) m/uL Hgb 8.7 L (11.4-16.0) gm/dL Hct 26.8 L (34.0-46.0) % RDW 16.0 H (11.5-15.5) % Plt Count 626 H (150-450) k/uL Neutrophils # 11.0 H (1.3-7.7) k/uL POC Glucose (mg/dL) 108 H (75-99) mg/dL Microbiology - Last 24 Hours (Table) 10/06/17 10:05 Blood Culture - Preliminary Blood No Growth after 24 hours 10/06/17 11:30 Urine Culture - Final Urine,Clean Catch Assessment and Plan Assessment: 1. Recent urosepsis with bacteremia and culture growing Proteus mirabilis. Patient was seen by infectious disease during last admission. She did not tolerate oral Cipro. She is currently finishing antibiotic course with IV ceftriaxone 2 g daily for total of 2 weeks. She lost IV access. Consider PICC line in the morning. Patient currently having low grade temps along with nausesa and diarrhea. C-diff negative. Blood cultures, urine cultures and CBC has been ordered. Dr. Andres taveras infectious disease has been consulted. Per infectious disease patient will be given Rocephin 2 g daily in the hospital. No need for PICC or midline placement at this time. Patient will possibly be switched to oral Ceftrin upon discharge per ID 2. Type 2 diabetes mellitus. Patient having episodes of blood sugars in the 200s during the day and in the 60s in the morning. Sliding scale insulin with meals has been added and Lantus has been decreased to 29 units. 3. Essential hypertension: Blood pressure well-controlled currently on atenolol. Patient's hydrochlorothiazide and lisinopril have been reordered. Current blood pressure 130/69 4. Nephrolithiasis with recent cystoscopy and dizzy at times he with double-J stent placement to the left ureter. He should still complaining of left abdominal and flank pain. Ultrasound of kidneys has been ordered. Dr. Aaron taveras urology has also been consulted. 5. Underlying rheumatoid arthritis on methotrexate currently on hold secondary to underlying infection 6. Chronic iron deficiency anemia continue ferrous sulfate. GI prophylactic Protonix, DVT prophylactic heparin I performed an examination of the patient and discussed their management with the Nurse Practitioner. I have reviewed the Nurse Practitioner's notes and agree with the documented findings and plan of care
--- NOTE | 2017-10-08 13:55 | US ---
EXAMINATION TYPE: US kidneys/renal and bladder DATE OF EXAM: 10/08/2017 COMPARISON: NONE CLINICAL HISTORY: lefty flank pain, hx of hydronephrosis. left renal stent 09-27-17 EXAM MEASUREMENTS: Right Kidney: 11.3 x 4.3 x 4.9 cm Left Kidney: 12.0 x 5.9 x 4.6 cm Right Kidney: echogenic foci, probable stone measuring 0.4 x 0.3 x 0.5cm Left Kidney: No hydronephrosis or masses seen Bladder: not fully distended No masses are identified. The urinary bladder is anechoic. Bilateral ureteral jets are seen. IMPRESSION: Nonobstructing nephrolithiasis right kidney.
[2017-10-08 17:22] LABS: Glucose,Whole Blood 212 mg/dL (75-99)
[2017-10-08 20:43] LABS: Glucose,Whole Blood 190 mg/dL (75-99)
[2017-10-08] MEDS: INSULIN DETEMIR 100 UNIT/ML 10 ML VIAL SQ SCH (21:17)
[2017-10-08] MEDS: ATENOLOL 12.5 MG TAB PO SCH (21:18)
--- NOTE | 2017-10-08 23:24 | PN ---
PROGRESS NOTE DATE OF SERVICE: 10/08/2017. REASON FOR FOLLOW UP: Proteus mirabilis bacteremia secondary to urinary source. INTERVAL HISTORY: The patient is afebrile. She is still complaining of pain to the left flank area. No nausea, vomiting. Denies having any chest pain or shortness of breath or cough. EXAMINATION: Her blood pressure is 125/77 with a pulse of 90, temperature 98.8. She is 95% on room air. General description is middle-aged female up in the bed in no distress. RESPIRATORY SYSTEM: Unlabored breathing. Clear to auscultation anteriorly. HEART: S1, S2. Regular rate and rhythm. ABDOMEN: Soft, no tenderness. LABS: BUN of 11, creatinine 0.79. DIAGNOSTIC IMPRESSION AND PLAN: Patient with recent admission to hospital with Proteus mirabilis urinary tract infection with secondary bacteremia with a left hydronephrosis status post JJ catheter placement. She did have an ultrasound with no evidence of any hydronephrosis on the left side, no obstructing stone on the right side. The patient will continue with Rocephin and finish therapy with oral Ceftin. Continue supportive care. MMODL / IJN: [id number] /
[2017-10-09 02:03] LABS: Glucose,Whole Blood 112 mg/dL (75-99)
[2017-10-09] MEDS: oxyCODONE-APAP 5-325MG 1 EACH TAB PO PRN ×5 (05:12→21:01)
[2017-10-09] MEDS: ONDANSETRON 4 MG/2 ML VIAL IVP PRN ×2 (05:21→17:20)
[2017-10-09 05:37] LABS: Glucose,Whole Blood 69 mg/dL (75-99)
[2017-10-09 05:48] LABS: Glucose,Whole Blood 112 mg/dL (75-99)
[2017-10-09 07:14] LABS: Glucose,Whole Blood 109 mg/dL (75-99)
[2017-10-09] MEDS: INSULIN ASPART 100 UNIT/ML 1 ML 10 ML VIAL SQ SCH ×4 (07:45→21:02)
[2017-10-09 08:06] LABS: Basophils # (A) 0.1 k/uL (0-0.2); Basophils % (A) 0 %; Eosinophils # (A) 0.3 k/uL (0-0.7); Eosinophils % (A) 2 %; HGB 9.4 gm/dL (11.4-16.0); Hypochromasia Slight; Lymphocytes # (A) 2.1 k/uL (1.0-4.8); Lymphocytes % (A) 12 %; MCH 28.3 pg (25.0-35.0); MCHC 31.2 g/dL (31.0-37.0); MCV 90.5 fL (80.0-100.0); Mean Platelet Volume 6.4; Monocytes # (A) 0.8 k/uL (0-1.0); Monocytes % (A) 5 %; Neutrophils % (A) 78 %; Platelet Count 687 k/uL (150-450); RBC 3.31 m/uL (3.80-5.40); WBC 16.6 k/uL (3.8-10.6)
[2017-10-09 08:21] LABS: ALT 29 U/L (9-52); AST 10 U/L (14-36); Alkaline Phosphatase 94 U/L (38-126); Anion Gap 8 mmol/L; Blood Urea Nitrogen 12 mg/dL (7-17); Calcium 8.8 mg/dL (8.4-10.2); Carbon Dioxide 29 mmol/L (22-30); Chloride 102 mmol/L (98-107); Glucose 102 mg/dL (74-99); Sodium 139 mmol/L (137-145); Total Bilirubin 0.2 mg/dL (0.2-1.3); Total Protein 5.9 g/dL (6.3-8.2)
[2017-10-09] MEDS: HEPARIN SODIUM,PORCINE 5,000 UNIT/ML 1 ML VIAL SQ SCH ×3 (08:38→23:17)
[2017-10-09] MEDS: metFORMIN 500 MG TAB PO SCH ×2 (08:38→20:37)
[2017-10-09] MEDS: FERROUS SULFATE 325 MG TAB PO SCH ×2 (08:38→20:37)
[2017-10-09] MEDS: cefTRIAXone IN SWFI 2,000 MG/20 ML SYRINGE IVP SCH (08:38)
[2017-10-09] MEDS: OXYBUTYNIN CHLORIDE 5 MG TAB PO SCH ×3 (08:38→20:37)
[2017-10-09] MEDS: GEMFIBROZIL 600 MG TAB PO SCH ×2 (08:38→17:22)
[2017-10-09] MEDS: CHOLECALCIFEROL 1,000 UNIT TAB PO SCH (08:39)
[2017-10-09] MEDS: LISINOPRIL 20 MG TAB PO SCH (08:39)
[2017-10-09] MEDS: HYDROCHLOROTHIAZIDE 12.5 MG CAP PO SCH (08:39)
[2017-10-09] MEDS: PANTOPRAZOLE 40 MG TABLET PO SCH (08:39)
[2017-10-09 11:42] LABS: Glucose,Whole Blood 127 mg/dL (75-99)
--- NOTE | 2017-10-09 11:57 | P.PN ---
Subjective Progress Note Date: 10/09/17 This is a 62-year-old female with past medical history noted below who was discharged from the hospital 2 days ago after being treated for urosepsis and underwent cystoscopy with lithotripsy and double-J catheter placement to the left ureter. Patient was doing fairly well. She was discharged home on antibiotic with IV ceftriaxone secondary to bacteremia noted during last admission. She was getting antibiotics through a midline in the superficial vein in the left forearm. Yesterday her visiting nurse came in and the IV has infiltrated. She was sent to the emergency room for evaluation. She underwent ultrasound in the emergency room showing superficial phlebitis. She is currently admitted to the hospital to continue her IV antibiotic. She is doing fairly well otherwise. Patient does not have any concerns or complaints. 10/06/2017 patient still complaining of nausea and abdominal tenderness. Patient is also having low-grade temps as high as 99.9. CBC, blood cultures and urine culture has been ordered. Patient also states she has been having diarrhea for 2 days. C. diff negative. Patient currently getting Rocephin through peripheral line. Patient also complaining of some shortness of breath. On room air, oxygen saturation 93-95%. Chest x-ray has been ordered. Denies chest pain. 10/07/2017 Patient sitting up in bed still complaining of nausea and diarrhea. Patient had temperature of 100.0F last night. Dr. Campos has been consulted. Urine and blood cultures have been sent. White blood cell count 14.1 today. C. diff negative. Patient also having episodes of high sugars in the 200s during the day and morning blood sugars in the 60's. Sliding scale insulin with meals has been added and long-acting insulin has been decreased to 29 units. Patient states shortness of breath has significantly improved currently on room air, oxygen saturation 97%. Denies chest pain. Awaiting infectious disease recommendation for PICC line placement. 10/08/2017 patient sitting up in bed still complaining of left abdominal and left flank pain. Patient does state diarrhea has resolved. Patient's blood sugar better this a.m. Due to continuing left abdominal pain and left flank pain. Will order a kidney ultrasound and consult urology. Patient denies chest pain or shortness of breath. 10/09/2017 patient lying in bed with complaints of abdominal pain. Ultrasound of kidneys completed yesterday showing nonobstructing nephrolithiasis right kidney. Awaiting on urology consult. Patient did have fever up 100.1 morning patient currently still on Rocephin. White blood cell 16.6. Blood culture and Urine cultures are negative. Patient states that she is no longer having diarrhea. EKG has been ordered due to patient stating she has a history of palpitations. Denies chest pain at this time. Denies any shortness of breath. Objective - Vital Signs Vital signs: Vital Signs Temp 100.1 F H 10/09/17 06:01 Pulse 90 10/09/17 08:00 Resp 17 10/09/17 08:00 BP 114/62 10/09/17 06:01 Pulse Ox 94 L 10/09/17 06:01 Intake & Output 10/08/17 10/09/17 10/09/17 18:59 06:59 18:59 Other: Voiding Method Toilet Toilet Toilet # Voids 3 1 - Exam Head normocephalic Neck supple Lungs clear to auscultation bilaterally no wheezing or crackles Heart regular rate and rhythm S1-S2, no rub or gallop Abdomen is soft with some left-sided tenderness. nondistended positive bowel sounds no hepatosplenomegaly Extremities no edema Neuro alert and orientated to 3 - Labs CBC & Chem 7: 10/09/17 07:31 10/09/17 07:31 Labs: Abnormal Lab Results - Last 24 Hours (Table) 10/08/17 10/08/17 10/08/17 Range/Units 07:10 11:24 17:02 WBC (3.8-10.6) k/uL RBC (3.80-5.40) m/uL Hgb (11.4-16.0) gm/dL Hct (34.0-46.0) % RDW (11.5-15.5) % Plt Count (150-450) k/uL Neutrophils # (1.3-7.7) k/uL Glucose (74-99) mg/dL POC Glucose (mg/dL) 108 H 212 H (75-99) mg/dL Total Bilirubin <0.1 L (0.2-1.3) mg/dL AST 12 L (14-36) U/L Total Protein 5.5 L (6.3-8.2) g/dL Albumin 2.7 L (3.5-5.0) g/dL 10/08/17 10/09/17 10/09/17 Range/Units 20:41 02:02 05:14 WBC (3.8-10.6) k/uL RBC (3.80-5.40) m/uL Hgb (11.4-16.0) gm/dL Hct (34.0-46.0) % RDW (11.5-15.5) % Plt Count (150-450) k/uL Neutrophils # (1.3-7.7) k/uL Glucose (74-99) mg/dL POC Glucose (mg/dL) 190 H 112 H 69 L (75-99) mg/dL Total Bilirubin (0.2-1.3) mg/dL AST (14-36) U/L Total Protein (6.3-8.2) g/dL Albumin (3.5-5.0) g/dL 10/09/17 10/09/17 10/09/17 Range/Units 05:47 07:12 07:31 WBC 16.6 H (3.8-10.6) k/uL RBC 3.31 L (3.80-5.40) m/uL Hgb 9.4 L (11.4-16.0) gm/dL Hct 30.0 L (34.0-46.0) % RDW 16.0 H (11.5-15.5) % Plt Count 687 H (150-450) k/uL Neutrophils # 13.0 H (1.3-7.7) k/uL Glucose (74-99) mg/dL POC Glucose (mg/dL) 112 H 109 H (75-99) mg/dL Total Bilirubin (0.2-1.3) mg/dL AST (14-36) U/L Total Protein (6.3-8.2) g/dL Albumin (3.5-5.0) g/dL 10/09/17 10/09/17 Range/Units 07:31 11:40 WBC (3.8-10.6) k/uL RBC (3.80-5.40) m/uL Hgb (11.4-16.0) gm/dL Hct (34.0-46.0) % RDW (11.5-15.5) % Plt Count (150-450) k/uL Neutrophils # (1.3-7.7) k/uL Glucose 102 H (74-99) mg/dL POC Glucose (mg/dL) 127 H (75-99) mg/dL Total Bilirubin (0.2-1.3) mg/dL AST 10 L (14-36) U/L Total Protein 5.9 L (6.3-8.2) g/dL Albumin 3.0 L (3.5-5.0) g/dL Microbiology - Last 24 Hours (Table) 10/06/17 10:05 Blood Culture - Preliminary Blood No Growth after 48 hours Assessment and Plan Assessment: 1. Recent urosepsis with bacteremia and culture growing Proteus mirabilis. Patient was seen by infectious disease during last admission. She did not tolerate oral Cipro. She is currently finishing antibiotic course with IV ceftriaxone 2 g daily for total of 2 weeks. She lost IV access. Consider PICC line in the morning. Patient currently having low grade temps along with nausesa and diarrhea. C-diff negative. Blood cultures, urine cultures and CBC has been ordered. Dr. Andres taveras infectious disease has been consulted. Per infectious disease patient will be given Rocephin 2 g daily in the hospital. No need for PICC or midline placement at this time. Patient will possibly be switched to oral Ceftrin upon discharge per ID 2. Type 2 diabetes mellitus. Patient having episodes of blood sugars in the 200s during the day and in the 60s in the morning. Sliding scale insulin with meals has been added and Lantus has been decreased to 29 units. 3. Essential hypertension: Blood pressure well-controlled currently on atenolol. Patient's hydrochlorothiazide and lisinopril have been reordered. 4. Nephrolithiasis with recent cystoscopy and dizzy at times he with double-J stent placement to the left ureter. He should still complaining of left abdominal and flank pain. Ultrasound of kidneys has been ordered. Dr. Aaron taveras urology has also been consulted. Ultrasound kidneys completed showing nonobstructing nephrolithiasis right kidney. 5. Underlying rheumatoid arthritis on methotrexate currently on hold secondary to underlying infection 6. Chronic iron deficiency anemia continue ferrous sulfate. GI prophylactic Protonix, DVT prophylactic heparin I performed an examination of the patient and discussed their management with the Nurse Practitioner. I have reviewed the Nurse Practitioner's notes and agree with the documented findings and plan of care
[2017-10-09] MEDS: IOPAMIDOL-300 CONTRAST 30 ML VIAL (ORAL USE) PO PRN ×2 (14:09→15:13)
[2017-10-09 15:28] LABS: Appearance,Urine Clear (Clear); Bacteria,Urine Rare /hpf; Bilirubin,Urine Negative (Negative); Blood,Urine Trace (Negative); Color,Urine Light Yellow; Glucose,Urine (UA) Negative (Negative); Ketones,Urine Negative (Negative); Leukocyte Esterase,Urine Small (Negative); Mucus,Urine Rare /hpf; Nitrite,Urine Negative (Negative); PH, Urine 6.5 (5.0-8.0); Protein,Urine 1+ (Negative); RBC,Urine 2 /hpf (0-5); Specific Gravity,Urine 1.011 (1.001-1.035); Squamous Epithelial Cell,Urine <1 /hpf (0-4); Urobilinogen,Urine <2.0 mg/dL (<2.0); WBC,Urine 13 /hpf (0-5)
--- NOTE | 2017-10-09 17:12 | CT ---
EXAMINATION TYPE: CT abdomen pelvis wo con DATE OF EXAM: 10/09/2017 COMPARISON: 09/28/2017 HISTORY: Abdominal pain and fever CT DLP: 1068 mGycm Automated exposure control for dose reduction was used. TECHNIQUE: Helical acquisition of images was performed from the lung bases through the pelvis. FINDINGS: There is some mild linear density at the lung bases on the right side more than the left consistent w ith scarring and atelectasis. There is no pleural effusion. There are small hiatal hernia. Gallbladde r is dilated and measures 5.2 cm. Liver shows no focal defect. Mild ducts are not dilated. The spleen appears normal. There is left side perinephric edema. There is left ureteral stent that appears in g ood position. There is mild left hydronephrosis. There is a 5 mm calculus in the right kidney. There is no right-sided hydronephrosis. There is no retroperitoneal adenopathy. There is no pancreatic mass . There is no ascites. There is no intestinal wall thickening. There are no dilated loops. There are few sigmoid diverticula. There is no sign of diverticulitis. Bladder distends smoothly. There is mult ilevel spondylotic changes in the lumbar spine. There is no compression fracture. Uterus is anteverte d. I see no pelvic mass. Appendix appears normal. IMPRESSION: LEFT URETERAL STENT APPEARS IN GOOD POSITION. MILD LEFT HYDRONEPHROSIS. THERE IS SOME IMPROVEMENT IN THE PERINEPHRIC EDEMA COMPARED TO LAST EXAM. NONOBSTRUCTING RIGHT RENAL CALCULUS. Dilated gallbladder appears increased compared to last exam and is suggestive of cholecystitis.
[2017-10-09 17:16] LABS: Glucose,Whole Blood 263 mg/dL (75-99)
[2017-10-09] MEDS: ATENOLOL 12.5 MG TAB PO SCH (20:36)
[2017-10-09 20:44] LABS: Glucose,Whole Blood 157 mg/dL (75-99)
[2017-10-09] MEDS: INSULIN DETEMIR 100 UNIT/ML 10 ML VIAL SQ SCH (21:02)
--- NOTE | 2017-10-09 21:53 | PN ---
PROGRESS NOTE DATE OF SERVICE: 10/09/2017 REASON FOR FOLLOWUP: 1. Proteus mirabilis UTI bacteremia. 2. New fever. INTERVAL HISTORY: The patient did have a fever of 100.1 last night. Her white count is slightly elevated. The patient overall is not feeling as good. Denies having any chest pain or shortness of breath or cough. Pain is mostly in the left lower abdominal area. She did have some diarrhea yesterday. That seems to have resolved. PHYSICAL EXAMINATION: Blood pressure is 131/73 with a pulse of 94, temperature 98.3. She is 94% on room air. General description is a middle-aged female lying in bed in no distress. RESPIRATORY SYSTEM: Unlabored breathing. Clear to auscultation anteriorly. HEART: S1, S2. Regular rate and rhythm. ABDOMEN: Soft. Minimal tenderness in the lower quadrant area. No guarding or rigidity. EXTREMITIES: No edema of the feet. DIAGNOSTIC IMPRESSION AND PLAN: Patient with Proteus mirabilis urinary tract infection with bacteremia, for which the patient is on a proven antibiotic therapy; however, white count has been on the upward trend and she did have a fever. For that we did obtain a CT of the abdomen and pelvis that is suggestive of possible cholecystitis. Antibiotic has been adjusted to Unasyn 3 grams q.6. Discontinue the Rocephin. RN was called to inform the admitting physician about getting a surgical consultation. Continue with supportive care. DARLIN / YADI: [id number] /
[2017-10-09] MEDS: AMPICILLIN-SULBACTAM 3 GM in SODIUM CHLORIDE 0.9% 100 ML IVPB SCH (23:16)
[2017-10-10] MEDS: oxyCODONE-APAP 5-325MG 1 EACH TAB PO PRN ×5 (01:24→20:00)
[2017-10-10 01:48] LABS: Glucose,Whole Blood 141 mg/dL (75-99)
[2017-10-10] MEDS: AMPICILLIN-SULBACTAM 3 GM in SODIUM CHLORIDE 0.9% 100 ML IVPB SCH ×4 (06:01→23:24)
[2017-10-10 06:09] LABS: Glucose,Whole Blood 78 mg/dL (75-99)
[2017-10-10 07:01] LABS: Glucose,Whole Blood 103 mg/dL (75-99)
[2017-10-10 07:52] LABS: Anisocytosis Slight; Basophils # (A) 0.1 k/uL (0-0.2); Basophils % (A) 0 %; Eosinophils # (A) 0.4 k/uL (0-0.7); Eosinophils % (A) 3 %; HCT 29.1 % (34.0-46.0); HGB 9.2 gm/dL (11.4-16.0); Hypochromasia Slight; Lymphocytes # (A) 2.3 k/uL (1.0-4.8); Lymphocytes % (A) 14 %; MCH 28.8 pg (25.0-35.0); MCHC 31.6 g/dL (31.0-37.0); MCV 91.1 fL (80.0-100.0); Mean Platelet Volume 7.1; Monocytes # (A) 1.2 k/uL (0-1.0); Monocytes % (A) 7 %; Neutrophils # (A) 12.2 k/uL (1.3-7.7); Neutrophils % (A) 74 %; Platelet Count 698 k/uL (150-450); RBC 3.19 m/uL (3.80-5.40); RDW 16.2 % (11.5-15.5); WBC 16.4 k/uL (3.8-10.6)
[2017-10-10 08:07] LABS: ALT 23 U/L (9-52); AST 11 U/L (14-36); Albumin 2.9 g/dL (3.5-5.0); Alkaline Phosphatase 87 U/L (38-126); Anion Gap 11 mmol/L; Blood Urea Nitrogen 13 mg/dL (7-17); Calcium 8.9 mg/dL (8.4-10.2); Carbon Dioxide 27 mmol/L (22-30); Chloride 103 mmol/L (98-107); Glucose 93 mg/dL (74-99); Potassium 5.1 mmol/L (3.5-5.1); Sodium 141 mmol/L (137-145); Total Bilirubin 0.2 mg/dL (0.2-1.3); Total Protein 5.9 g/dL (6.3-8.2)
[2017-10-10 08:56] VITALS: BMI 33.1
[2017-10-10] MEDS: PANTOPRAZOLE 40 MG TABLET PO SCH (09:38)
[2017-10-10] MEDS: INSULIN ASPART 100 UNIT/ML 1 ML 10 ML VIAL SQ SCH ×4 (09:38→20:39)
[2017-10-10] MEDS: GEMFIBROZIL 600 MG TAB PO SCH ×2 (09:38→16:40)
[2017-10-10] MEDS: HEPARIN SODIUM,PORCINE 5,000 UNIT/ML 1 ML VIAL SQ SCH ×3 (09:38→23:24)
[2017-10-10] MEDS: CHOLECALCIFEROL 1,000 UNIT TAB PO SCH (09:39)
[2017-10-10] MEDS: LISINOPRIL 20 MG TAB PO SCH (09:39)
[2017-10-10] MEDS: HYDROCHLOROTHIAZIDE 12.5 MG CAP PO SCH (09:39)
[2017-10-10] MEDS: FERROUS SULFATE 325 MG TAB PO SCH ×2 (09:39→20:01)
[2017-10-10] MEDS: OXYBUTYNIN CHLORIDE 5 MG TAB PO SCH ×3 (09:40→20:41)
[2017-10-10] MEDS: metFORMIN 500 MG TAB PO SCH ×2 (09:40→20:00)
[2017-10-10 11:31] LABS: Glucose,Whole Blood 122 mg/dL (75-99)
--- NOTE | 2017-10-10 12:15 | P.PN ---
Subjective Progress Note Date: 10/10/17 This is a 62-year-old female with past medical history noted below who was discharged from the hospital 2 days ago after being treated for urosepsis and underwent cystoscopy with lithotripsy and double-J catheter placement to the left ureter. Patient was doing fairly well. She was discharged home on antibiotic with IV ceftriaxone secondary to bacteremia noted during last admission. She was getting antibiotics through a midline in the superficial vein in the left forearm. Yesterday her visiting nurse came in and the IV has infiltrated. She was sent to the emergency room for evaluation. She underwent ultrasound in the emergency room showing superficial phlebitis. She is currently admitted to the hospital to continue her IV antibiotic. She is doing fairly well otherwise. Patient does not have any concerns or complaints. 10/06/2017 patient still complaining of nausea and abdominal tenderness. Patient is also having low-grade temps as high as 99.9. CBC, blood cultures and urine culture has been ordered. Patient also states she has been having diarrhea for 2 days. C. diff negative. Patient currently getting Rocephin through peripheral line. Patient also complaining of some shortness of breath. On room air, oxygen saturation 93-95%. Chest x-ray has been ordered. Denies chest pain. 10/07/2017 Patient sitting up in bed still complaining of nausea and diarrhea. Patient had temperature of 100.0F last night. Dr. Campos has been consulted. Urine and blood cultures have been sent. White blood cell count 14.1 today. C. diff negative. Patient also having episodes of high sugars in the 200s during the day and morning blood sugars in the 60's. Sliding scale insulin with meals has been added and long-acting insulin has been decreased to 29 units. Patient states shortness of breath has significantly improved currently on room air, oxygen saturation 97%. Denies chest pain. Awaiting infectious disease recommendation for PICC line placement. 10/08/2017 patient sitting up in bed still complaining of left abdominal and left flank pain. Patient does state diarrhea has resolved. Patient's blood sugar better this a.m. Due to continuing left abdominal pain and left flank pain. Will order a kidney ultrasound and consult urology. Patient denies chest pain or shortness of breath. 10/09/2017 patient lying in bed with complaints of abdominal pain. Ultrasound of kidneys completed yesterday showing nonobstructing nephrolithiasis right kidney. Awaiting on urology consult. Patient did have fever up 100.1 morning patient currently still on Rocephin. White blood cell 16.6. Blood culture and Urine cultures are negative. Patient states that she is no longer having diarrhea. EKG has been ordered due to patient stating she has a history of palpitations. Denies chest pain at this time. Denies any shortness of breath. 10/10/2017 patient reports improvement in her lower abdominal pressure as well as her nausea. Patient reports seeing urology earlier this morning. She will also be seen by surgical service and computed tomography scan of the abdomen had shown evidence of a dilated gallbladder. Objective - Vital Signs Vital signs: Vital Signs Temp 98.0 F 10/10/17 06:09 Pulse 75 10/10/17 06:09 Resp 16 10/10/17 06:09 BP 131/72 10/10/17 06:09 Pulse Ox 97 10/10/17 06:09 Intake & Output 10/09/17 10/10/17 10/10/17 18:59 06:59 18:59 Intake Total 1200 240 Balance 1200 240 Weight 90.265 kg Intake: Oral 1200 240 Other: Voiding Method Toilet Toilet Toilet # Voids 2 1 # Bowel Movements 1 - Exam Head normocephalic Neck supple Lungs clear to auscultation bilaterally no wheezing or crackles Heart regular rate and rhythm S1-S2, no rub or gallop Abdomen is soft nontender nondistended positive bowel sounds no hepatosplenomegaly Extremities no edema Neuro alert and orientated to 3 - Labs CBC & Chem 7: 10/10/17 06:49 10/10/17 06:49 Labs: Abnormal Lab Results - Last 24 Hours (Table) 10/09/17 10/09/17 10/09/17 Range/Units 15:19 17:11 20:40 WBC (3.8-10.6) k/uL RBC (3.80-5.40) m/uL Hgb (11.4-16.0) gm/dL Hct (34.0-46.0) % RDW (11.5-15.5) % Plt Count (150-450) k/uL Neutrophils # (1.3-7.7) k/uL Monocytes # (0-1.0) k/uL POC Glucose (mg/dL) 263 H 157 H (75-99) mg/dL AST (14-36) U/L Total Protein (6.3-8.2) g/dL Albumin (3.5-5.0) g/dL Urine Protein 1+ H (Negative) Urine Blood Trace H (Negative) Ur Leukocyte Esterase Small H (Negative) Urine WBC 13 H (0-5) /hpf Urine Bacteria Rare H (None) /hpf Urine Mucus Rare H (None) /hpf 10/10/17 10/10/17 10/10/17 Range/Units 01:44 06:49 06:49 WBC 16.4 H (3.8-10.6) k/uL RBC 3.19 L (3.80-5.40) m/uL Hgb 9.2 L (11.4-16.0) gm/dL Hct 29.1 L (34.0-46.0) % RDW 16.2 H (11.5-15.5) % Plt Count 698 H (150-450) k/uL Neutrophils # 12.2 H (1.3-7.7) k/uL Monocytes # 1.2 H (0-1.0) k/uL POC Glucose (mg/dL) 141 H (75-99) mg/dL AST 11 L (14-36) U/L Total Protein 5.9 L (6.3-8.2) g/dL Albumin 2.9 L (3.5-5.0) g/dL Urine Protein (Negative) Urine Blood (Negative) Ur Leukocyte Esterase (Negative) Urine WBC (0-5) /hpf Urine Bacteria (None) /hpf Urine Mucus (None) /hpf 10/10/17 10/10/17 Range/Units 06:59 11:29 WBC (3.8-10.6) k/uL RBC (3.80-5.40) m/uL Hgb (11.4-16.0) gm/dL Hct (34.0-46.0) % RDW (11.5-15.5) % Plt Count (150-450) k/uL Neutrophils # (1.3-7.7) k/uL Monocytes # (0-1.0) k/uL POC Glucose (mg/dL) 103 H 122 H (75-99) mg/dL AST (14-36) U/L Total Protein (6.3-8.2) g/dL Albumin (3.5-5.0) g/dL Urine Protein (Negative) Urine Blood (Negative) Ur Leukocyte Esterase (Negative) Urine WBC (0-5) /hpf Urine Bacteria (None) /hpf Urine Mucus (None) /hpf Microbiology - Last 24 Hours (Table) 10/09/17 15:19 Urine Culture - Preliminary Urine,Voided 10/06/17 10:05 Blood Culture - Preliminary Blood No Growth after 72 hours Assessment and Plan Assessment: 1. Recent urosepsis with bacteremia and culture growing Proteus mirabilis. Patient was seen by infectious disease during last admission. She did not tolerate oral Cipro. She is currently finishing antibiotic course with IV ceftriaxone 2 g daily for total of 2 weeks. Patient currently having low grade temps along with nausesa and diarrhea. C-diff negative. Blood cultures , urine cultures and CBC has been ordered. Dr. Campos per infectious disease has been consulted. Per infectious disease patient will be given Rocephin 2 g daily in the hospital. No need for PICC or midline placement at this time. Patient will possibly be switched to oral Ceftrin upon discharge per ID Antibiotics and again adjusted by infectious disease due to increase in white count. Patient was started on Unasyn. She did have a temp of 100.1 yesterday. Computed tomography scan of the abdomen and pelvis completed showing a dilated gallbladder and concerns for acute cholecystitis. A surgical consult was placed. 2. Type 2 diabetes mellitus. Blood sugars are improving throughout the day however patient still had some hypoglycemia this morning. We'll decrease her Levemir to 26 units at bedtime. Continue sliding scale coverage 3. Essential hypertension: Blood pressure well-controlled currently on atenolol. Patient's hydrochlorothiazide and lisinopril have been reordered. 4. Nephrolithiasis with recent cystoscopy and dizzy at times he with double-J stent placement to the left ureter. He should still complaining of left abdominal and flank pain. Ultrasound of kidneys has been ordered. Dr. Aaron taveras urology has also been consulted. Ultrasound kidneys completed showing nonobstructing nephrolithiasis right kidney. 5. Underlying rheumatoid arthritis on methotrexate currently on hold secondary to underlying infection 6. Chronic iron deficiency anemia continue ferrous sulfate. GI prophylactic Protonix, DVT prophylactic heparin I performed an examination of the patient and discussed their management with the physician Contact Lens Curve Grinder. I have reviewed the Physician Contact L[employer] Curve Grinder's notes and agree with the documented findings and plan of care
--- NOTE | 2017-10-10 13:47 | P.GSCN ---
History of Present Illness Consult date: 10/10/17 Reason for Consult: Possible cholecystitis History of present illness: Patient minute to the hospital with phlebitis at a IV catheter site. She was recently admitted for urosepsis and had a left ureteral stent placed. During this hospitalization she has had intermittent fevers and a climbing white blood cell count. CAT scan was obtained yesterday which showed a distended gallbladder. No definite gallstones seen. The patient does complain of mild left flank plain radiating to the left lower quadrant. No nausea or vomiting. She was never told she had gallbladder problems previously. Patient is diabetic. Ultrasound gallbladder currently pending. Liver enzymes relatively normal. Review of Systems The patient denies any acute changes in vision or hearing, no dysphagia or odynophagia, no chest pain or shortness of breath, no dysuria, no headache, no runny nose, no rectal bleeding or melena, no unexplained weight loss Past Medical History Past Medical History: Diabetes Mellitus, Hypertension, Rheumatoid Arthritis (RA) Additional Past Medical History / Comment(s): neuropathy, scoliosis, kidney stones History of Any Multi-Drug Resistant Organisms: None Reported Past Surgical History: Breast Surgery Additional Past Surgical History / Comment(s): diagnostic laparoscopy, renal stent Past Anesthesia/Blood Transfusion Reactions: No Reported Reaction Past Psychological History: No Psychological Hx Reported Smoking Status: Former smoker Past Alcohol Use History: None Reported Past Drug Use History: None Reported Medications and Allergies Home Medications Medication Instructions Recorded Confirmed Type Atenolol [Tenormin] 12.5 mg PO DAILY 12/10/16 10/04/17 History EPINEPHrine (Auto Inject) [Epipen] 0.3 mg IM ONCE PRN #2 syringe 12/10/16 Rx Gemfibrozil [Lopid] 600 mg PO DAILY 12/10/16 10/04/17 History [place]-3 Fatty Acids/Fish Oil [Fish 1 cap PO DAILY 12/10/16 10/04/17 History Oil 1,000 mg Softgel] metFORMIN HCL [Glucophage] 1,000 mg PO BID 12/10/16 10/04/17 History Cholecalciferol (Vitamin D3) 2,000 unit PO DAILY 09/28/17 10/04/17 History [Vitamin D3] Ferrous Sulfate [Iron (65 MG 325 mg PO BID #60 tab 10/03/17 10/04/17 Rx Elemental)] Insulin Aspart [NovoLOG 0 unit SQ ACHS vial 10/03/17 10/04/17 Rx (formulary)] Insulin Glargine,Hum.rec.anlog 32 unit SQ HS #0 10/03/17 10/04/17 Rx [Lantus Solostar] Oxybutynin Chloride [Ditropan] 5 mg PO TID #21 tab 10/03/17 10/04/17 Rx cefTRIAXone [Rocephin] 2,000 mg IVP Q24HR #12 syringe 10/03/17 10/04/17 Rx HYDROcodone/APAP 5-325MG [[place] 1 tab PO Q4HR PRN 10/04/17 10/04/17 History 5-325] Allergies Allergy/AdvReac Type Severity Reaction Status Date / Time bee venom protein (honey bee) Allergy Rash/Hives Verified 10/04/17 17:58 Sulfa (Sulfonamide Allergy Unknown Verified 10/04/17 17:58 Antibiotics) Surgical - Exam Vital Signs Temp Pulse Resp BP Pulse Ox 98.8 F 103 H 18 154/75 98 10/04/17 13:20 10/04/17 13:20 10/04/17 13:20 10/04/17 13:20 10/04/17 13:20 Physical exam: General: Well-developed, well-nourished HEENT: Normocephalic, sclerae nonicteric Abdomen: Mild left flank tenderness, no right upper quadrant tenderness, nondistended Extremities: No edema Neuro: Alert and oriented Results - Labs 10/10/17 06:49 10/10/17 06:49 Abnormal Lab Results - Last 24 Hours (Table) 10/09/17 10/09/17 10/09/17 Range/Units 15:19 17:11 20:40 WBC (3.8-10.6) k/uL RBC (3.80-5.40) m/uL Hgb (11.4-16.0) gm/dL Hct (34.0-46.0) % RDW (11.5-15.5) % Plt Count (150-450) k/uL Neutrophils # (1.3-7.7) k/uL Monocytes # (0-1.0) k/uL POC Glucose (mg/dL) 263 H 157 H (75-99) mg/dL AST (14-36) U/L Total Protein (6.3-8.2) g/dL Albumin (3.5-5.0) g/dL Urine Protein 1+ H (Negative) Urine Blood Trace H (Negative) Ur Leukocyte Esterase Small H (Negative) Urine WBC 13 H (0-5) /hpf Urine Bacteria Rare H (None) /hpf Urine Mucus Rare H (None) /hpf 10/10/17 10/10/17 10/10/17 Range/Units 01:44 06:49 06:49 WBC 16.4 H (3.8-10.6) k/uL RBC 3.19 L (3.80-5.40) m/uL Hgb 9.2 L (11.4-16.0) gm/dL Hct 29.1 L (34.0-46.0) % RDW 16.2 H (11.5-15.5) % Plt Count 698 H (150-450) k/uL Neutrophils # 12.2 H (1.3-7.7) k/uL Monocytes # 1.2 H (0-1.0) k/uL POC Glucose (mg/dL) 141 H (75-99) mg/dL AST 11 L (14-36) U/L Total Protein 5.9 L (6.3-8.2) g/dL Albumin 2.9 L (3.5-5.0) g/dL Urine Protein (Negative) Urine Blood (Negative) Ur Leukocyte Esterase (Negative) Urine WBC (0-5) /hpf Urine Bacteria (None) /hpf Urine Mucus (None) /hpf 10/10/17 10/10/17 Range/Units 06:59 11:29 WBC (3.8-10.6) k/uL RBC (3.80-5.40) m/uL Hgb (11.4-16.0) gm/dL Hct (34.0-46.0) % RDW (11.5-15.5) % Plt Count (150-450) k/uL Neutrophils # (1.3-7.7) k/uL Monocytes # (0-1.0) k/uL POC Glucose (mg/dL) 103 H 122 H (75-99) mg/dL AST (14-36) U/L Total Protein (6.3-8.2) g/dL Albumin (3.5-5.0) g/dL Urine Protein (Negative) Urine Blood (Negative) Ur Leukocyte Esterase (Negative) Urine WBC (0-5) /hpf Urine Bacteria (None) /hpf Urine Mucus (None) /hpf Microbiology - Last 24 Hours (Table) 10/06/17 10:05 Blood Culture - Preliminary Blood No Growth after 96 hours 10/09/17 15:19 Urine Culture - Preliminary Urine,Voided Diabetes panel 10/10/17 Range/Units 06:49 Sodium 141 (137-145) mmol/L Potassium 5.1 (3.5-5.1) mmol/L Chloride 103 (98-107) mmol/L Carbon Dioxide 27 (22-30) mmol/L BUN 13 (7-17) mg/dL Creatinine 0.81 (0.52-1.04) mg/dL Glucose 93 (74-99) mg/dL Calcium 8.9 (8.4-10.2) mg/dL AST 11 L (14-36) U/L ALT 23 (9-52) U/L Alkaline Phosphatase 87 (38-126) U/L Total Protein 5.9 L (6.3-8.2) g/dL Albumin 2.9 L (3.5-5.0) g/dL Calcium panel 10/10/17 Range/Units 06:49 Calcium 8.9 (8.4-10.2) mg/dL Albumin 2.9 L (3.5-5.0) g/dL Pituitary panel 10/10/17 Range/Units 06:49 Sodium 141 (137-145) mmol/L Potassium 5.1 (3.5-5.1) mmol/L Chloride 103 (98-107) mmol/L Carbon Dioxide 27 (22-30) mmol/L BUN 13 (7-17) mg/dL Creatinine 0.81 (0.52-1.04) mg/dL Glucose 93 (74-99) mg/dL Calcium 8.9 (8.4-10.2) mg/dL Adrenal panel 10/10/17 Range/Units 06:49 Sodium 141 (137-145) mmol/L Potassium 5.1 (3.5-5.1) mmol/L Chloride 103 (98-107) mmol/L Carbon Dioxide 27 (22-30) mmol/L BUN 13 (7-17) mg/dL Creatinine 0.81 (0.52-1.04) mg/dL Glucose 93 (74-99) mg/dL Calcium 8.9 (8.4-10.2) mg/dL Total Bilirubin 0.2 (0.2-1.3) mg/dL AST 11 L (14-36) U/L ALT 23 (9-52) U/L Alkaline Phosphatase 87 (38-126) U/L Total Protein 5.9 L (6.3-8.2) g/dL Albumin 2.9 L (3.5-5.0) g/dL Assessment and Plan (1) Cholecystitis Narrative/Plan: Await abdominal ultrasound findings. Possible HIDA scan following that based on those results. Continue IV antibiotics. Current Visit: Yes Status: Acute Code(s): K81.9 - CHOLECYSTITIS, UNSPECIFIED SNOMED Code(s): 81532113
--- NOTE | 2017-10-10 15:06 | XR ---
EXAMINATION TYPE: XR chest 2V DATE OF EXAM: 10/10/2017 COMPARISON: Chest x-ray from 4 days ago. HISTORY: History of kidney infection and sepsis with new cough TECHNIQUE: Frontal and lateral views of the chest are obtained. FINDINGS: There is no focal air space opacity, pleural effusion, or pneumothorax seen. The cardiac silhouette size is within normal limits. There is some multilevel spurring in the spine present. Cont rast from recent CT is noted in visualized colon of the abdomen. IMPRESSION: No suspicious acute pulmonary process.
--- NOTE | 2017-10-10 15:12 | US ---
EXAMINATION TYPE: US abdomen limited DATE OF EXAM: 10/10/2017 COMPARISON: CT abdomen and pelvis from yesterday CLINICAL HISTORY: Evaluate gallbladder. Enlarged gallbladder seen on recent CT EXAM MEASUREMENTS: Liver Length: 14.2 cm Gallbladder Wall: 0.2 cm CBD: 0.6 cm Right Kidney: 10.3 x 4.7 x 5.0 cm Pancreas: limited by overlying midline bowel gas Liver: heterogeneous Gallbladder: hydropic with hyperechoic echoes along posterior wall Evidence for sonographic Meier's sign: no CBD: borderline dilated at 0.6cm Right Kidney: 0.5cm echogenic focus midpole Pancreas is suboptimally evaluated on images saved due to shadowing from overlying bowel gas but appe ared unremarkable on CT yesterday. Visualized liver is heterogeneously hyperechoic consistent with fa tty infiltration which correlates with CT. Gallbladder has distended margins but there are no shadowi ng mobile gallstones or pericholecystic fluid, or abnormal gallbladder wall thickening. Tiny degree o f sludge cannot be excluded on few of the images saved. IMPRESSION: Gallbladder has distended margins without shadowing mobile gallstones or secondary ultras ound evidence for acute cholecystitis.
[2017-10-10 17:23] LABS: Glucose,Whole Blood 204 mg/dL (75-99)
[2017-10-10] MEDS: ATENOLOL 12.5 MG TAB PO SCH (20:00)
[2017-10-10] MEDS: INSULIN DETEMIR 100 UNIT/ML 10 ML VIAL SQ SCH (20:39)
[2017-10-10 20:48] LABS: Glucose,Whole Blood 188 mg/dL (75-99)
--- NOTE | 2017-10-10 23:03 | PN ---
PROGRESS NOTE DATE OF SERVICE: 10/10/2017. REASON FOR FOLLOW UP: 1. Proteus mirabilis left sided bacteremia. 2. Question of cholecystitis. INTERVAL HISTORY: The patient is afebrile. She has been complaining of some pain to the left lower abdominal area. Denies having any chest pain, shortness of breath, cough. No nausea, no vomiting and no diarrhea. EXAMINATION: Blood pressure is 124/71 with a pulse of 76, temperature 98. She is 98% on room air. General description is a middle-aged female up in the bed in no distress. Respiratory system: Unlabored breathing. Clear to auscultation anteriorly. Heart S1, S2. Regular rate and rhythm. ABDOMEN: Soft. No right upper quadrant tenderness. No guarding or rigidity. LABS: Hemoglobin 9.2, white count 16.4 with a BUN of 13, creatinine 0.81. Repeat urine yesterday mainly positive, culture so far pending. Blood culture negative. DIAGNOSTIC IMPRESSION AND PLAN: Patient with Proteus mirabilis urinary tract infection secondary to left-sided pyelonephritis with hydronephrosis, status post stent placement with admission to hospital because of malfunctioning midline with perfusion with thrombosis and thyroid midline insertion. Now with a CT suspicious for cholecystitis. Clinically, no tenderness in the right upper quadrant area. HIDA scan has been ordered. Antibiotic with will be continued while waiting for the condition to stabilize. Continue supportive care. MMODL / IJN: [id number] /
[2017-10-11 05:23] LABS: Glucose,Whole Blood 121 mg/dL (75-99)
[2017-10-11] MEDS: oxyCODONE-APAP 5-325MG 1 EACH TAB PO PRN ×5 (05:25→23:18)
[2017-10-11] MEDS: AMPICILLIN-SULBACTAM 3 GM in SODIUM CHLORIDE 0.9% 100 ML IVPB SCH ×4 (05:25→23:22)
[2017-10-11 06:53] LABS: Glucose,Whole Blood 108 mg/dL (75-99)
[2017-10-11 08:24] LABS: Anisocytosis Slight; Basophils % (A) 0 %; Eosinophils # (A) 0.3 k/uL (0-0.7); Eosinophils % (A) 2 %; HCT 32.8 % (34.0-46.0); HGB 10.4 gm/dL (11.4-16.0); Hypochromasia Slight; Lymphocytes # (A) 2.2 k/uL (1.0-4.8); Lymphocytes % (A) 15 %; MCH 28.7 pg (25.0-35.0); MCHC 31.6 g/dL (31.0-37.0); MCV 90.8 fL (80.0-100.0); Mean Platelet Volume 8.4; Monocytes % (A) 7 %; Neutrophils # (A) 10.8 k/uL (1.3-7.7); Neutrophils % (A) 74 %; RBC 3.61 m/uL (3.80-5.40); RDW 16.5 % (11.5-15.5); WBC 14.5 k/uL (3.8-10.6)
[2017-10-11 08:36] LABS: Albumin 3.2 g/dL (3.5-5.0); Anion Gap 11 mmol/L; Carbon Dioxide 25 mmol/L (22-30); Chloride 104 mmol/L (98-107); Glucose 102 mg/dL (74-99); Sodium 140 mmol/L (137-145); Total Bilirubin 0.4 mg/dL (0.2-1.3); Total Protein 6.6 g/dL (6.3-8.2)
[2017-10-11 08:38] LABS: Potassium 5.1 mmol/L (3.5-5.1)
[2017-10-11] MEDS: INSULIN ASPART 100 UNIT/ML 1 ML 10 ML VIAL SQ SCH ×4 (08:38→21:22)
[2017-10-11 08:39] LABS: ALT 23 U/L (9-52); AST 17 U/L (14-36); Alkaline Phosphatase 91 U/L (38-126); Blood Urea Nitrogen 14 mg/dL (7-17)
[2017-10-11] MEDS: HEPARIN SODIUM,PORCINE 5,000 UNIT/ML 1 ML VIAL SQ SCH ×3 (08:40→23:22)
[2017-10-11] MEDS: GEMFIBROZIL 600 MG TAB PO SCH ×2 (08:40→17:42)
[2017-10-11] MEDS: PANTOPRAZOLE 40 MG TABLET PO SCH (08:40)
[2017-10-11] MEDS: HYDROCHLOROTHIAZIDE 12.5 MG CAP PO SCH (08:40)
[2017-10-11] MEDS: metFORMIN 500 MG TAB PO SCH ×2 (08:40→20:48)
[2017-10-11] MEDS: LISINOPRIL 20 MG TAB PO SCH (08:40)
[2017-10-11] MEDS: OXYBUTYNIN CHLORIDE 5 MG TAB PO SCH ×3 (08:40→20:48)
[2017-10-11] MEDS: CHOLECALCIFEROL 1,000 UNIT TAB PO SCH (08:40)
[2017-10-11] MEDS: FERROUS SULFATE 325 MG TAB PO SCH ×2 (08:40→20:48)
[2017-10-11 08:58] LABS: Poikilocytosis (M) Present
[2017-10-11 12:31] LABS: Glucose,Whole Blood 141 mg/dL (75-99)
--- NOTE | 2017-10-11 12:51 | P.PN ---
Subjective Progress Note Date: 10/11/17 Principal diagnosis: Evaluate for cholecystitis Patient doing well. No further fevers. White blood cell count 14.5. Her left- sided flank and lower quadrant pain is improved. Denies right upper quadrant or epigastric pain. Ultrasound showed no thickened wall and possibly some sludge. Objective - Vital Signs Vital signs: Vital Signs Temp 98.2 F 10/11/17 05:49 Pulse 72 10/11/17 05:49 Resp 16 10/11/17 05:49 BP 114/62 10/11/17 05:49 Pulse Ox 94 L 10/11/17 05:49 Intake & Output 10/10/17 10/11/17 10/11/17 18:59 06:59 18:59 Intake Total 240 450 Balance 240 450 Weight 90.265 kg 90.265 kg Intake: Oral 240 450 Other: Voiding Method Toilet Toilet Toilet # Voids 3 1 # Bowel Movements 1 - Exam Abdomen: Soft, nondistended, mild left-sided tenderness - Labs CBC & Chem 7: 10/11/17 07:50 10/11/17 07:50 Labs: Abnormal Lab Results - Last 24 Hours (Table) 10/10/17 10/10/17 10/11/17 Range/Units 17:22 20:34 05:20 WBC (3.8-10.6) k/uL RBC (3.80-5.40) m/uL Hgb (11.4-16.0) gm/dL Hct (34.0-46.0) % RDW (11.5-15.5) % Neutrophils # (1.3-7.7) k/uL Glucose (74-99) mg/dL POC Glucose (mg/dL) 204 H 188 H 121 H (75-99) mg/dL Albumin (3.5-5.0) g/dL 10/11/17 10/11/17 10/11/17 Range/Units 06:50 07:50 07:50 WBC 14.5 H (3.8-10.6) k/uL RBC 3.61 L (3.80-5.40) m/uL Hgb 10.4 L (11.4-16.0) gm/dL Hct 32.8 L (34.0-46.0) % RDW 16.5 H (11.5-15.5) % Neutrophils # 10.8 H (1.3-7.7) k/uL Glucose 102 H (74-99) mg/dL POC Glucose (mg/dL) 108 H (75-99) mg/dL Albumin 3.2 L (3.5-5.0) g/dL 10/11/17 Range/Units 12:25 WBC (3.8-10.6) k/uL RBC (3.80-5.40) m/uL Hgb (11.4-16.0) gm/dL Hct (34.0-46.0) % RDW (11.5-15.5) % Neutrophils # (1.3-7.7) k/uL Glucose (74-99) mg/dL POC Glucose (mg/dL) 141 H (75-99) mg/dL Albumin (3.5-5.0) g/dL Microbiology - Last 24 Hours (Table) 10/06/17 10:05 Blood Culture - Preliminary Blood No Growth after 120 hours 10/09/17 15:19 Urine Culture - Final Urine,Voided 10/09/17 14:24 Blood Culture - Preliminary Blood No Growth after 24 hours Assessment and Plan (1) Cholecystitis Narrative/Plan: Patient with distended gallbladder by CAT scan and ultrasound. No definite inflammatory changes. Patient is asymptomatic as it pertains to any sort of epigastric or right upper quadrant pain. Suspect fevers from the underlying pyelonephritis particularly given the CAT scan findings of inflammation around the kidney. Options of HIDA scan reviewed. The patient would like to avoid that if possible. Will plan observation as it pertains to the gallbladder. Will follow with you while patient admitted. Current Visit: Yes Status: Acute Code(s): K81.9 - CHOLECYSTITIS, UNSPECIFIED SNOMED Code(s): 48606131
--- NOTE | 2017-10-11 14:35 | P.PN ---
Subjective Progress Note Date: 10/11/17 This is a 62-year-old female with past medical history noted below who was discharged from the hospital 2 days ago after being treated for urosepsis and underwent cystoscopy with lithotripsy and double-J catheter placement to the left ureter. Patient was doing fairly well. She was discharged home on antibiotic with IV ceftriaxone secondary to bacteremia noted during last admission. She was getting antibiotics through a midline in the superficial vein in the left forearm. Yesterday her visiting nurse came in and the IV has infiltrated. She was sent to the emergency room for evaluation. She underwent ultrasound in the emergency room showing superficial phlebitis. She is currently admitted to the hospital to continue her IV antibiotic. She is doing fairly well otherwise. Patient does not have any concerns or complaints. 10/06/2017 patient still complaining of nausea and abdominal tenderness. Patient is also having low-grade temps as high as 99.9. CBC, blood cultures and urine culture has been ordered. Patient also states she has been having diarrhea for 2 days. C. diff negative. Patient currently getting Rocephin through peripheral line. Patient also complaining of some shortness of breath. On room air, oxygen saturation 93-95%. Chest x-ray has been ordered. Denies chest pain. 10/07/2017 Patient sitting up in bed still complaining of nausea and diarrhea. Patient had temperature of 100.0F last night. Dr. Campos has been consulted. Urine and blood cultures have been sent. White blood cell count 14.1 today. C. diff negative. Patient also having episodes of high sugars in the 200s during the day and morning blood sugars in the 60's. Sliding scale insulin with meals has been added and long-acting insulin has been decreased to 29 units. Patient states shortness of breath has significantly improved currently on room air, oxygen saturation 97%. Denies chest pain. Awaiting infectious disease recommendation for PICC line placement. 10/08/2017 patient sitting up in bed still complaining of left abdominal and left flank pain. Patient does state diarrhea has resolved. Patient's blood sugar better this a.m. Due to continuing left abdominal pain and left flank pain. Will order a kidney ultrasound and consult urology. Patient denies chest pain or shortness of breath. 10/09/2017 patient lying in bed with complaints of abdominal pain. Ultrasound of kidneys completed yesterday showing nonobstructing nephrolithiasis right kidney. Awaiting on urology consult. Patient did have fever up 100.1 morning patient currently still on Rocephin. White blood cell 16.6. Blood culture and Urine cultures are negative. Patient states that she is no longer having diarrhea. EKG has been ordered due to patient stating she has a history of palpitations. Denies chest pain at this time. Denies any shortness of breath. 10/10/2017 patient reports improvement in her lower abdominal pressure as well as her nausea. Patient reports seeing urology earlier this morning. She will also be seen by surgical service and computed tomography scan of the abdomen had shown evidence of a dilated gallbladder. 10/11/2017 patient is still complaining of left flank pain denies any pain in the right upper quadrant there is no fever or chills. Still some nausea no vomiting no cough no chest pain or shortness of breath. Case discussed with Dr. Nettles today. Objective - Vital Signs Vital signs: Vital Signs Temp 98.2 F 10/11/17 05:49 Pulse 72 10/11/17 05:49 Resp 16 10/11/17 05:49 BP 114/62 10/11/17 05:49 Pulse Ox 94 L 10/11/17 05:49 Intake & Output 10/10/17 10/11/17 10/11/17 18:59 06:59 18:59 Intake Total 240 450 Balance 240 450 Weight 90.265 kg 90.265 kg Intake: Oral 240 450 Other: Voiding Method Toilet Toilet Toilet # Voids 3 1 3 # Bowel Movements 1 - Exam Head normocephalic and atraumatic Neck supple no JVD no goiter Lungs clear to auscultation bilaterally no wheezing or crackles Heart regular rate and rhythm S1-S2, no rub or gallop Abdomen is soft nontender nondistended positive bowel sounds no hepatosplenomegaly Extremities no edema Neuro alert and orientated to 3 - Labs CBC & Chem 7: 10/11/17 07:50 10/11/17 07:50 Labs: Abnormal Lab Results - Last 24 Hours (Table) 10/10/17 10/10/17 10/11/17 Range/Units 17:22 20:34 05:20 WBC (3.8-10.6) k/uL RBC (3.80-5.40) m/uL Hgb (11.4-16.0) gm/dL Hct (34.0-46.0) % RDW (11.5-15.5) % Neutrophils # (1.3-7.7) k/uL Glucose (74-99) mg/dL POC Glucose (mg/dL) 204 H 188 H 121 H (75-99) mg/dL Albumin (3.5-5.0) g/dL 10/11/17 10/11/17 10/11/17 Range/Units 06:50 07:50 07:50 WBC 14.5 H (3.8-10.6) k/uL RBC 3.61 L (3.80-5.40) m/uL Hgb 10.4 L (11.4-16.0) gm/dL Hct 32.8 L (34.0-46.0) % RDW 16.5 H (11.5-15.5) % Neutrophils # 10.8 H (1.3-7.7) k/uL Glucose 102 H (74-99) mg/dL POC Glucose (mg/dL) 108 H (75-99) mg/dL Albumin 3.2 L (3.5-5.0) g/dL 10/11/17 Range/Units 12:25 WBC (3.8-10.6) k/uL RBC (3.80-5.40) m/uL Hgb (11.4-16.0) gm/dL Hct (34.0-46.0) % RDW (11.5-15.5) % Neutrophils # (1.3-7.7) k/uL Glucose (74-99) mg/dL POC Glucose (mg/dL) 141 H (75-99) mg/dL Albumin (3.5-5.0) g/dL Microbiology - Last 24 Hours (Table) 10/06/17 10:05 Blood Culture - Preliminary Blood No Growth after 120 hours 10/09/17 15:19 Urine Culture - Final Urine,Voided 10/09/17 14:24 Blood Culture - Preliminary Blood No Growth after 24 hours Assessment and Plan Plan: 1. Recent urosepsis with bacteremia and culture growing Proteus mirabilis. Patient was seen by infectious disease during last admission. She did not tolerate oral Cipro. She is currently finishing antibiotic course with IV ceftriaxone 2 g daily for total of 2 weeks. Continue with IV antibiotic at this time. 2. Type 2 diabetes mellitus. Blood sugars are improving throughout the day however patient still had some hypoglycemia this morning. We'll decrease her Levemir to 26 units at bedtime. Continue sliding scale coverage 3. Essential hypertension: Blood pressure well-controlled currently on atenolol. Patient's hydrochlorothiazide and lisinopril have been reordered. 4. Nephrolithiasis with recent cystoscopy and dizzy at times he with double-J stent placement to the left ureter. He should still complaining of left abdominal and flank pain. Ultrasound of kidneys has been ordered. Dr. Walker per urology has also been consulted. Ultrasound kidneys completed showing nonobstructing nephrolithiasis right kidney. 5. Underlying rheumatoid arthritis on methotrexate currently on hold secondary to underlying infection 6. Chronic iron deficiency anemia continue ferrous sulfate. GI prophylactic Protonix, DVT prophylactic heparin
[2017-10-11 17:19] LABS: Glucose,Whole Blood 197 mg/dL (75-99)
[2017-10-11] MEDS: ATENOLOL 12.5 MG TAB PO SCH (20:48)
[2017-10-11 21:05] LABS: Glucose,Whole Blood 284 mg/dL (75-99)
[2017-10-11] MEDS: INSULIN DETEMIR 100 UNIT/ML 10 ML VIAL SQ SCH (21:22)
[2017-10-12] MEDS: AMPICILLIN-SULBACTAM 3 GM in SODIUM CHLORIDE 0.9% 100 ML IVPB SCH ×3 (06:00→17:40)
[2017-10-12] MEDS: oxyCODONE-APAP 5-325MG 1 EACH TAB PO PRN ×4 (06:02→21:51)
[2017-10-12 06:57] LABS: Glucose,Whole Blood 111 mg/dL (75-99)
[2017-10-12] MEDS: INSULIN ASPART 100 UNIT/ML 1 ML 10 ML VIAL SQ SCH ×4 (07:24→21:49)
--- NOTE | 2017-10-12 08:35 | P.PN ---
Subjective Progress Note Date: 10/12/17 Principal diagnosis: Evaluate for cholecystitis Patient feels well. Denies pain. She is afebrile. Morning labs pending. Objective - Vital Signs Vital signs: Vital Signs Temp 98.2 F 10/12/17 06:30 Pulse 82 10/12/17 06:30 Resp 17 10/12/17 06:30 BP 129/60 10/12/17 06:30 Pulse Ox 98 10/12/17 06:30 Intake & Output 10/11/17 10/12/17 10/12/17 18:59 06:59 18:59 Weight 90.265 kg Other: Voiding Method Toilet Toilet # Voids 3 1 - Exam Abdomen: Soft, nondistended, mild left-sided tenderness - Labs CBC & Chem 7: 10/11/17 07:50 10/11/17 07:50 Labs: Abnormal Lab Results - Last 24 Hours (Table) 10/11/17 10/11/17 10/11/17 Range/Units 07:50 07:50 12:25 WBC 14.5 H (3.8-10.6) k/uL RBC 3.61 L (3.80-5.40) m/uL Hgb 10.4 L (11.4-16.0) gm/dL Hct 32.8 L (34.0-46.0) % RDW 16.5 H (11.5-15.5) % Neutrophils # 10.8 H (1.3-7.7) k/uL Glucose 102 H (74-99) mg/dL POC Glucose (mg/dL) 141 H (75-99) mg/dL Albumin 3.2 L (3.5-5.0) g/dL 10/11/17 10/11/17 10/12/17 Range/Units 17:18 20:58 06:55 WBC (3.8-10.6) k/uL RBC (3.80-5.40) m/uL Hgb (11.4-16.0) gm/dL Hct (34.0-46.0) % RDW (11.5-15.5) % Neutrophils # (1.3-7.7) k/uL Glucose (74-99) mg/dL POC Glucose (mg/dL) 197 H 284 H 111 H (75-99) mg/dL Albumin (3.5-5.0) g/dL Microbiology - Last 24 Hours (Table) 10/09/17 14:24 Blood Culture - Preliminary Blood No Growth after 48 hours 10/06/17 10:05 Blood Culture - Preliminary Blood No Growth after 120 hours Assessment and Plan (1) Cholecystitis Narrative/Plan: Await morning labs. Continue antibiotics. No surgical intervention planned at this time. We'll sign off. Please contact if needed. Current Visit: Yes Status: Acute Code(s): K81.9 - CHOLECYSTITIS, UNSPECIFIED SNOMED Code(s): 76406024
[2017-10-12] MEDS: HYDROCHLOROTHIAZIDE 12.5 MG CAP PO SCH (09:08)
[2017-10-12] MEDS: GEMFIBROZIL 600 MG TAB PO SCH ×2 (09:08→16:25)
[2017-10-12] MEDS: metFORMIN 500 MG TAB PO SCH ×2 (09:08→21:48)
[2017-10-12] MEDS: FERROUS SULFATE 325 MG TAB PO SCH ×2 (09:08→21:48)
[2017-10-12] MEDS: OXYBUTYNIN CHLORIDE 5 MG TAB PO SCH ×3 (09:08→21:49)
[2017-10-12] MEDS: HEPARIN SODIUM,PORCINE 5,000 UNIT/ML 1 ML VIAL SQ SCH ×2 (09:08→16:24)
[2017-10-12] MEDS: LISINOPRIL 20 MG TAB PO SCH (09:08)
[2017-10-12] MEDS: PANTOPRAZOLE 40 MG TABLET PO SCH (09:09)
[2017-10-12] MEDS: CHOLECALCIFEROL 1,000 UNIT TAB PO SCH (09:09)
[2017-10-12 09:41] LABS: Anisocytosis Slight; Basophils # (A) 0.1 k/uL (0-0.2); Basophils % (A) 0 %; Eosinophils # (A) 0.3 k/uL (0-0.7); Eosinophils % (A) 2 %; HCT 29.9 % (34.0-46.0); HGB 9.2 gm/dL (11.4-16.0); Hypochromasia Slight; Lymphocytes # (A) 1.9 k/uL (1.0-4.8); Lymphocytes % (A) 15 %; MCH 28.1 pg (25.0-35.0); MCHC 30.6 g/dL (31.0-37.0); MCV 91.8 fL (80.0-100.0); Mean Platelet Volume 6.6; Monocytes # (A) 0.6 k/uL (0-1.0); Monocytes % (A) 5 %; Neutrophils # (A) 9.8 k/uL (1.3-7.7); Neutrophils % (A) 76 %; Platelet Count 739 k/uL (150-450); RBC 3.25 m/uL (3.80-5.40); WBC 12.9 k/uL (3.8-10.6)
[2017-10-12 09:54] LABS: ALT 21 U/L (9-52); AST 10 U/L (14-36); Albumin 2.9 g/dL (3.5-5.0); Alkaline Phosphatase 85 U/L (38-126); Anion Gap 12 mmol/L; Blood Urea Nitrogen 14 mg/dL (7-17); Calcium 8.7 mg/dL (8.4-10.2); Carbon Dioxide 24 mmol/L (22-30); Chloride 104 mmol/L (98-107); Glucose 207 mg/dL (74-99); Potassium 4.7 mmol/L (3.5-5.1); Sodium 140 mmol/L (137-145); Total Bilirubin 0.2 mg/dL (0.2-1.3); Total Protein 5.9 g/dL (6.3-8.2)
[2017-10-12 11:36] LABS: Glucose,Whole Blood 171 mg/dL (75-99)
--- NOTE | 2017-10-12 15:27 | P.PN ---
Subjective Progress Note Date: 10/12/17 This is a 62-year-old female with past medical history noted below who was discharged from the hospital 2 days ago after being treated for urosepsis and underwent cystoscopy with lithotripsy and double-J catheter placement to the left ureter. Patient was doing fairly well. She was discharged home on antibiotic with IV ceftriaxone secondary to bacteremia noted during last admission. She was getting antibiotics through a midline in the superficial vein in the left forearm. Yesterday her visiting nurse came in and the IV has infiltrated. She was sent to the emergency room for evaluation. She underwent ultrasound in the emergency room showing superficial phlebitis. She is currently admitted to the hospital to continue her IV antibiotic. She is doing fairly well otherwise. Patient does not have any concerns or complaints. 10/06/2017 patient still complaining of nausea and abdominal tenderness. Patient is also having low-grade temps as high as 99.9. CBC, blood cultures and urine culture has been ordered. Patient also states she has been having diarrhea for 2 days. C. diff negative. Patient currently getting Rocephin through peripheral line. Patient also complaining of some shortness of breath. On room air, oxygen saturation 93-95%. Chest x-ray has been ordered. Denies chest pain. 10/07/2017 Patient sitting up in bed still complaining of nausea and diarrhea. Patient had temperature of 100.0F last night. Dr. Campos has been consulted. Urine and blood cultures have been sent. White blood cell count 14.1 today. C. diff negative. Patient also having episodes of high sugars in the 200s during the day and morning blood sugars in the 60's. Sliding scale insulin with meals has been added and long-acting insulin has been decreased to 29 units. Patient states shortness of breath has significantly improved currently on room air, oxygen saturation 97%. Denies chest pain. Awaiting infectious disease recommendation for PICC line placement. 10/08/2017 patient sitting up in bed still complaining of left abdominal and left flank pain. Patient does state diarrhea has resolved. Patient's blood sugar better this a.m. Due to continuing left abdominal pain and left flank pain. Will order a kidney ultrasound and consult urology. Patient denies chest pain or shortness of breath. 10/09/2017 patient lying in bed with complaints of abdominal pain. Ultrasound of kidneys completed yesterday showing nonobstructing nephrolithiasis right kidney. Awaiting on urology consult. Patient did have fever up 100.1 morning patient currently still on Rocephin. White blood cell 16.6. Blood culture and Urine cultures are negative. Patient states that she is no longer having diarrhea. EKG has been ordered due to patient stating she has a history of palpitations. Denies chest pain at this time. Denies any shortness of breath. 10/10/2017 patient reports improvement in her lower abdominal pressure as well as her nausea. Patient reports seeing urology earlier this morning. She will also be seen by surgical service and computed tomography scan of the abdomen had shown evidence of a dilated gallbladder. 10/11/2017 patient is still complaining of left flank pain denies any pain in the right upper quadrant there is no fever or chills. Still some nausea no vomiting no cough no chest pain or shortness of breath. Case discussed with Dr. Nettles today. On 10/12/2017 patient is still complaining of left flank pain otherwise no significant complaints at this time white blood count is coming down gradually patient is afebrile Objective - Vital Signs Vital signs: Vital Signs Temp 97.7 F 10/12/17 15:00 Pulse 90 10/12/17 15:00 Resp 14 10/12/17 15:00 BP 117/63 10/12/17 15:00 Pulse Ox 95 10/12/17 15:00 Intake & Output 10/11/17 10/12/17 10/12/17 18:59 06:59 18:59 Weight 90.265 kg Other: Voiding Method Toilet Toilet # Voids 3 1 2 - Exam Head normocephalic and atraumatic Neck supple no JVD no goiter Lungs clear to auscultation bilaterally no wheezing or crackles Heart regular rate and rhythm S1-S2, no rub or gallop Abdomen is soft nontender nondistended positive bowel sounds no hepatosplenomegaly Extremities no edema Neuro alert and orientated to 3 - Labs CBC & Chem 7: 10/12/17 09:08 10/12/17 09:08 Labs: Abnormal Lab Results - Last 24 Hours (Table) 10/11/17 10/11/17 10/12/17 Range/Units 17:18 20:58 06:55 WBC (3.8-10.6) k/uL RBC (3.80-5.40) m/uL Hgb (11.4-16.0) gm/dL Hct (34.0-46.0) % MCHC (31.0-37.0) g/dL RDW (11.5-15.5) % Plt Count (150-450) k/uL Neutrophils # (1.3-7.7) k/uL Glucose (74-99) mg/dL POC Glucose (mg/dL) 197 H 284 H 111 H (75-99) mg/dL AST (14-36) U/L Total Protein (6.3-8.2) g/dL Albumin (3.5-5.0) g/dL 10/12/17 10/12/17 10/12/17 Range/Units 09:08 09:08 11:34 WBC 12.9 H (3.8-10.6) k/uL RBC 3.25 L (3.80-5.40) m/uL Hgb 9.2 L (11.4-16.0) gm/dL Hct 29.9 L (34.0-46.0) % MCHC 30.6 L (31.0-37.0) g/dL RDW 16.0 H (11.5-15.5) % Plt Count 739 H (150-450) k/uL Neutrophils # 9.8 H (1.3-7.7) k/uL Glucose 207 H (74-99) mg/dL POC Glucose (mg/dL) 171 H (75-99) mg/dL AST 10 L (14-36) U/L Total Protein 5.9 L (6.3-8.2) g/dL Albumin 2.9 L (3.5-5.0) g/dL Microbiology - Last 24 Hours (Table) 10/06/17 10:05 Blood Culture - Final Blood No Growth after 144 hours 10/09/17 14:24 Blood Culture - Preliminary Blood No Growth after 48 hours Assessment and Plan Plan: 1. Recent urosepsis with bacteremia and culture growing Proteus mirabilis. Patient was seen by infectious disease during last admission. She did not tolerate oral Cipro. She is currently finishing antibiotic course with IV ceftriaxone 2 g daily for total of 2 weeks. Continue with IV antibiotic at this time. 2. Type 2 diabetes mellitus. Blood sugars are improving throughout the day however patient still had some hypoglycemia this morning. We'll decrease her Levemir to 26 units at bedtime. Continue sliding scale coverage 3. Essential hypertension: Blood pressure well-controlled currently on atenolol. Patient's hydrochlorothiazide and lisinopril have been reordered. 4. Nephrolithiasis with recent cystoscopy and dizzy at times he with double-J stent placement to the left ureter. He should still complaining of left abdominal and flank pain. Ultrasound of kidneys has been ordered. Dr. Walker per urology has also been consulted. Ultrasound kidneys completed showing nonobstructing nephrolithiasis right kidney. 5. Underlying rheumatoid arthritis on methotrexate currently on hold secondary to underlying infection 6. Chronic iron deficiency anemia continue ferrous sulfate. GI prophylactic Protonix, DVT prophylactic heparin Continue with current antibiotic at this time will discuss discharge plans with infectious disease tomorrow
[2017-10-12 17:13] LABS: Glucose,Whole Blood 133 mg/dL (75-99)
[2017-10-12 21:16] LABS: Glucose,Whole Blood 235 mg/dL (75-99)
[2017-10-12] MEDS: ATENOLOL 12.5 MG TAB PO SCH (21:48)
[2017-10-12] MEDS: INSULIN DETEMIR 100 UNIT/ML 10 ML VIAL SQ SCH (21:50)
[2017-10-13] MEDS: AMPICILLIN-SULBACTAM 3 GM in SODIUM CHLORIDE 0.9% 100 ML IVPB SCH ×4 (00:01→17:57)
[2017-10-13] MEDS: HEPARIN SODIUM,PORCINE 5,000 UNIT/ML 1 ML VIAL SQ SCH ×3 (00:01→16:21)
[2017-10-13 02:01] LABS: Glucose,Whole Blood 169 mg/dL (75-99)
[2017-10-13] MEDS: oxyCODONE-APAP 5-325MG 1 EACH TAB PO PRN ×5 (02:20→21:07)
--- NOTE | 2017-10-13 06:49 | PN ---
PROGRESS NOTE DATE OF SERVICE: 10/12/2014. REASON FOR FOLLOWUP: Proteus mirabilis pyelonephritis and persistent leukocytosis. INTERVAL HISTORY: The patient is afebrile. She is complaining of some pain to the left flank area. The patient denies any chest pain, shortness of breath or cough. No diarrhea. No urinary symptoms. EXAMINATION: Blood pressure 124/58 with a pulse of 89, temperature 97.1. She is 96% on room air. General description is a middle-aged female up in the bed in no distress. RESPIRATORY SYSTEM: Unlabored breathing with decreased breath sounds at base. No wheeze. HEART: S1, S2. Regular rate and rhythm. ABDOMEN: Soft, no tenderness. No guarding or rigidity. EXTREMITIES: No edema feet. LABS: White count down to 12.9 with BUN of 14 and creatinine 0.75. The patient did have a repeat UA on October 09 that has been negative so far. Blood culture negative. DIAGNOSTIC IMPRESSION AND PLAN: Patient with Proteus mirabilis complicated urinary tract infection with underlying infection has been adequately treated. She received more than 2 weeks of IV antibiotic therapy. White count showing downward trend and continues to improve. To finish therapy with short course of oral Augmentin with close outpatient followup. MMODL / IJN: [id number] /
[2017-10-13 07:13] LABS: Glucose,Whole Blood 109 mg/dL (75-99)
[2017-10-13 07:39] LABS: Basophils # (A) 0.1 k/uL (0-0.2); Basophils % (A) 1 %; Eosinophils # (A) 0.3 k/uL (0-0.7); Eosinophils % (A) 2 %; HCT 30.8 % (34.0-46.0); HGB 9.5 gm/dL (11.4-16.0); Hypochromasia Slight; Lymphocytes # (A) 2.5 k/uL (1.0-4.8); Lymphocytes % (A) 22 %; MCH 28.2 pg (25.0-35.0); MCHC 30.9 g/dL (31.0-37.0); MCV 91.4 fL (80.0-100.0); Mean Platelet Volume 6.4; Monocytes # (A) 0.7 k/uL (0-1.0); Monocytes % (A) 6 %; Neutrophils % (A) 68 %; Platelet Count 640 k/uL (150-450); RBC 3.37 m/uL (3.80-5.40); RDW 15.7 % (11.5-15.5); WBC 11.8 k/uL (3.8-10.6)
[2017-10-13] MEDS: INSULIN ASPART 100 UNIT/ML 1 ML 10 ML VIAL SQ SCH ×4 (07:48→21:06)
[2017-10-13] MEDS: PANTOPRAZOLE 40 MG TABLET PO SCH (08:00)
[2017-10-13] MEDS: GEMFIBROZIL 600 MG TAB PO SCH ×2 (08:00→16:21)
[2017-10-13] MEDS: HYDROCHLOROTHIAZIDE 12.5 MG CAP PO SCH (08:01)
[2017-10-13] MEDS: FERROUS SULFATE 325 MG TAB PO SCH ×2 (08:01→21:00)
[2017-10-13] MEDS: OXYBUTYNIN CHLORIDE 5 MG TAB PO SCH ×3 (08:01→21:00)
[2017-10-13] MEDS: metFORMIN 500 MG TAB PO SCH ×2 (08:01→21:00)
[2017-10-13] MEDS: LISINOPRIL 20 MG TAB PO SCH (08:01)
[2017-10-13] MEDS: CHOLECALCIFEROL 1,000 UNIT TAB PO SCH (08:01)
[2017-10-13 08:07] LABS: ALT 22 U/L (9-52); AST 10 U/L (14-36); Alkaline Phosphatase 78 U/L (38-126); Anion Gap 12 mmol/L; Blood Urea Nitrogen 13 mg/dL (7-17); Calcium 8.9 mg/dL (8.4-10.2); Carbon Dioxide 24 mmol/L (22-30); Chloride 106 mmol/L (98-107); Glucose 99 mg/dL (74-99); Potassium 4.8 mmol/L (3.5-5.1); Sodium 142 mmol/L (137-145); Total Bilirubin 0.2 mg/dL (0.2-1.3); Total Protein 6.1 g/dL (6.3-8.2)
[2017-10-13 11:27] LABS: Glucose,Whole Blood 124 mg/dL (75-99)
--- NOTE | 2017-10-13 12:36 | P.PN ---
Subjective Progress Note Date: 10/13/17 This is a 62-year-old female with past medical history noted below who was discharged from the hospital 2 days ago after being treated for urosepsis and underwent cystoscopy with lithotripsy and double-J catheter placement to the left ureter. Patient was doing fairly well. She was discharged home on antibiotic with IV ceftriaxone secondary to bacteremia noted during last admission. She was getting antibiotics through a midline in the superficial vein in the left forearm. Yesterday her visiting nurse came in and the IV has infiltrated. She was sent to the emergency room for evaluation. She underwent ultrasound in the emergency room showing superficial phlebitis. She is currently admitted to the hospital to continue her IV antibiotic. She is doing fairly well otherwise. Patient does not have any concerns or complaints. 10/06/2017 patient still complaining of nausea and abdominal tenderness. Patient is also having low-grade temps as high as 99.9. CBC, blood cultures and urine culture has been ordered. Patient also states she has been having diarrhea for 2 days. C. diff negative. Patient currently getting Rocephin through peripheral line. Patient also complaining of some shortness of breath. On room air, oxygen saturation 93-95%. Chest x-ray has been ordered. Denies chest pain. 10/07/2017 Patient sitting up in bed still complaining of nausea and diarrhea. Patient had temperature of 100.0F last night. Dr. Campos has been consulted. Urine and blood cultures have been sent. White blood cell count 14.1 today. C. diff negative. Patient also having episodes of high sugars in the 200s during the day and morning blood sugars in the 60's. Sliding scale insulin with meals has been added and long-acting insulin has been decreased to 29 units. Patient states shortness of breath has significantly improved currently on room air, oxygen saturation 97%. Denies chest pain. Awaiting infectious disease recommendation for PICC line placement. 10/08/2017 patient sitting up in bed still complaining of left abdominal and left flank pain. Patient does state diarrhea has resolved. Patient's blood sugar better this a.m. Due to continuing left abdominal pain and left flank pain. Will order a kidney ultrasound and consult urology. Patient denies chest pain or shortness of breath. 10/09/2017 patient lying in bed with complaints of abdominal pain. Ultrasound of kidneys completed yesterday showing nonobstructing nephrolithiasis right kidney. Awaiting on urology consult. Patient did have fever up 100.1 morning patient currently still on Rocephin. White blood cell 16.6. Blood culture and Urine cultures are negative. Patient states that she is no longer having diarrhea. EKG has been ordered due to patient stating she has a history of palpitations. Denies chest pain at this time. Denies any shortness of breath. 10/10/2017 patient reports improvement in her lower abdominal pressure as well as her nausea. Patient reports seeing urology earlier this morning. She will also be seen by surgical service and computed tomography scan of the abdomen had shown evidence of a dilated gallbladder. 10/11/2017 patient is still complaining of left flank pain denies any pain in the right upper quadrant there is no fever or chills. Still some nausea no vomiting no cough no chest pain or shortness of breath. Case discussed with Dr. Nettles today. On 10/12/2017 patient is still complaining of left flank pain otherwise no significant complaints at this time white blood count is coming down gradually patient is afebrile 10/13/2017 patient is still complaining of left flank pain. White blood cell count 11.8. She remains afebrile. Denies diarrhea, nausea or vomiting. Denies shortness breath or chest pain at this time. Discharge hopefully tomorrow. Per infectious disease patient to finish therapy with short course of oral Augmentin with close outpatient follow-up. Objective - Vital Signs Vital signs: Vital Signs Temp 97.6 F 10/13/17 06:10 Pulse 71 10/13/17 06:10 Resp 16 10/13/17 06:10 BP 112/65 10/13/17 06:10 Pulse Ox 96 10/13/17 06:10 Intake & Output 10/12/17 10/13/17 10/13/17 18:59 06:59 18:59 Other: Voiding Method Toilet Toilet # Voids 2 2 - Exam Head normocephalic Neck supple Lungs clear to auscultation bilaterally no wheezing or crackles Heart regular rate and rhythm S1-S2, no rub or gallop Abdomen is soft with some left-sided tenderness. nondistended positive bowel sounds no hepatosplenomegaly Extremities no edema Neuro alert and orientated to 3 - Labs CBC & Chem 7: 10/13/17 07:03 10/13/17 07:03 Labs: Abnormal Lab Results - Last 24 Hours (Table) 10/12/17 10/12/17 10/13/17 Range/Units 17:10 20:53 01:57 WBC (3.8-10.6) k/uL RBC (3.80-5.40) m/uL Hgb (11.4-16.0) gm/dL Hct (34.0-46.0) % MCHC (31.0-37.0) g/dL RDW (11.5-15.5) % Plt Count (150-450) k/uL Neutrophils # (1.3-7.7) k/uL POC Glucose (mg/dL) 133 H 235 H 169 H (75-99) mg/dL AST (14-36) U/L Total Protein (6.3-8.2) g/dL Albumin (3.5-5.0) g/dL 10/13/17 10/13/17 10/13/17 Range/Units 07:03 07:03 07:11 WBC 11.8 H (3.8-10.6) k/uL RBC 3.37 L (3.80-5.40) m/uL Hgb 9.5 L (11.4-16.0) gm/dL Hct 30.8 L (34.0-46.0) % MCHC 30.9 L (31.0-37.0) g/dL RDW 15.7 H (11.5-15.5) % Plt Count 640 H (150-450) k/uL Neutrophils # 8.0 H (1.3-7.7) k/uL POC Glucose (mg/dL) 109 H (75-99) mg/dL AST 10 L (14-36) U/L Total Protein 6.1 L (6.3-8.2) g/dL Albumin 3.0 L (3.5-5.0) g/dL 10/13/17 Range/Units 11:25 WBC (3.8-10.6) k/uL RBC (3.80-5.40) m/uL Hgb (11.4-16.0) gm/dL Hct (34.0-46.0) % MCHC (31.0-37.0) g/dL RDW (11.5-15.5) % Plt Count (150-450) k/uL Neutrophils # (1.3-7.7) k/uL POC Glucose (mg/dL) 124 H (75-99) mg/dL AST (14-36) U/L Total Protein (6.3-8.2) g/dL Albumin (3.5-5.0) g/dL Microbiology - Last 24 Hours (Table) 10/09/17 14:24 Blood Culture - Preliminary Blood No Growth after 72 hours 10/06/17 10:05 Blood Culture - Final Blood No Growth after 144 hours Assessment and Plan Assessment: 1. Recent urosepsis with bacteremia and culture growing Proteus mirabilis. Patient was seen by infectious disease during last admission. She did not tolerate oral Cipro. She is currently finishing antibiotic course with IV ceftriaxone 2 g daily for total of 2 weeks. Continue with IV antibiotic at this time. Per infectious disease patient to finish therapy with short course of oral Augmentin with close outpatient follow-up. Blood culture and urine culture currently negative. WBC improving at 11.8. 2. Type 2 diabetes mellitus. Blood sugars are improving throughout the day however patient still had some hypoglycemia this morning. We'll decrease her Levemir to 26 units at bedtime. Continue sliding scale coverage 3. Essential hypertension: Blood pressure well-controlled currently on atenolol. Patient's hydrochlorothiazide and lisinopril have been reordered. 4. Nephrolithiasis with recent cystoscopy and dizzy at times he with double-J stent placement to the left ureter. He should still complaining of left abdominal and flank pain. Ultrasound of kidneys has been ordered. Dr. Walker per urology has also been consulted. Ultrasound kidneys completed showing nonobstructing nephrolithiasis right kidney. 5. Underlying rheumatoid arthritis on methotrexate currently on hold secondary to underlying infection 6. Chronic iron deficiency anemia continue ferrous sulfate. 7. Acute cholecystitis- surgical service is consulted. Ultrasound of abdomen completed showing gallbladder has distended margins without shadowing mobile gallstones or secondary ultrasound evidence for acute cholecystitis. No surgical intervention planned at this time. GI prophylactic Protonix, DVT prophylactic heparin Continue with current antibiotic at this time will discuss discharge plans with infectious disease tomorrow I performed an examination of the patient and discussed their management with the Nurse Practitioner. I have reviewed the Nurse Practitioner's notes and agree with the documented findings and plan of care
[2017-10-13 17:22] LABS: Glucose,Whole Blood 188 mg/dL (75-99)
[2017-10-13 20:35] LABS: Glucose,Whole Blood 259 mg/dL (75-99)
[2017-10-13] MEDS: INSULIN DETEMIR 100 UNIT/ML 10 ML VIAL SQ SCH (21:00)
[2017-10-13] MEDS: ATENOLOL 12.5 MG TAB PO SCH (21:00)
[2017-10-14] MEDS: HEPARIN SODIUM,PORCINE 5,000 UNIT/ML 1 ML VIAL SQ SCH ×4 (00:32→23:03)
[2017-10-14] MEDS: AMPICILLIN-SULBACTAM 3 GM in SODIUM CHLORIDE 0.9% 100 ML IVPB SCH ×5 (00:32→23:03)
[2017-10-14] MEDS: oxyCODONE-APAP 5-325MG 1 EACH TAB PO PRN ×5 (00:36→22:30)
[2017-10-14 01:52] LABS: Glucose,Whole Blood 142 mg/dL (75-99)
--- NOTE | 2017-10-14 05:11 | PN ---
PROGRESS NOTE DATE OF SERVICE: 10/13/2017 REASON FOR FOLLOWUP: Proteus mirabilis bacteremia secondary to the urinary source. INTERVAL HISTORY: The patient is afebrile. She is still complaining of discomfort on the left flank and lower abdominal area. The patient denies having any diarrhea. Denies having any chest pain or shortness of breath or cough. No pain in the right upper quadrant area. PHYSICAL EXAMINATION: On examination, her blood pressure is 117/68 with a pulse of 89, temperature 97.8. She is 96% on room air. General description is a middle aged female up in the bed in no distress. RESPIRATORY SYSTEM: Unlabored breathing, clear to auscultation anteriorly. HEART: S1, S2. Regular rate and rhythm. ABDOMEN: Soft, no tenderness in the right upper quadrant area. LAB: Hemoglobin is 9.5 white count down to 11.8 with a BUN of 13, creatinine 0.74. The patient did have blood cultures 10/06 as well as 10/09 that has been negative. Urine culture 10/06 as well as 10/09 has been negative. DIAGNOSTIC IMPRESSION AND PLAN: Patient with recent diagnosis of a Proteus mirabilis bacteremia currently complicated urinary tract infection requiring a left double-J stent placement. The patient admitted to the hospital with nonfunctioning Midline with superficial at that site. The patient subsequently has been treated with Rocephin that was switched to Unasyn as the CT was suspicious for acute cholecystitis. However, the patient has been evaluated by the surgical services and no need for any surgery. We will keep the patient on Unasyn as her white count has improved and the patient continued to improve to finish therapy with oral Augmentin. Continue supportive care. MMODL / IJN: [id number] /
[2017-10-14 05:56] VITALS: RESP 16
[2017-10-14 06:58] LABS: Glucose,Whole Blood 106 mg/dL (75-99)
[2017-10-14] MEDS: INSULIN ASPART 100 UNIT/ML 1 ML 10 ML VIAL SQ SCH ×4 (07:16→21:01)
[2017-10-14] MEDS: CHOLECALCIFEROL 1,000 UNIT TAB PO SCH (07:58)
[2017-10-14] MEDS: PANTOPRAZOLE 40 MG TABLET PO SCH (07:58)
[2017-10-14] MEDS: GEMFIBROZIL 600 MG TAB PO SCH ×2 (07:58→17:53)
[2017-10-14] MEDS: FERROUS SULFATE 325 MG TAB PO SCH ×2 (07:59→20:50)
[2017-10-14] MEDS: OXYBUTYNIN CHLORIDE 5 MG TAB PO SCH ×3 (07:59→20:51)
[2017-10-14] MEDS: metFORMIN 500 MG TAB PO SCH ×2 (07:59→20:50)
[2017-10-14] MEDS: LISINOPRIL 20 MG TAB PO SCH (07:59)
[2017-10-14] MEDS: HYDROCHLOROTHIAZIDE 12.5 MG CAP PO SCH (07:59)
[2017-10-14 09:01] LABS: HCT 34.4 % (34.0-46.0); HGB 11.1 gm/dL (11.4-16.0); Hypochromasia Slight; MCH 28.9 pg (25.0-35.0); MCHC 32.3 g/dL (31.0-37.0); MCV 89.7 fL (80.0-100.0); Mean Platelet Volume 6.6; Platelet Count 715 k/uL (150-450); RBC 3.84 m/uL (3.80-5.40); WBC 12.9 k/uL (3.8-10.6)
[2017-10-14 09:38] LABS: ALT 21 U/L (9-52); AST 15 U/L (14-36); Albumin 3.6 g/dL (3.5-5.0); Alkaline Phosphatase 94 U/L (38-126); Anion Gap 14 mmol/L; Blood Urea Nitrogen 13 mg/dL (7-17); Calcium 9.5 mg/dL (8.4-10.2); Carbon Dioxide 23 mmol/L (22-30); Chloride 105 mmol/L (98-107); Glucose 112 mg/dL (74-99); Potassium 4.9 mmol/L (3.5-5.1); Sodium 142 mmol/L (137-145); Total Bilirubin 0.3 mg/dL (0.2-1.3); Total Protein 7.1 g/dL (6.3-8.2)
[2017-10-14] MEDS: FLUCONAZOLE 100 MG TAB PO SCH (09:40)
[2017-10-14 11:33] LABS: Monocytes # (M) 1.16 k/uL (0-1.0); Neutrophils # (M) 8.64 k/uL (1.3-7.7); Neutrophils % (M) 67 %; Nucleated Red Blood Cells 0 /100 WBC (0-0); Total Cells Counted 100
[2017-10-14 12:07] LABS: Glucose,Whole Blood 149 mg/dL (75-99)
--- NOTE | 2017-10-14 12:33 | P.PN ---
Subjective Progress Note Date: 10/14/17 This is a 62-year-old female with past medical history noted below who was discharged from the hospital 2 days ago after being treated for urosepsis and underwent cystoscopy with lithotripsy and double-J catheter placement to the left ureter. Patient was doing fairly well. She was discharged home on antibiotic with IV ceftriaxone secondary to bacteremia noted during last admission. She was getting antibiotics through a midline in the superficial vein in the left forearm. Yesterday her visiting nurse came in and the IV has infiltrated. She was sent to the emergency room for evaluation. She underwent ultrasound in the emergency room showing superficial phlebitis. She is currently admitted to the hospital to continue her IV antibiotic. She is doing fairly well otherwise. Patient does not have any concerns or complaints. 10/06/2017 patient still complaining of nausea and abdominal tenderness. Patient is also having low-grade temps as high as 99.9. CBC, blood cultures and urine culture has been ordered. Patient also states she has been having diarrhea for 2 days. C. diff negative. Patient currently getting Rocephin through peripheral line. Patient also complaining of some shortness of breath. On room air, oxygen saturation 93-95%. Chest x-ray has been ordered. Denies chest pain. 10/07/2017 Patient sitting up in bed still complaining of nausea and diarrhea. Patient had temperature of 100.0F last night. Dr. Campos has been consulted. Urine and blood cultures have been sent. White blood cell count 14.1 today. C. diff negative. Patient also having episodes of high sugars in the 200s during the day and morning blood sugars in the 60's. Sliding scale insulin with meals has been added and long-acting insulin has been decreased to 29 units. Patient states shortness of breath has significantly improved currently on room air, oxygen saturation 97%. Denies chest pain. Awaiting infectious disease recommendation for PICC line placement. 10/08/2017 patient sitting up in bed still complaining of left abdominal and left flank pain. Patient does state diarrhea has resolved. Patient's blood sugar better this a.m. Due to continuing left abdominal pain and left flank pain. Will order a kidney ultrasound and consult urology. Patient denies chest pain or shortness of breath. 10/09/2017 patient lying in bed with complaints of abdominal pain. Ultrasound of kidneys completed yesterday showing nonobstructing nephrolithiasis right kidney. Awaiting on urology consult. Patient did have fever up 100.1 morning patient currently still on Rocephin. White blood cell 16.6. Blood culture and Urine cultures are negative. Patient states that she is no longer having diarrhea. EKG has been ordered due to patient stating she has a history of palpitations. Denies chest pain at this time. Denies any shortness of breath. 10/10/2017 patient reports improvement in her lower abdominal pressure as well as her nausea. Patient reports seeing urology earlier this morning. She will also be seen by surgical service and computed tomography scan of the abdomen had shown evidence of a dilated gallbladder. 10/11/2017 patient is still complaining of left flank pain denies any pain in the right upper quadrant there is no fever or chills. Still some nausea no vomiting no cough no chest pain or shortness of breath. Case discussed with Dr. Nettles today. On 10/12/2017 patient is still complaining of left flank pain otherwise no significant complaints at this time white blood count is coming down gradually patient is afebrile 10/13/2017 patient is still complaining of left flank pain. White blood cell count 11.8. She remains afebrile. Denies diarrhea, nausea or vomiting. Denies shortness breath or chest pain at this time. Discharge hopefully tomorrow. Per infectious disease patient to finish therapy with short course of oral Augmentin with close outpatient follow-up. 10/14/2017 patient complaining of diarrhea today. She had 2 loose watery stools are ready this morning. White count has jumped 12.9. We'll need to recheck stool for C. diff. Patient still complains of the left leg sided flank and abdominal pain. She denies any chest pain or shortness breath. Denies any nausea or vomiting. Denies any burning with urination. Infectious disease has added Diflucan due to the increase in white count. Objective - Vital Signs Vital signs: Vital Signs Temp 98.3 F 10/14/17 05:30 Pulse 75 10/14/17 05:30 Resp 16 10/14/17 05:30 BP 118/74 10/14/17 05:30 Pulse Ox 98 10/14/17 05:30 Intake & Output 10/13/17 10/14/17 10/14/17 18:59 06:59 18:59 Other: Voiding Method Toilet Toilet # Voids 2 1 1 - Exam Head normocephalic Neck supple Lungs clear to auscultation bilaterally no wheezing or crackles Heart regular rate and rhythm S1-S2, no rub or gallop Abdomen is soft left-sided tenderness nondistended positive bowel sounds no hepatosplenomegaly Extremities no edema Neuro alert and orientated to 3 - Labs CBC & Chem 7: 10/14/17 08:03 10/14/17 08:03 Labs: Abnormal Lab Results - Last 24 Hours (Table) 10/13/17 10/13/17 10/14/17 Range/Units 17:20 20:34 01:50 WBC (3.8-10.6) k/uL Hgb (11.4-16.0) gm/dL RDW (11.5-15.5) % Plt Count (150-450) k/uL Neutrophils # (Manual) (1.3-7.7) k/uL Monocytes # (Manual) (0-1.0) k/uL Glucose (74-99) mg/dL POC Glucose (mg/dL) 188 H 259 H 142 H (75-99) mg/dL 10/14/17 10/14/17 10/14/17 Range/Units 06:53 08:03 08:03 WBC 12.9 H (3.8-10.6) k/uL Hgb 11.1 L (11.4-16.0) gm/dL RDW 16.0 H (11.5-15.5) % Plt Count 715 H (150-450) k/uL Neutrophils # (Manual) 8.64 H (1.3-7.7) k/uL Monocytes # (Manual) 1.16 H (0-1.0) k/uL Glucose 112 H (74-99) mg/dL POC Glucose (mg/dL) 106 H (75-99) mg/dL 10/14/17 Range/Units 11:47 WBC (3.8-10.6) k/uL Hgb (11.4-16.0) gm/dL RDW (11.5-15.5) % Plt Count (150-450) k/uL Neutrophils # (Manual) (1.3-7.7) k/uL Monocytes # (Manual) (0-1.0) k/uL Glucose (74-99) mg/dL POC Glucose (mg/dL) 149 H (75-99) mg/dL Microbiology - Last 24 Hours (Table) 10/09/17 14:24 Blood Culture - Preliminary Blood No Growth after 96 hours Assessment and Plan Assessment: 1. Recent UTI with sepsis and bacteremia with culture growing Proteus mirabilis. Patient was seen by infectious disease during last admission. She did not tolerate oral Cipro. She is currently finishing antibiotic course with IV ceftriaxone 2 g daily for total of 2 weeks. Continue with IV antibiotic at this time. Per infectious disease patient to finish therapy with Augmentin 1 week with close outpatient follow-up. Blood culture and urine culture currently negative. White count has increased to 12.9. Infectious disease has added Diflucan 2. Type 2 diabetes mellitus. Blood sugars are showing improvement. Continue with Levemir to 26 units at bedtime. Continue sliding scale coverage 3. Essential hypertension: Blood pressure stable continue current medications 4. Nephrolithiasis with recent cystoscopy and dizzy at times he with double-J stent placement to the left ureter. He should still complaining of left abdominal and flank pain. Ultrasound of kidneys has been ordered. Dr. Walker per urology has also been consulted. Ultrasound kidneys completed showing nonobstructing nephrolithiasis right kidney. 5. Underlying rheumatoid arthritis on methotrexate currently on hold secondary to underlying infection 6. Chronic iron deficiency anemia continue ferrous sulfate. 7. Acute cholecystitis- surgical service is consulted. Ultrasound of abdomen completed showing gallbladder has distended margins without shadowing mobile gallstones or secondary ultrasound evidence for acute cholecystitis. No surgical intervention planned at this time. 8. Diarrhea with worsening white count. Check stool for C. diff. GI prophylactic Protonix, DVT prophylactic heparin I performed an examination of the patient and discussed their management with the physician Heel Layer. I have reviewed the Physician Heel Layer's notes and agree with the documented findings and plan of care
--- NOTE | 2017-10-14 14:15 | PN ---
PROGRESS NOTE DATE OF SERVICE: 10/14/2017 REASON FOR FOLLOWUP: 1. Proteus mirabilis UTI, complicated. 2. Positively elevated white count. INTERVAL HISTORY: The patient is afebrile. She is currently feeling better. Breathing comfortably. Still has some pain to the left lower abdominal area. No nausea, no vomiting. PHYSICAL EXAMINATION: Blood pressure 119/74 with a pulse of 75, temperature 98.3, and 98% on room air. General description is a middle-aged female, up in the bed in no distress. RESPIRATORY SYSTEM: Unlabored breathing, clear to auscultation anteriorly. HEART: S1, S2. Regular rate and rhythm. ABDOMEN: Soft, no tenderness. LABS: Hemoglobin is 11.1, white count of 12.9 with a BUN of 13, creatinine 0.79. DIAGNOSTIC IMPRESSION AND PLAN: Patient with a complicated Proteus mirabilis urinary tract infection with bacteremia, status post left-sided double-J catheter placement on last admission. Admitted to hospital because of problem with midline. Patient's white count has been elevated, though all her cultures have been negative. We will add Diflucan 200 p.o. daily with close outpatient followup. If plan for discharge, she can go home on Augmentin and Diflucan combination for about a week. This was explained to the nurse practitioner for the primary team with close outpatient followup. MMODL / IJN: [id number] /
[2017-10-14 17:20] LABS: Glucose,Whole Blood 226 mg/dL (75-99)
[2017-10-14] MEDS: ATENOLOL 12.5 MG TAB PO SCH (20:50)
[2017-10-14] MEDS: INSULIN DETEMIR 100 UNIT/ML 10 ML VIAL SQ SCH (20:53)
[2017-10-14 20:57] LABS: Glucose,Whole Blood 183 mg/dL (75-99)
[2017-10-15 02:12] LABS: Glucose,Whole Blood 173 mg/dL (75-99)
[2017-10-15] MEDS: AMPICILLIN-SULBACTAM 3 GM in SODIUM CHLORIDE 0.9% 100 ML IVPB SCH ×2 (05:35→11:03)
[2017-10-15] MEDS: oxyCODONE-APAP 5-325MG 1 EACH TAB PO PRN ×2 (05:35→09:35)
[2017-10-15 06:12] VITALS: BP 119/65; PULSE 72; TEMP 97.5
[2017-10-15 07:02] LABS: Glucose,Whole Blood 146 mg/dL (75-99)
[2017-10-15] MEDS: FLUCONAZOLE 100 MG TAB PO SCH (07:56)
[2017-10-15] MEDS: HEPARIN SODIUM,PORCINE 5,000 UNIT/ML 1 ML VIAL SQ SCH (07:56)
[2017-10-15] MEDS: FERROUS SULFATE 325 MG TAB PO SCH (07:56)
[2017-10-15] MEDS: HYDROCHLOROTHIAZIDE 12.5 MG CAP PO SCH (07:56)
[2017-10-15] MEDS: metFORMIN 500 MG TAB PO SCH (07:56)
[2017-10-15] MEDS: PANTOPRAZOLE 40 MG TABLET PO SCH (07:57)
[2017-10-15] MEDS: OXYBUTYNIN CHLORIDE 5 MG TAB PO SCH (07:57)
[2017-10-15] MEDS: CHOLECALCIFEROL 1,000 UNIT TAB PO SCH (07:57)
[2017-10-15] MEDS: INSULIN ASPART 100 UNIT/ML 1 ML 10 ML VIAL SQ SCH ×2 (07:57→12:50)
[2017-10-15] MEDS: GEMFIBROZIL 600 MG TAB PO SCH (07:57)
[2017-10-15] MEDS: LISINOPRIL 20 MG TAB PO SCH (08:06)
[2017-10-15 08:16] LABS: Basophils # (A) 0.1 k/uL (0-0.2); Basophils % (A) 1 %; Eosinophils # (A) 0.3 k/uL (0-0.7); Eosinophils % (A) 3 %; HGB 9.9 gm/dL (11.4-16.0); Hypochromasia Slight; Lymphocytes # (A) 2.4 k/uL (1.0-4.8); Lymphocytes % (A) 21 %; MCH 28.2 pg (25.0-35.0); MCHC 31.1 g/dL (31.0-37.0); MCV 90.7 fL (80.0-100.0); Monocytes # (A) 0.6 k/uL (0-1.0); Monocytes % (A) 5 %; Neutrophils # (A) 7.9 k/uL (1.3-7.7); Neutrophils % (A) 69 %; Platelet Count 617 k/uL (150-450); RBC 3.53 m/uL (3.80-5.40); RDW 15.8 % (11.5-15.5); WBC 11.4 k/uL (3.8-10.6)
[2017-10-15 08:39] LABS: Albumin 3.5 g/dL (3.5-5.0); Calcium 9.2 mg/dL (8.4-10.2); Potassium 4.5 mmol/L (3.5-5.1); Total Bilirubin 0.2 mg/dL (0.2-1.3); Total Protein 6.9 g/dL (6.3-8.2)
--- NOTE | 2017-10-15 11:38 | P.DS ---
Providers Date of admission: 10/04/17 15:05 Expected date of discharge: 10/15/17 Attending physician: Charles Gonzalez Consults: 10/06/17 13:23 Consult Physician Routine Consulting Provider: Zari Campos Consult Reason/Comments: pyelonephritis Do you want consulting provider notified?: Yes 10/08/17 11:03 Consult Physician Routine Consulting Provider: Spencer Walker Consult Reason/Comments: left flank pain, hx of left hydronephrosis Do you want consulting provider notified?: Yes 10/09/17 21:41 Consult Physician Routine Consulting Provider: James Nettles Consult Reason/Comments: Cholecystitis - abnormal CT Do you want consulting provider notified?: Yes, Notify in am Primary care physician: Stated None Hospital Course: Discharge diagnosis 1. Recent UTI with sepsis and bacteremia with culture growing Proteus mirabilis. Patient was seen by infectious disease during last admission. She did not tolerate oral Cipro. She is currently finishing antibiotic course with IV ceftriaxone 2 g daily for total of 2 weeks. Continue with IV antibiotic at this time. Per infectious disease patient to finish therapy with Augmentin 1 week with close outpatient follow-up. Blood culture and urine culture currently negative. White count has increased to 12.9. Infectious disease has added Diflucan. White blood cell count 11.4. Patient will be discharged on Diflucan and Augmentin per infectious disease 2. Type 2 diabetes mellitus. Blood sugars are showing improvement. Home medication of of insulin Glargine has been decreased to 26U. 3. Essential hypertension: Blood pressure stable continue current medications. Patient's atenolol dose has been decreased to 12.5mg PO and patient's Hydrodiurl and lisinopril have been reordered. 4. Nephrolithiasis with recent cystoscopy and dizzy at times he with double-J stent placement to the left ureter. He should still complaining of left abdominal and flank pain. Ultrasound of kidneys has been ordered. Dr. Walker per urology has also been consulted. Ultrasound kidneys completed showing nonobstructing nephrolithiasis right kidney. Patient will follow-up with Dr. de anda approximately 1 week to set up for ureteroscopy and lithotripsy. 5. Underlying rheumatoid arthritis on methotrexate currently on hold secondary to underlying infection 6. Chronic iron deficiency anemia continue ferrous sulfate. 7. Acute cholecystitis- surgical service is consulted. Ultrasound of abdomen completed showing gallbladder has distended margins without shadowing mobile gallstones or secondary ultrasound evidence for acute cholecystitis. No surgical intervention planned at this time. Surgical surfaces has signed off 8. Diarrhea with worsening white count. Patient states she has not had any bowel movement since yesterday. White blood cell decreased to 11.4 Hospital course This is a 62-year-old female with past medical history noted below who was discharged from the hospital 2 days ago after being treated for urosepsis and underwent cystoscopy with lithotripsy and double-J catheter placement to the left ureter. Patient was doing fairly well. She was discharged home on antibiotic with IV ceftriaxone secondary to bacteremia noted during last admission. She was getting antibiotics through a midline in the superficial vein in the left forearm. Yesterday her visiting nurse came in and the IV has infiltrated. She was sent to the emergency room for evaluation. She underwent ultrasound in the emergency room showing superficial phlebitis. She is currently admitted to the hospital to continue her IV antibiotic. She is doing fairly well otherwise. Patient does not have any concerns or complaints. 10/06/2017 patient still complaining of nausea and abdominal tenderness. Patient is also having low-grade temps as high as 99.9. CBC, blood cultures and urine culture has been ordered. Patient also states she has been having diarrhea for 2 days. C. diff negative. Patient currently getting Rocephin through peripheral line. Patient also complaining of some shortness of breath. On room air, oxygen saturation 93-95%. Chest x-ray has been ordered. Denies chest pain. 10/07/2017 Patient sitting up in bed still complaining of nausea and diarrhea. Patient had temperature of 100.0F last night. Dr. Campos has been consulted. Urine and blood cultures have been sent. White blood cell count 14.1 today. C. diff negative. Patient also having episodes of high sugars in the 200s during the day and morning blood sugars in the 60's. Sliding scale insulin with meals has been added and long-acting insulin has been decreased to 29 units. Patient states shortness of breath has significantly improved currently on room air, oxygen saturation 97%. Denies chest pain. Awaiting infectious disease recommendation for PICC line placement. 10/08/2017 patient sitting up in bed still complaining of left abdominal and left flank pain. Patient does state diarrhea has resolved. Patient's blood sugar better this a.m. Due to continuing left abdominal pain and left flank pain. Will order a kidney ultrasound and consult urology. Patient denies chest pain or shortness of breath. 10/09/2017 patient lying in bed with complaints of abdominal pain. Ultrasound of kidneys completed yesterday showing nonobstructing nephrolithiasis right kidney. Awaiting on urology consult. Patient did have fever up 100.1 morning patient currently still on Rocephin. White blood cell 16.6. Blood culture and Urine cultures are negative. Patient states that she is no longer having diarrhea. EKG has been ordered due to patient stating she has a history of palpitations. Denies chest pain at this time. Denies any shortness of breath. 10/10/2017 patient reports improvement in her lower abdominal pressure as well as her nausea. Patient reports seeing urology earlier this morning. She will also be seen by surgical service and computed tomography scan of the abdomen had shown evidence of a dilated gallbladder. 10/11/2017 patient is still complaining of left flank pain denies any pain in the right upper quadrant there is no fever or chills. Still some nausea no vomiting no cough no chest pain or shortness of breath. Case discussed with Dr. Nettles today. On 10/12/2017 patient is still complaining of left flank pain otherwise no significant complaints at this time white blood count is coming down gradually patient is afebrile 10/13/2017 patient is still complaining of left flank pain. White blood cell count 11.8. She remains afebrile. Denies diarrhea, nausea or vomiting. Denies shortness breath or chest pain at this time. Discharge hopefully tomorrow. Per infectious disease patient to finish therapy with short course of oral Augmentin with close outpatient follow-up. 10/14/2017 patient complaining of diarrhea today. She had 2 loose watery stools are ready this morning. White count has jumped 12.9. We'll need to recheck stool for C. diff. Patient still complains of the left leg sided flank and abdominal pain. She denies any chest pain or shortness breath. Denies any nausea or vomiting. Denies any burning with urination. Infectious disease has added Diflucan due to the increase in white count. 10/15/2017 diarrhea has resolved. Patient states she has not had a bowel movement since yesterday. White blood cell count 11.4. Diflucan was added yesterday per Dr. Campos. Patient denies any chest pain or shortness of breath at this time. Denies any burning with urination. Denies any nausea or vomiting patient has been cleared for discharge by all consulting providers. Patient will be discharged home on Augmentin and Diflucan per infectious disease. Patient Condition at Discharge: Stable Plan - Discharge Summary Discharge Rx Participant: No New Discharge Prescriptions: New Amoxicillin/Potassium Clav [Augmentin 875-125 Tablet] 1 tab PO Q12HR 10 Days #20 tab Atenolol [Tenormin] 12.5 mg PO HS #30 dose Fluconazole [Diflucan] 200 mg PO DAILY #7 tab Hydrochlorothiazide [Hydrodiuril] 12.5 mg PO DAILY #30 cap Lisinopril [Zestril] 20 mg PO DAILY #30 tab Continue Gemfibrozil [Lopid] 600 mg PO DAILY [place]-3 Fatty Acids/Fish Oil [Fish Oil 1,000 mg Softgel] 1 cap PO DAILY metFORMIN HCL [Glucophage] 1,000 mg PO BID EPINEPHrine (Auto Inject) [Epipen] 0.3 mg IM ONCE PRN #2 syringe PRN Reason: Difficulty breathing Cholecalciferol (Vitamin D3) [Vitamin D3] 2,000 unit PO DAILY Ferrous Sulfate [Iron (65 MG Elemental)] 325 mg PO BID #60 tab Insulin Aspart [NovoLOG (formulary)] 0 unit SQ ACHS vial Oxybutynin Chloride [Ditropan] 5 mg PO TID #21 tab Insulin Glargine,Hum.rec.anlog [Lantus Solostar] 32 unit SQ HS #0 Discontinued Atenolol [Tenormin] 12.5 mg PO DAILY cefTRIAXone [Rocephin] 2,000 mg IVP Q24HR #12 syringe HYDROcodone/APAP 5-325MG [[place] 5-325] 1 tab PO Q4HR PRN PRN Reason: Pain Discharge Medication List EPINEPHrine (Auto Inject) [Epipen] 0.3 mg IM ONCE PRN #2 syringe 12/10/16 [Rx] Gemfibrozil [Lopid] 600 mg PO DAILY 12/10/16 [History] [place]-3 Fatty Acids/Fish Oil [Fish Oil 1,000 mg Softgel] 1 cap PO DAILY 08/29/ 17 [History] metFORMIN HCL [Glucophage] 1,000 mg PO BID 12/10/16 [History] Cholecalciferol (Vitamin D3) [Vitamin D3] 2,000 unit PO DAILY 09/28/17 [History] Ferrous Sulfate [Iron (65 MG Elemental)] 325 mg PO BID #60 tab 10/03/17 [Rx] Insulin Aspart [NovoLOG (formulary)] 0 unit SQ ACHS vial 10/03/17 [Rx] Insulin Glargine,Hum.rec.anlog [Lantus Solostar] 32 unit SQ HS #0 10/03/17 [Rx] Oxybutynin Chloride [Ditropan] 5 mg PO TID #21 tab 10/03/17 [Rx] Amoxicillin/Potassium Clav [Augmentin 875-125 Tablet] 1 tab PO Q12HR 10 Days # 20 tab 10/15/17 [Rx] Atenolol [Tenormin] 12.5 mg PO HS #30 dose 10/15/17 [Rx] Fluconazole [Diflucan] 200 mg PO DAILY #7 tab 10/15/17 [Rx] Hydrochlorothiazide [Hydrodiuril] 12.5 mg PO DAILY #30 cap 10/15/17 [Rx] Lisinopril [Zestril] 20 mg PO DAILY #30 tab 10/15/17 [Rx] Follow up Appointment(s)/Referral(s): [facility], [NON-STAFF] - Spencer Walker MD [STAFF PHYSICIAN] - 1 Week Erica Lang MD [REFERRING] - 1-2 days Zari Campos MD [STAFF PHYSICIAN] - 1 Week Activity/Diet/Wound Care/Special Instructions: Diet Carb Consistent Activity as tolerated Discharge Disposition: HOME SELF-CARE
[2017-10-15 12:02] LABS: Glucose,Whole Blood 169 mg/dL (75-99)
== END 2017-10-15 13:27 | disposition home or self-care (01) | DRG 872 ==
LOC: EC 12:49 → 4MS4W 15:05
PROVIDERS: ADMIT Internal Medicine; ATTEND Internal Medicine
DX: A41.89 Other specified sepsis (principal); T82.868A Thrombosis due to vascular prosthetic devices, implants and grafts, initial encounter; K81.0 Acute cholecystitis; N39.0 Urinary tract infection, site not specified; Y71.1 Therapeutic (nonsurgical) and rehabilitative cardiovascular devices associated with adverse incidents; I45.81 Long QT syndrome; M41.9 Scoliosis, unspecified; B96.4 Proteus (mirabilis) (morganii) as the cause of diseases classified elsewhere; E11.40 Type 2 diabetes mellitus with diabetic neuropathy, unspecified; M06.9 Rheumatoid arthritis, unspecified; D50.9 Iron deficiency anemia, unspecified; I10 Essential (primary) hypertension; N20.0 Calculus of kidney; Z87.891 Personal history of nicotine dependence; Z88.2 Allergy status to sulfonamides; Z91.030 Bee allergy status; Z79.2 Long term (current) use of antibiotics; Z79.4 Long term (current) use of insulin; Z79.899 Other long term (current) drug therapy; Z87.440 Personal history of urinary (tract) infections
CPT/HCPCS: 36415; 71046; 74176; 76705; 76770; 80053; 81001; 82150; 83690; 85025; 85610; 85730; 87040; 87086; 87324; 93005; 96361; 96374; 99285

== ENCOUNTER 2017-11-07 15:23 | Inpatient (IN) | payer MEDICARE, BC ==
[2017-11-07 16:16] LABS: Appearance,Urine Turbid (Clear); Bacteria,Urine Few /hpf; Basophils % (A) 0 %; Bilirubin,Urine Negative (Negative); Blood,Urine Moderate (Negative); Color,Urine Yellow; Eosinophils # (A) 0.1 k/uL (0-0.7); Eosinophils % (A) 1 %; Glucose,Urine (UA) Negative (Negative); HCT 33.7 % (34.0-46.0); HGB 10.5 gm/dL (11.4-16.0); Hyaline Casts,Urine 14 /lpf (0-2); Ketones,Urine Negative (Negative); Leukocyte Esterase,Urine Large (Negative); Lymphocytes # (A) 2.8 k/uL (1.0-4.8); Lymphocytes % (A) 17 %; MCH 27.2 pg (25.0-35.0); MCHC 31.2 g/dL (31.0-37.0); MCV 87.1 fL (80.0-100.0); Mean Platelet Volume 6.8; Monocytes # (A) 0.8 k/uL (0-1.0); Monocytes % (A) 5 %; Mucus,Urine Rare /hpf; Neutrophils # (A) 11.8 k/uL (1.3-7.7); Neutrophils % (A) 75 %; Nitrite,Urine Negative (Negative); Platelet Count 375 k/uL (150-450); Protein,Urine 2+ (Negative); RBC 3.86 m/uL (3.80-5.40); RBC,Urine 20 /hpf (0-5); RDW 15.7 % (11.5-15.5); Specific Gravity,Urine 1.016 (1.001-1.035); Urobilinogen,Urine <2.0 mg/dL (<2.0); WBC 15.8 k/uL (3.8-10.6); WBC,Urine >182 /hpf (0-5)
[2017-11-07 16:24] LABS: Albumin 4.1 g/dL (3.5-5.0); Calcium 9.7 mg/dL (8.4-10.2); Total Bilirubin 0.5 mg/dL (0.2-1.3); Total Protein 7.3 g/dL (6.3-8.2)
[2017-11-07] MEDS ORDERED: KETOROLAC 30 MG/ML 1 ML VIAL IVP STA (17:24)
[2017-11-07] MEDS ORDERED: SODIUM CHLORIDE 0.9% 1,000 ML IV STA ×2 (17:24→20:50)
[2017-11-07] MEDS ORDERED: cefTRIAXone IN SWFI 2,000 MG/20 ML SYRINGE IVP STA (17:24)
[2017-11-07] MEDS ORDERED: ONDANSETRON 4 MG/2 ML VIAL IVP STA (17:24)
--- NOTE | 2017-11-07 18:08 | ED ---
General Adult HPI - General Chief complaint: Abdominal Pain Stated complaint: Abd Pain Time Seen by Provider: 11/07/17 16:53 Source: patient, RN notes reviewed Mode of arrival: ambulatory Limitations: no limitations - History of Present Illness Initial comments: 62-year-old female since to the emergency department for a chief complaint of flank pain and abdominal pain times weeks. Patient states she was admitted to the hospital a month ago for urosepsis and nephrolithiasis. Patient was treated with a midline as well as stent in the ureter left side. Patient states she has not felt well since discharge from the hospital. Patient states today she noticed her urine looks turbid and had increasing pain so came to the emergency department. Pt admits to pain and cramping with urination. Patient admits to fevers and chills over the past few days intermittently. Patient denies any blood in the urine. Patient denies any blood in the stool. No diarrhea. Patient admits to nausea and has vomited a few times today. Patient has no other complaints at this time including shortness of breath, chest pain, headache, or visual changes. - Related Data Home Medications Medication Instructions Recorded Confirmed Gemfibrozil [Lopid] 600 mg PO DAILY 12/10/16 11/07/17 [place]-3 Fatty Acids/Fish Oil [Fish 1 cap PO DAILY 12/10/16 11/07/17 Oil 1,000 mg Softgel] metFORMIN HCL [Glucophage] 1,000 mg PO BID 12/10/16 11/07/17 Cholecalciferol (Vitamin D3) 2,000 unit PO DAILY 09/28/17 11/07/17 [Vitamin D3] Atenolol [Tenormin] 25 mg PO HS 11/07/17 11/07/17 HYDROcodone/APAP 10-325MG [[place] 0.5 tab PO Q4HR PRN 11/07/17 11/07/17 10-325] INSULIN LISPRO (humaLOG) [humaLOG] See Protocol SQ AC-TID 11/07/17 11/07/17 Insulin Glargine [Lantus] 26 unit SQ HS 11/07/17 11/07/17 Prochlorperazine [Compazine] 10 mg PO TID PRN 11/07/17 11/07/17 Previous Rx's Medication Instructions Recorded EPINEPHrine (Auto Inject) [Epipen] 0.3 mg IM ONCE PRN #2 syringe 12/10/16 Ferrous Sulfate [Iron (65 MG 325 mg PO BID #60 tab 10/03/17 Elemental)] Oxybutynin Chloride [Ditropan] 5 mg PO TID #21 tab 10/03/17 Hydrochlorothiazide [Hydrodiuril] 12.5 mg PO DAILY #30 cap 10/15/17 Lisinopril [Zestril] 20 mg PO DAILY #30 tab 10/15/17 Allergies Allergy/AdvReac Type Severity Reaction Status Date / Time bee venom protein (honey bee) Allergy Rash/Hives Verified 11/07/17 17:25 Sulfa (Sulfonamide Allergy Unknown Verified 11/07/17 17:25 Antibiotics) Review of Systems ROS Statement: Those systems with pertinent positive or pertinent negative responses have been documented in the HPI. ROS Other: All systems not noted in ROS Statement are negative. Past Medical History Past Medical History: Diabetes Mellitus, Hypertension, Rheumatoid Arthritis (RA) Additional Past Medical History / Comment(s): neuropathy, scoliosis, kidney stones History of Any Multi-Drug Resistant Organisms: None Reported Past Surgical History: Breast Surgery Additional Past Surgical History / Comment(s): diagnostic laparoscopy, renal stent Past Anesthesia/Blood Transfusion Reactions: No Reported Reaction Past Psychological History: No Psychological Hx Reported Smoking Status: Former smoker Past Alcohol Use History: None Reported Past Drug Use History: None Reported General Exam Limitations: no limitations General appearance: alert, in no apparent distress Head exam: Present: atraumatic, normocephalic, normal inspection Eye exam: Present: normal appearance, PERRL, EOMI. Absent: scleral icterus, conjunctival injection, nystagmus ENT exam: Present: normal exam, normal oropharynx, mucous membranes moist, TM's normal bilaterally, normal external ear exam Neck exam: Present: normal inspection, full ROM. Absent: tenderness, meningismus, lymphadenopathy Respiratory exam: Present: normal lung sounds bilaterally. Absent: respiratory distress, wheezes, rales, rhonchi, stridor Cardiovascular Exam: Present: regular rate, normal rhythm, normal heart sounds. Absent: systolic murmur, diastolic murmur, rubs, gallop, clicks GI/Abdominal exam: Present: soft, tenderness (moderate tenderness LLQ, LUQ), normal bowel sounds, other (negative obturator, psoas, rovsing sign. Neg Mcburney sign.). Absent: distended, guarding, rebound, rigid Course Vital Signs 11/07/17 11/07/17 11/07/17 15:39 16:43 18:00 Temperature 97.9 F 100.9 F H 99.3 F Pulse Rate 114 H 108 H 94 Respiratory 18 18 18 Rate Blood Pressure 126/73 126/59 99/52 O2 Sat by Pulse 100 98 96 Oximetry 11/07/17 20:31 Temperature Pulse Rate 94 Respiratory 18 Rate Blood Pressure 128/60 O2 Sat by Pulse 96 Oximetry Medical Decision Making - Medical Decision Making 60-year-old female presents to the emergency department for a chief complaint of abdominal pain with pain with urination. History of urosepsis one month ago. Patient is febrile in the emergency department. Patient has leukocytosis at 15.8 with a left shift. Lactate 1.6. Urine shows large leuk esterase with over [address] of the abdomen shows mild left sided hydronephrosis. Decreased left renal contrast cortical density that could relate to decreased renal function stent appears in good position. Nonobstructing right renal calculus. No change in the kidneys compared to the old exam. Given patient's fever, high white count, and positive urinary tract infection she likely has urosepsis. Patient was given IV hydration IV antibiotics in the emergency room and she will be admitted to inpatient for management. - Lab Data Result diagrams: 11/07/17 16:01 11/07/17 16:01 Lab Results 11/07/17 11/07/17 11/07/17 Range/Units 16:01 16:01 16:01 WBC 15.8 H (3.8-10.6) k/uL RBC 3.86 (3.80-5.40) m/uL Hgb 10.5 L (11.4-16.0) gm/dL Hct 33.7 L (34.0-46.0) % MCV 87.1 (80.0-100.0) fL MCH 27.2 (25.0-35.0) pg MCHC 31.2 (31.0-37.0) g/dL RDW 15.7 H (11.5-15.5) % Plt Count 375 (150-450) k/uL Neutrophils % 75 % Lymphocytes % 17 % Monocytes % 5 % Eosinophils % 1 % Basophils % 0 % Neutrophils # 11.8 H (1.3-7.7) k/uL Lymphocytes # 2.8 (1.0-4.8) k/uL Monocytes # 0.8 (0-1.0) k/uL Eosinophils # 0.1 (0-0.7) k/uL Basophils # 0.0 (0-0.2) k/uL Sodium 135 L (137-145) mmol/L Potassium 4.0 (3.5-5.1) mmol/L Chloride 99 (98-107) mmol/L Carbon Dioxide 19 L (22-30) mmol/L Anion Gap 17 mmol/L BUN 19 H (7-17) mg/dL Creatinine 0.95 (0.52-1.04) mg/dL Est GFR (CKD-EPI)AfAm 75 (>60 ml/min/1.73 sqM) Est GFR (CKD-EPI)NonAf 65 (>60 ml/min/1.73 sqM) Glucose 252 H (74-99) mg/dL Plasma Lactic Acid [place] (0.7-2.0) mmol/L Calcium 9.7 (8.4-10.2) mg/dL Total Bilirubin 0.5 (0.2-1.3) mg/dL AST 15 (14-36) U/L ALT 21 (9-52) U/L Alkaline Phosphatase 92 (38-126) U/L Total Protein 7.3 (6.3-8.2) g/dL Albumin 4.1 (3.5-5.0) g/dL Amylase 44 (30-110) U/L Lipase 66 (23-300) U/L Urine Color Yellow Urine Appearance Turbid H (Clear) Urine pH 6.0 (5.0-8.0) Ur Specific [place] 1.016 (1.001-1.035) Urine Protein 2+ H (Negative) Urine Glucose (UA) Negative (Negative) Urine Ketones Negative (Negative) Urine Blood Moderate H (Negative) Urine Nitrite Negative (Negative) Urine Bilirubin Negative (Negative) Urine Urobilinogen <2.0 (<2.0) mg/dL Ur Leukocyte Esterase Large H (Negative) Urine RBC 20 H (0-5) /hpf Urine WBC >182 H (0-5) /hpf Urine WBC Clumps Many H (None) /hpf Urine Bacteria Few H (None) /hpf Hyaline Casts 14 H (0-2) /lpf Urine Mucus Rare H (None) /hpf 11/07/17 Range/Units 17:50 WBC (3.8-10.6) k/uL RBC (3.80-5.40) m/uL Hgb (11.4-16.0) gm/dL Hct (34.0-46.0) % MCV (80.0-100.0) fL MCH (25.0-35.0) pg MCHC (31.0-37.0) g/dL RDW (11.5-15.5) % Plt Count (150-450) k/uL Neutrophils % % Lymphocytes % % Monocytes % % Eosinophils % % Basophils % % Neutrophils # (1.3-7.7) k/uL Lymphocytes # (1.0-4.8) k/uL Monocytes # (0-1.0) k/uL Eosinophils # (0-0.7) k/uL Basophils # (0-0.2) k/uL Sodium (137-145) mmol/L Potassium (3.5-5.1) mmol/L Chloride (98-107) mmol/L Carbon Dioxide (22-30) mmol/L Anion Gap mmol/L BUN (7-17) mg/dL Creatinine (0.52-1.04) mg/dL Est GFR (CKD-EPI)AfAm (>60 ml/min/1.73 sqM) Est GFR (CKD-EPI)NonAf (>60 ml/min/1.73 sqM) Glucose (74-99) mg/dL Plasma Lactic Acid [place] 1.6 (0.7-2.0) mmol/L Calcium (8.4-10.2) mg/dL Total Bilirubin (0.2-1.3) mg/dL AST (14-36) U/L ALT (9-52) U/L Alkaline Phosphatase (38-126) U/L Total Protein (6.3-8.2) g/dL Albumin (3.5-5.0) g/dL Amylase (30-110) U/L Lipase (23-300) U/L Urine Color Urine Appearance (Clear) Urine pH (5.0-8.0) Ur Specific [place] (1.001-1.035) Urine Protein (Negative) Urine Glucose (UA) (Negative) Urine Ketones (Negative) Urine Blood (Negative) Urine Nitrite (Negative) Urine Bilirubin (Negative) Urine Urobilinogen (<2.0) mg/dL Ur Leukocyte Esterase (Negative) Urine RBC (0-5) /hpf Urine WBC (0-5) /hpf Urine WBC Clumps (None) /hpf Urine Bacteria (None) /hpf Hyaline Casts (0-2) /lpf Urine Mucus (None) /hpf Disposition Clinical Impression: Urinary tract infection, Leukocytosis, Hydronephrosis Disposition: ADMITTED IP TO THIS HOSP Condition: Good Is patient prescribed a controlled substance at d/c from ED?: No Referrals: Erica Lang MD [Primary Care Provider] - 1-2 days Time of Disposition: 20:56
--- NOTE | 2017-11-07 20:02 | CT ---
EXAMINATION TYPE: CT abdomen pelvis wo/w con DATE OF EXAM: 11/07/2017 COMPARISON: 10/09/2017 HISTORY: Abdominal pain CT DLP: mGycm Automated exposure control for dose reduction was used. TECHNIQUE: Helical acquisition of images was performed from the lung bases through the pelvis. CONTRAST: The contrast was Isovue 100 mL. FINDINGS: There is subsegmental atelectasis at the right lung base. There is no pleural effusion. Liver and spl een appear normal. There is no evidence of pancreatic mass. There is fat stranding around the left ki dney. There is left side ureteral stent that appears in good position. There is mild left-sided hydro nephrosis. There is 4 mm calculus in the posterior right kidney. I see no definite left renal calculu s. There is no retroperitoneal adenopathy. There is no ascites. Gallbladder appears normal. Bile ducts are not dilated. There is no intestinal wall thickening. There are no dilated loops. Bladder distends smoothly. There is no pelvic mass. There is decreased cortical contrast opacification of the left kidney compared to the right. Appendix appears normal. There are some spondylotic changes in the lumbar spine. I see no bony destru ctive process. IMPRESSION: Mild left-sided hydronephrosis. Decreased left renal contrast cortical density that could relate to d ecreased renal function or pyelonephritis. Stent appears in good position. Nonobstructing right renal calculus. No change in the kidneys compared to old exam. There is mild subsegmental atelectasis at t he right lung base that is improved slightly compared to old exam. IMPRESSION:
[2017-11-07] MEDS ORDERED: ACETAMINOPHEN TAB 500 MG TAB PO STA (20:21)
[2017-11-07] MEDS ORDERED: ACETAMINOPHEN TAB 325 MG TAB PO PRN (20:50)
[2017-11-07] MEDS ORDERED: NALOXONE 0.4 MG/ML 1 ML VIAL IV PRN (20:50)
[2017-11-07] MEDS ORDERED: MORPHINE SULFATE 4 MG/ML SYRINGE IV PRN (20:50)
[2017-11-07] MEDS ORDERED: EPINEPHrine 1 MG/ML 1 ML AMP IM PRN (20:53)
[2017-11-07] MEDS ORDERED: PROCHLORPERAZINE 10 MG TAB PO PRN (20:53)
[2017-11-07] MEDS: OXYBUTYNIN CHLORIDE 5 MG TAB PO SCH (21:58)
[2017-11-07 21:59] LABS: Glucose,Whole Blood 184 mg/dL (75-99)
[2017-11-07] MEDS: ATENOLOL 25 MG TAB PO SCH (21:59)
[2017-11-07] MEDS: SODIUM CHLORIDE 0.9% 1,000 ML IV SCH (22:00)
[2017-11-07] MEDS: INSULIN ASPART 100 UNIT/ML 1 ML 10 ML VIAL SQ SCH (22:03)
[2017-11-07 22:31] VITALS: BMI 30.7
[2017-11-08] MEDS: KETOROLAC 30 MG/ML 1 ML VIAL IVP PRN ×2 (02:23→11:17)
[2017-11-08] MEDS: SODIUM CHLORIDE 0.9% 1,000 ML IV SCH ×4 (02:30→20:19)
[2017-11-08] MEDS: ONDANSETRON 4 MG/2 ML VIAL IVP PRN ×2 (06:32→15:28)
[2017-11-08] MEDS: metFORMIN 500 MG TAB PO SCH ×2 (06:46→17:59)
[2017-11-08 06:47] LABS: Glucose,Whole Blood 199 mg/dL (75-99)
[2017-11-08] MEDS: INSULIN ASPART 100 UNIT/ML 1 ML 10 ML VIAL SQ SCH ×4 (06:49→21:13)
[2017-11-08] MEDS: cefTRIAXone IN SWFI 1,000 MG/10 ML SYRINGE IVP SCH ×2 (09:12→21:18)
[2017-11-08] MEDS: CHOLECALCIFEROL 1,000 UNIT TAB PO SCH (09:12)
[2017-11-08] MEDS: LISINOPRIL 20 MG TAB PO SCH (09:13)
[2017-11-08] MEDS: HYDROCHLOROTHIAZIDE 12.5 MG CAP PO SCH (09:13)
[2017-11-08] MEDS: OXYBUTYNIN CHLORIDE 5 MG TAB PO SCH ×3 (09:13→21:07)
[2017-11-08 11:47] LABS: Glucose,Whole Blood 184 mg/dL (75-99)
--- NOTE | 2017-11-08 12:41 | P.HPIM ---
History of Present Illness H&P Date: 11/08/17 Chief Complaint: Left flank pain and fever Moni Nance is a 62-year-old female who presented to [facility] emergency department with a chief complaint of left flank pain and abdominal pain for the last several weeks. Patient states she was admitted to the hospital a month ago for urosepsis and nephrolithiasis. Patient was treated with a midline as well as stent in the left ureter. Patient states she has not felt well since discharge from the hospital. Patient states today she noticed her urine looks turbid and had increasing pain so came to the emergency department. . Patient also was complaining of fever and chills over the past few days intermittently. Patient denies any blood in the urine. On review of systems There is no headache or dizziness no chest pain no shortness of breath no cough no nausea or vomiting no diarrhea or constipation no blood in the urine or in the stools. Past Medical History Past Medical History: Diabetes Mellitus, Hypertension, Rheumatoid Arthritis (RA) Additional Past Medical History / Comment(s): neuropathy, scoliosis, kidney stones History of Any Multi-Drug Resistant Organisms: None Reported Past Surgical History: Breast Surgery Additional Past Surgical History / Comment(s): diagnostic laparoscopy, renal stent Past Anesthesia/Blood Transfusion Reactions: No Reported Reaction Additional Past Anesthesia/Blood Transfusion Reaction / Comment(s): Flutter in heart feeling from anesthesia. Past Psychological History: No Psychological Hx Reported Smoking Status: Former smoker Past Alcohol Use History: None Reported Past Drug Use History: None Reported - Past Family History Sister(s) Additional Family Medical History / Comment(s): Mental retardation- stated per pt. Medications and Allergies Home Medications Medication Instructions Recorded Confirmed Type EPINEPHrine (Auto Inject) [Epipen] 0.3 mg IM ONCE PRN #2 syringe 12/10/16 Rx Gemfibrozil [Lopid] 600 mg PO DAILY 12/10/16 11/07/17 History [place]-3 Fatty Acids/Fish Oil [Fish 1 cap PO DAILY 12/10/16 11/07/17 History Oil 1,000 mg Softgel] metFORMIN HCL [Glucophage] 1,000 mg PO BID 12/10/16 11/07/17 History Cholecalciferol (Vitamin D3) 2,000 unit PO DAILY 09/28/17 11/07/17 History [Vitamin D3] Ferrous Sulfate [Iron (65 MG 325 mg PO BID #60 tab 10/03/17 11/07/17 Rx Elemental)] Oxybutynin Chloride [Ditropan] 5 mg PO TID #21 tab 10/03/17 11/07/17 Rx Hydrochlorothiazide [Hydrodiuril] 12.5 mg PO DAILY #30 cap 10/15/17 11/07/17 Rx Lisinopril [Zestril] 20 mg PO DAILY #30 tab 10/15/17 11/07/17 Rx Atenolol [Tenormin] 25 mg PO HS 11/07/17 11/07/17 History HYDROcodone/APAP 10-325MG [[place] 0.5 tab PO Q4HR PRN 11/07/17 11/07/17 History 10-325] INSULIN LISPRO (humaLOG) [humaLOG] See Protocol SQ AC-TID 11/07/17 11/07/17 History Insulin Glargine [Lantus] 26 unit SQ HS 11/07/17 11/07/17 History Prochlorperazine [Compazine] 10 mg PO TID PRN 11/07/17 11/07/17 History Allergies Allergy/AdvReac Type Severity Reaction Status Date / Time bee venom protein (honey bee) Allergy Severe Anaphylaxis Verified 11/07/17 22:32 Sulfa (Sulfonamide Allergy Mild Rash/Hives Verified 11/07/17 22:32 Antibiotics) Physical Exam Vitals: Vital Signs Temp Pulse Pulse Resp BP BP Pulse Ox 11/08/17 11:15 98.4 F 16 121/74 98 11/08/17 06:43 97.8 F 83 16 108/69 96 11/08/17 02:39 97.6 F 84 16 115/77 95 11/08/17 00:00 90 16 11/07/17 22:30 90 16 11/07/17 21:11 98.2 F 92 18 108/54 94 L 11/07/17 20:56 98.1 F 90 18 99/49 95 11/07/17 20:31 94 18 128/60 96 11/07/17 18:00 99.3 F 94 18 99/52 96 11/07/17 16:43 100.9 F H 108 H 18 126/59 98 11/07/17 15:39 97.9 F 114 H 18 126/73 100 Intake and Output 11/07/17 11/08/17 11/08/17 22:59 06:59 14:59 Intake Total 100 Balance 100 Intake: Oral 100 Other: Voiding Method Toilet Toilet Toilet # Voids 1 1 Weight 83.915 kg 83.915 kg HEENT head normocephalic and atraumatic Neck is supple no JVD no goiter no lymphadenopathy Chest exam reveals a few scattered crackles no wheezing Cardiac exam reveals regular heart sounds S1 and S2 no gallops no murmurs Abdomen is soft with left flank and left lower quadrant tenderness no organomegaly with normal bowel sounds Extremity exam reveals no edema no cyanosis or clubbing Neurological examination reveals no gross focal deficit Results CBC & Chem 7: 11/07/17 16:01 11/07/17 16:01 Labs: Abnormal Lab Results - Last 24 Hours (Table) 11/07/17 11/07/17 11/07/17 Range/Units 16:01 16:01 16:01 WBC 15.8 H (3.8-10.6) k/uL Hgb 10.5 L (11.4-16.0) gm/dL Hct 33.7 L (34.0-46.0) % RDW 15.7 H (11.5-15.5) % Neutrophils # 11.8 H (1.3-7.7) k/uL Sodium 135 L (137-145) mmol/L Carbon Dioxide 19 L (22-30) mmol/L BUN 19 H (7-17) mg/dL Glucose 252 H (74-99) mg/dL POC Glucose (mg/dL) (75-99) mg/dL Urine Appearance Turbid H (Clear) Urine Protein 2+ H (Negative) Urine Blood Moderate H (Negative) Ur Leukocyte Esterase Large H (Negative) Urine RBC 20 H (0-5) /hpf Urine WBC >182 H (0-5) /hpf Urine WBC Clumps Many H (None) /hpf Urine Bacteria Few H (None) /hpf Hyaline Casts 14 H (0-2) /lpf Urine Mucus Rare H (None) /hpf 11/07/17 11/08/17 11/08/17 Range/Units 21:57 06:45 11:44 WBC (3.8-10.6) k/uL Hgb (11.4-16.0) gm/dL Hct (34.0-46.0) % RDW (11.5-15.5) % Neutrophils # (1.3-7.7) k/uL Sodium (137-145) mmol/L Carbon Dioxide (22-30) mmol/L BUN (7-17) mg/dL Glucose (74-99) mg/dL POC Glucose (mg/dL) 184 H 199 H 184 H (75-99) mg/dL Urine Appearance (Clear) Urine Protein (Negative) Urine Blood (Negative) Ur Leukocyte Esterase (Negative) Urine RBC (0-5) /hpf Urine WBC (0-5) /hpf Urine WBC Clumps (None) /hpf Urine Bacteria (None) /hpf Hyaline Casts (0-2) /lpf Urine Mucus (None) /hpf Microbiology - Last 24 Hours (Table) 11/07/17 16:01 Urine Culture - Preliminary Urine,Clean Catch Thrombosis Risk Factor Assmnt - Choose All That Apply Any of the Below Risk Factors Present?: Yes Each Factor Represents 1 point: Obesity (BMI >25) Other Risk Factors: Yes Each Risk Factor Represents 2 Points: Age 61-74 years Other congenital or acquired thrombophilia - If yes, enter type in comment: No Thrombosis Risk Factor Assessment Total Risk Factor Score: 3 Thrombosis Risk Factor Assessment Level: Moderate Risk Assessment and Plan Plan: #1 urinary tract infection #2 sepsis as evidenced by leukocytosis, fever and chills, tachycardia and hypotension on presentation blood pressure was 99/52, at this time continue was current IV antibiotic awaiting urine culture results. #3 underlying history of left nephrolithiasis patient was seen by urology during the last admission and as outpatient, she had the stent placement in the left ureter, she denies having passed any kidney stones, she was scheduled for surgery chest week for stent removal and possible stone removal. Will consult urology to assess patient during this admission. #4 underlying history of diabetes mellitus, will resume Lantus 26 units at bedtime and continue with insulin NovoLog sliding scale Will follow during this admission for medical management please see orders thank you very much
--- NOTE | 2017-11-08 12:57 | P.GSCN ---
History of Present Illness Consult date: 11/08/17 History of present illness: The patient is a 62-year-old female who a few weeks ago had an obstructing ureteral stone with sepsis. Dr. Walker placed a double-J catheter. She was set up for a ureteroscopy stone and stent removal on November 14. She ended up in the hospital because of increasing pain and a low-grade temperature. She had a temperature 100.9 in the emergency room. She had a white count of 15,000 and infected urine. She is brought in the hospital for IV fluids and parenteral antibiotics. She is feeling better this morning were asked see the patient. Cultures are pending. Review of Systems All systems: negative Past Medical History Past Medical History: Diabetes Mellitus, Hypertension, Rheumatoid Arthritis (RA) Additional Past Medical History / Comment(s): neuropathy, scoliosis, kidney stones History of Any Multi-Drug Resistant Organisms: None Reported Past Surgical History: Breast Surgery Additional Past Surgical History / Comment(s): diagnostic laparoscopy, renal stent Past Anesthesia/Blood Transfusion Reactions: No Reported Reaction Additional Past Anesthesia/Blood Transfusion Reaction / Comm: Flutter in heart feeling from anesthesia. Past Psychological History: No Psychological Hx Reported Smoking Status: Former smoker Past Alcohol Use History: None Reported Past Drug Use History: None Reported - Past Family History Sister(s) Additional Family Medical History / Comment(s): Mental retardation- stated per pt. Medications and Allergies Home Medications Medication Instructions Recorded Confirmed Type EPINEPHrine (Auto Inject) [Epipen] 0.3 mg IM ONCE PRN #2 syringe 12/10/16 Rx Gemfibrozil [Lopid] 600 mg PO DAILY 12/10/16 11/07/17 History [place]-3 Fatty Acids/Fish Oil [Fish 1 cap PO DAILY 12/10/16 11/07/17 History Oil 1,000 mg Softgel] metFORMIN HCL [Glucophage] 1,000 mg PO BID 12/10/16 11/07/17 History Cholecalciferol (Vitamin D3) 2,000 unit PO DAILY 09/28/17 11/07/17 History [Vitamin D3] Ferrous Sulfate [Iron (65 MG 325 mg PO BID #60 tab 10/03/17 11/07/17 Rx Elemental)] Oxybutynin Chloride [Ditropan] 5 mg PO TID #21 tab 10/03/17 11/07/17 Rx Hydrochlorothiazide [Hydrodiuril] 12.5 mg PO DAILY #30 cap 10/15/17 11/07/17 Rx Lisinopril [Zestril] 20 mg PO DAILY #30 tab 10/15/17 11/07/17 Rx Atenolol [Tenormin] 25 mg PO HS 11/07/17 11/07/17 History HYDROcodone/APAP 10-325MG [[place] 0.5 tab PO Q4HR PRN 11/07/17 11/07/17 History 10-325] INSULIN LISPRO (humaLOG) [humaLOG] See Protocol SQ AC-TID 11/07/17 11/07/17 History Insulin Glargine [Lantus] 26 unit SQ HS 11/07/17 11/07/17 History Prochlorperazine [Compazine] 10 mg PO TID PRN 11/07/17 11/07/17 History Allergies Allergy/AdvReac Type Severity Reaction Status Date / Time bee venom protein (honey bee) Allergy Severe Anaphylaxis Verified 11/07/17 22:32 Sulfa (Sulfonamide Allergy Mild Rash/Hives Verified 11/07/17 22:32 Antibiotics) Surgical - Exam Vital Signs Temp Pulse Resp BP Pulse Ox 97.9 F 114 H 18 126/73 100 11/07/17 15:39 11/07/17 15:39 11/07/17 15:39 11/07/17 15:39 11/07/17 15:39 - General no distress - Eyes PERRL - ENT no hearing loss - Neck trachea midline - Respiratory normal expansion, normal respiratory effort - Abdomen Abdomen: soft, non tender - Neurologic normal coordination, normal sensation - Musculoskeletal normal posture - Psychiatric oriented to time, oriented to person, oriented to place, speech is normal, memory intact Results - Labs 11/07/17 16:01 11/07/17 16:01 Abnormal Lab Results - Last 24 Hours (Table) 11/07/17 11/07/17 11/07/17 Range/Units 16:01 16:01 16:01 WBC 15.8 H (3.8-10.6) k/uL Hgb 10.5 L (11.4-16.0) gm/dL Hct 33.7 L (34.0-46.0) % RDW 15.7 H (11.5-15.5) % Neutrophils # 11.8 H (1.3-7.7) k/uL Sodium 135 L (137-145) mmol/L Carbon Dioxide 19 L (22-30) mmol/L BUN 19 H (7-17) mg/dL Glucose 252 H (74-99) mg/dL POC Glucose (mg/dL) (75-99) mg/dL Urine Appearance Turbid H (Clear) Urine Protein 2+ H (Negative) Urine Blood Moderate H (Negative) Ur Leukocyte Esterase Large H (Negative) Urine RBC 20 H (0-5) /hpf Urine WBC >182 H (0-5) /hpf Urine WBC Clumps Many H (None) /hpf Urine Bacteria Few H (None) /hpf Hyaline Casts 14 H (0-2) /lpf Urine Mucus Rare H (None) /hpf 11/07/17 11/08/17 11/08/17 Range/Units 21:57 06:45 11:44 WBC (3.8-10.6) k/uL Hgb (11.4-16.0) gm/dL Hct (34.0-46.0) % RDW (11.5-15.5) % Neutrophils # (1.3-7.7) k/uL Sodium (137-145) mmol/L Carbon Dioxide (22-30) mmol/L BUN (7-17) mg/dL Glucose (74-99) mg/dL POC Glucose (mg/dL) 184 H 199 H 184 H (75-99) mg/dL Urine Appearance (Clear) Urine Protein (Negative) Urine Blood (Negative) Ur Leukocyte Esterase (Negative) Urine RBC (0-5) /hpf Urine WBC (0-5) /hpf Urine WBC Clumps (None) /hpf Urine Bacteria (None) /hpf Hyaline Casts (0-2) /lpf Urine Mucus (None) /hpf Microbiology - Last 24 Hours (Table) 11/07/17 16:01 Urine Culture - Preliminary Urine,Clean Catch Diabetes panel 11/07/17 Range/Units 16:01 Sodium 135 L (137-145) mmol/L Potassium 4.0 (3.5-5.1) mmol/L Chloride 99 (98-107) mmol/L Carbon Dioxide 19 L (22-30) mmol/L BUN 19 H (7-17) mg/dL Creatinine 0.95 (0.52-1.04) mg/dL Glucose 252 H (74-99) mg/dL Calcium 9.7 (8.4-10.2) mg/dL AST 15 (14-36) U/L ALT 21 (9-52) U/L Alkaline Phosphatase 92 (38-126) U/L Total Protein 7.3 (6.3-8.2) g/dL Albumin 4.1 (3.5-5.0) g/dL Calcium panel 11/07/17 Range/Units 16:01 Calcium 9.7 (8.4-10.2) mg/dL Albumin 4.1 (3.5-5.0) g/dL Pituitary panel 11/07/17 Range/Units 16:01 Sodium 135 L (137-145) mmol/L Potassium 4.0 (3.5-5.1) mmol/L Chloride 99 (98-107) mmol/L Carbon Dioxide 19 L (22-30) mmol/L BUN 19 H (7-17) mg/dL Creatinine 0.95 (0.52-1.04) mg/dL Glucose 252 H (74-99) mg/dL Calcium 9.7 (8.4-10.2) mg/dL Adrenal panel 11/07/17 Range/Units 16:01 Sodium 135 L (137-145) mmol/L Potassium 4.0 (3.5-5.1) mmol/L Chloride 99 (98-107) mmol/L Carbon Dioxide 19 L (22-30) mmol/L BUN 19 H (7-17) mg/dL Creatinine 0.95 (0.52-1.04) mg/dL Glucose 252 H (74-99) mg/dL Calcium 9.7 (8.4-10.2) mg/dL Total Bilirubin 0.5 (0.2-1.3) mg/dL AST 15 (14-36) U/L ALT 21 (9-52) U/L Alkaline Phosphatase 92 (38-126) U/L Total Protein 7.3 (6.3-8.2) g/dL Albumin 4.1 (3.5-5.0) g/dL - Imaging CT scan - abdomen: report reviewed, image reviewed CT scan - chest: image reviewed CT scan - pelvis: report reviewed, image reviewed Assessment and Plan Assessment: Impression: Probable urinary tract infection with sepsis. History of previously placed stent due to an obstructing stone and urinary tract infection with sepsis. Medical illnesses including diabetes mellitus and rheumatoid arthritis. Recommendations: The patient should continue with IV fluids and antibiotics until cultures are finalized. She can be placed on oral antibiotics at that point in time. Whether we will remove the stone and stent during this hospitalization or as previously planned by Dr. Walker on November 14 has yet to be determined.
[2017-11-08 14:34] LABS: Hemoglobin A1C 7.9 % (4.0-6.0)
[2017-11-08 17:09] LABS: Glucose,Whole Blood 229 mg/dL (75-99)
[2017-11-08] MEDS: HYDROcodone/APAP 10-325MG 1 EACH TAB PO PRN (18:02)
[2017-11-08 21:07] LABS: Glucose,Whole Blood 165 mg/dL (75-99)
[2017-11-08] MEDS: ATENOLOL 25 MG TAB PO SCH (21:07)
[2017-11-08] MEDS: INSULIN DETEMIR 100 UNIT/ML 10 ML VIAL SQ SCH (21:41)
[2017-11-09] MEDS: KETOROLAC 30 MG/ML 1 ML VIAL IVP PRN ×2 (00:16→09:01)
[2017-11-09] MEDS: ONDANSETRON 4 MG/2 ML VIAL IVP PRN ×3 (02:03→23:13)
[2017-11-09] MEDS: HYDROcodone/APAP 10-325MG 1 EACH TAB PO PRN ×3 (02:13→21:21)
[2017-11-09] MEDS: SODIUM CHLORIDE 0.9% 1,000 ML IV SCH ×3 (02:15→14:11)
[2017-11-09 06:52] LABS: Glucose,Whole Blood 89 mg/dL (75-99)
[2017-11-09] MEDS: INSULIN ASPART 100 UNIT/ML 1 ML 10 ML VIAL SQ SCH ×4 (06:53→21:10)
[2017-11-09] MEDS: metFORMIN 500 MG TAB PO SCH ×2 (07:09→17:49)
[2017-11-09 07:47] LABS: Basophils % (A) 0 %; Eosinophils # (A) 0.4 k/uL (0-0.7); Eosinophils % (A) 5 %; HCT 28.1 % (34.0-46.0); Hypochromasia Slight; Lymphocytes # (A) 2.8 k/uL (1.0-4.8); Lymphocytes % (A) 33 %; MCH 27.7 pg (25.0-35.0); MCHC 31.3 g/dL (31.0-37.0); MCV 88.4 fL (80.0-100.0); Mean Platelet Volume 6.5; Monocytes # (A) 0.5 k/uL (0-1.0); Monocytes % (A) 6 %; Neutrophils # (A) 4.3 k/uL (1.3-7.7); Neutrophils % (A) 51 %; Platelet Count 324 k/uL (150-450); RBC 3.18 m/uL (3.80-5.40); RDW 15.6 % (11.5-15.5); WBC 8.3 k/uL (3.8-10.6)
[2017-11-09 07:52] LABS: HGB 8.8 gm/dL (11.4-16.0)
[2017-11-09 08:02] LABS: ALT 25 U/L (9-52); AST 9 U/L (14-36); Alkaline Phosphatase 59 U/L (38-126); Anion Gap 6 mmol/L; Blood Urea Nitrogen 15 mg/dL (7-17); Calcium 8.7 mg/dL (8.4-10.2); Carbon Dioxide 20 mmol/L (22-30); Chloride 118 mmol/L (98-107); Glucose 79 mg/dL (74-99); Potassium 3.7 mmol/L (3.5-5.1); Sodium 144 mmol/L (137-145); Total Bilirubin <0.1 mg/dL (0.2-1.3); Total Protein 5.7 g/dL (6.3-8.2)
[2017-11-09] MEDS: cefTRIAXone IN SWFI 1,000 MG/10 ML SYRINGE IVP SCH ×2 (09:01→21:10)
[2017-11-09] MEDS: HYDROCHLOROTHIAZIDE 12.5 MG CAP PO SCH (09:04)
[2017-11-09] MEDS: LISINOPRIL 20 MG TAB PO SCH (09:04)
[2017-11-09] MEDS: CHOLECALCIFEROL 1,000 UNIT TAB PO SCH (09:04)
[2017-11-09] MEDS: OXYBUTYNIN CHLORIDE 5 MG TAB PO SCH ×3 (09:04→21:41)
--- NOTE | 2017-11-09 10:20 | P.PN ---
Subjective Progress Note Date: 11/09/17 The patient is in the hospital with a urinary tract infection with sepsis. She is status post stent placement by Dr. Walker. She came in the hospital with fever and chills. He is growing a gram-negative philipp. She is feeling better. Her temperature is down. She's scheduled for November 14 for a stone and stent removal. We will see her culture shows sews to decide what oral antibiotic to place her on. I think this would be an appropriate time to remove her stone and stent. Objective - Vital Signs Vital signs: Vital Signs Temp 98.4 F 11/09/17 07:49 Pulse 83 11/09/17 07:49 Resp 18 11/09/17 07:49 BP 114/71 11/09/17 07:49 Pulse Ox 96 11/09/17 07:49 Intake & Output 11/08/17 11/09/17 11/09/17 18:59 06:59 18:59 Weight 83.915 kg Other: Voiding Method Toilet Toilet # Voids 3 1 - Labs CBC & Chem 7: 11/09/17 07:29 11/09/17 07:29 Labs: Abnormal Lab Results - Last 24 Hours (Table) 11/08/17 11/08/17 11/08/17 Range/Units 11:44 17:07 21:05 RBC (3.80-5.40) m/uL Hgb (11.4-16.0) gm/dL Hct (34.0-46.0) % RDW (11.5-15.5) % Chloride (98-107) mmol/L Carbon Dioxide (22-30) mmol/L POC Glucose (mg/dL) 184 H 229 H 165 H (75-99) mg/dL Total Bilirubin (0.2-1.3) mg/dL AST (14-36) U/L Total Protein (6.3-8.2) g/dL Albumin (3.5-5.0) g/dL 11/09/17 11/09/17 Range/Units 07:29 07:29 RBC 3.18 L (3.80-5.40) m/uL Hgb 8.8 L D (11.4-16.0) gm/dL Hct 28.1 L (34.0-46.0) % RDW 15.6 H (11.5-15.5) % Chloride 118 H (98-107) mmol/L Carbon Dioxide 20 L (22-30) mmol/L POC Glucose (mg/dL) (75-99) mg/dL Total Bilirubin <0.1 L (0.2-1.3) mg/dL AST 9 L (14-36) U/L Total Protein 5.7 L (6.3-8.2) g/dL Albumin 3.0 L (3.5-5.0) g/dL Microbiology - Last 24 Hours (Table) 11/07/17 17:50 Blood Culture - Preliminary Blood No Growth after 24 hours 11/07/17 16:01 Urine Culture - Preliminary Urine,Clean Catch Gram Neg Bacilli
--- NOTE | 2017-11-09 11:06 | P.PN ---
Subjective Progress Note Date: 11/09/17 Moni Nance is a 62-year-old female who presented to [facility] emergency department with a chief complaint of left flank pain and abdominal pain for the last several weeks. Patient states she was admitted to the hospital a month ago for urosepsis and nephrolithiasis. Patient was treated with a midline as well as stent in the left ureter. Patient states she has not felt well since discharge from the hospital. Patient states today she noticed her urine looks turbid and had increasing pain so came to the emergency department. . Patient also was complaining of fever and chills over the past few days intermittently. Patient denies any blood in the urine. On 11/09/2017 patient is feeling better, no new episodes of fever, white blood count is down from 15.8 to 8.3 hemoglobin is down from 10.5-8.8 urine culture is positive for gram-negative bacilli still awaiting identity and sensitivity, continue with current antibiotic at this time. Objective - Vital Signs Vital signs: Vital Signs Temp 98.4 F 11/09/17 07:49 Pulse 83 11/09/17 07:49 Resp 18 11/09/17 07:49 BP 114/71 11/09/17 07:49 Pulse Ox 96 11/09/17 07:49 Intake & Output 11/08/17 11/09/17 11/09/17 18:59 06:59 18:59 Weight 83.915 kg Other: Voiding Method Toilet Toilet # Voids 3 1 - Exam HEENT head normocephalic and atraumatic Neck is supple no JVD no goiter no lymphadenopathy Chest exam reveals a few scattered crackles no wheezing Cardiac exam reveals regular heart sounds S1 and S2 no gallops no murmurs Abdomen is soft with left flank and left lower quadrant tenderness no organomegaly with normal bowel sounds Extremity exam reveals no edema no cyanosis or clubbing Neurological examination reveals no gross focal deficit - Labs CBC & Chem 7: 11/09/17 07:29 11/09/17 07:29 Labs: Abnormal Lab Results - Last 24 Hours (Table) 11/08/17 11/08/17 11/08/17 Range/Units 11:44 17:07 21:05 RBC (3.80-5.40) m/uL Hgb (11.4-16.0) gm/dL Hct (34.0-46.0) % RDW (11.5-15.5) % Chloride (98-107) mmol/L Carbon Dioxide (22-30) mmol/L POC Glucose (mg/dL) 184 H 229 H 165 H (75-99) mg/dL Total Bilirubin (0.2-1.3) mg/dL AST (14-36) U/L Total Protein (6.3-8.2) g/dL Albumin (3.5-5.0) g/dL 11/09/17 11/09/17 Range/Units 07: 07:29 RBC 3.18 L (3.80-5.40) m/uL Hgb 8.8 L D (11.4-16.0) gm/dL Hct 28.1 L (34.0-46.0) % RDW 15.6 H (11.5-15.5) % Chloride 118 H (98-107) mmol/L Carbon Dioxide 20 L (22-30) mmol/L POC Glucose (mg/dL) (75-99) mg/dL Total Bilirubin <0.1 L (0.2-1.3) mg/dL AST 9 L (14-36) U/L Total Protein 5.7 L (6.3-8.2) g/dL Albumin 3.0 L (3.5-5.0) g/dL Microbiology - Last 24 Hours (Table) 11/07/17 17:50 Blood Culture - Preliminary Blood No Growth after 24 hours 11/07/17 16:01 Urine Culture - Preliminary Urine,Clean Catch Gram Neg Bacilli Assessment and Plan Plan: #1 urinary tract infection, improving clinically, white blood count is down to 8.3 no new episodes of fever, urine culture positive for gram-negative bacilli, awaiting ID and sensitivity, continue was Rocephin 1 g every 12 hours at this time #2 sepsis as evidenced by leukocytosis, fever and chills, tachycardia and hypotension on presentation blood pressure was 99/52, at this time continue was current IV antibiotic awaiting urine culture results. #3 underlying history of left nephrolithiasis patient was seen by urology during the last admission and as outpatient, she had the stent placement in the left ureter, she denies having passed any kidney stones, she was scheduled for surgery chest week for stent removal and possible stone removal. Will consult urology to assess patient during this admission. #4 underlying history of diabetes mellitus, will resume Lantus 26 units at bedtime and continue with insulin NovoLog sliding scale Will follow during this admission for medical management
[2017-11-09 11:42] LABS: Glucose,Whole Blood 125 mg/dL (75-99)
[2017-11-09 17:04] LABS: Glucose,Whole Blood 189 mg/dL (75-99)
[2017-11-09 20:57] LABS: Glucose,Whole Blood 155 mg/dL (75-99)
[2017-11-09] MEDS: ATENOLOL 25 MG TAB PO SCH (21:10)
[2017-11-09] MEDS: INSULIN DETEMIR 100 UNIT/ML 10 ML VIAL SQ SCH (21:11)
[2017-11-10] MEDS: KETOROLAC 30 MG/ML 1 ML VIAL IVP PRN ×2 (01:03→07:14)
[2017-11-10] MEDS: SODIUM CHLORIDE 0.9% 1,000 ML IV SCH (05:19)
[2017-11-10 07:12] LABS: Glucose,Whole Blood 81 mg/dL (75-99)
[2017-11-10] MEDS: INSULIN ASPART 100 UNIT/ML 1 ML 10 ML VIAL SQ SCH ×4 (07:30→21:33)
[2017-11-10] MEDS: metFORMIN 500 MG TAB PO SCH ×2 (08:31→17:34)
[2017-11-10] MEDS: OXYBUTYNIN CHLORIDE 5 MG TAB PO SCH ×3 (08:32→21:33)
[2017-11-10] MEDS: HYDROCHLOROTHIAZIDE 12.5 MG CAP PO SCH (08:32)
[2017-11-10] MEDS: LISINOPRIL 20 MG TAB PO SCH (08:32)
[2017-11-10] MEDS: CHOLECALCIFEROL 1,000 UNIT TAB PO SCH (08:33)
[2017-11-10] MEDS: cefTRIAXone IN SWFI 1,000 MG/10 ML SYRINGE IVP SCH ×2 (09:02→20:17)
[2017-11-10 11:35] LABS: Glucose,Whole Blood 119 mg/dL (75-99)
[2017-11-10 11:41] LABS: Basophils % (A) 1 %; Eosinophils # (A) 0.3 k/uL (0-0.7); Eosinophils % (A) 4 %; HCT 27.6 % (34.0-46.0); HGB 8.6 gm/dL (11.4-16.0); Hypochromasia Moderate; Lymphocytes # (A) 2.2 k/uL (1.0-4.8); Lymphocytes % (A) 29 %; MCH 27.8 pg (25.0-35.0); MCHC 31.1 g/dL (31.0-37.0); MCV 89.3 fL (80.0-100.0); Mean Platelet Volume 6.8; Monocytes # (A) 0.3 k/uL (0-1.0); Monocytes % (A) 5 %; Neutrophils # (A) 4.4 k/uL (1.3-7.7); Neutrophils % (A) 59 %; Platelet Count 346 k/uL (150-450); RBC 3.09 m/uL (3.80-5.40); RDW 15.6 % (11.5-15.5); WBC 7.5 k/uL (3.8-10.6)
[2017-11-10 11:49] LABS: ALT 33 U/L (9-52); AST 14 U/L (14-36); Albumin 3.2 g/dL (3.5-5.0); Alkaline Phosphatase 62 U/L (38-126); Anion Gap 8 mmol/L; Blood Urea Nitrogen 16 mg/dL (7-17); Calcium 8.9 mg/dL (8.4-10.2); Carbon Dioxide 19 mmol/L (22-30); Chloride 115 mmol/L (98-107); Glucose 112 mg/dL (74-99); Potassium 4.4 mmol/L (3.5-5.1); Sodium 142 mmol/L (137-145); Total Bilirubin <0.1 mg/dL (0.2-1.3)
[2017-11-10] MEDS: HYDROcodone/APAP 10-325MG 1 EACH TAB PO PRN ×3 (12:12→22:37)
--- NOTE | 2017-11-10 13:22 | P.PN ---
Subjective Progress Note Date: 11/10/17 Moni Nnace is a 62-year-old female who presented to [facility] emergency department with a chief complaint of left flank pain and abdominal pain for the last several weeks. Patient states she was admitted to the hospital a month ago for urosepsis and nephrolithiasis. Patient was treated with a midline as well as stent in the left ureter. Patient states she has not felt well since discharge from the hospital. Patient states today she noticed her urine looks turbid and had increasing pain so came to the emergency department. . Patient also was complaining of fever and chills over the past few days intermittently. Patient denies any blood in the urine. On 11/09/2017 patient is feeling better, no new episodes of fever, white blood count is down from 15.8 to 8.3 hemoglobin is down from 10.5-8.8 urine culture is positive for gram-negative bacilli still awaiting identity and sensitivity, continue with current antibiotic at this time. 11/10/2017 patient still complaining of left flank pain. White count remains normal. She's been followed by urology. The recommending lithotripsy and stent removal on November 14 outpatient. Patient hemoglobin has dropped to 8.6. A1c 7.9. Patient is still requiring the Toradol for left flank pain. Fluids will be hep-locked. She is eating and drinking. She denies any chest pain or shortness of breath. She has having occasional nausea. Objective - Vital Signs Vital signs: Vital Signs Temp 98.2 F 11/10/17 13:13 Pulse 69 11/10/17 13:13 Resp 18 11/10/17 13:13 BP 135/71 11/10/17 13:13 Pulse Ox 97 11/10/17 13:13 Intake & Output 11/09/17 11/10/17 11/10/17 18:59 06:59 18:59 Intake Total 600 Balance 600 Intake: Oral 600 Other: # Voids 3 1 - Exam Head normocephalic Neck supple Lungs clear to auscultation bilaterally no wheezing or crackles Heart regular rate and rhythm S1-S2, no rub or gallop Abdomen is soft nondistended positive bowel sounds no hepatosplenomegaly. Left flank pain Extremities no edema Neuro alert and orientated to 3 - Labs CBC & Chem 7: 11/10/17 11:22 11/10/17 11:22 Labs: Abnormal Lab Results - Last 24 Hours (Table) 11/09/17 11/09/17 11/10/17 Range/Units 17:02 20:53 11:22 RBC 3.09 L (3.80-5.40) m/uL Hgb 8.6 L (11.4-16.0) gm/dL Hct 27.6 L (34.0-46.0) % RDW 15.6 H (11.5-15.5) % Chloride (98-107) mmol/L Carbon Dioxide (22-30) mmol/L Glucose (74-99) mg/dL POC Glucose (mg/dL) 189 H 155 H (75-99) mg/dL Total Bilirubin (0.2-1.3) mg/dL Total Protein (6.3-8.2) g/dL Albumin (3.5-5.0) g/dL 11/10/17 11/10/17 Range/Units 11:22 11:33 RBC (3.80-5.40) m/uL Hgb (11.4-16.0) gm/dL Hct (34.0-46.0) % RDW (11.5-15.5) % Chloride 115 H (98-107) mmol/L Carbon Dioxide 19 L (22-30) mmol/L Glucose 112 H (74-99) mg/dL POC Glucose (mg/dL) 119 H (75-99) mg/dL Total Bilirubin <0.1 L (0.2-1.3) mg/dL Total Protein 6.0 L (6.3-8.2) g/dL Albumin 3.2 L (3.5-5.0) g/dL Microbiology - Last 24 Hours (Table) 11/07/17 17:50 Blood Culture - Preliminary Blood No Growth after 48 hours 11/07/17 16:01 Urine Culture - Final Urine,Clean Catch Escherichia coli Assessment and Plan Assessment: #1 urinary tract infection, improving clinically, white blood count is down to 8.3 no new episodes of fever, urine culture growing E. coli sensitive to Rocephin #2 sepsis with septic shock. evidenced by leukocytosis, fever and chills, tachycardia and hypotension on presentation blood pressure was 99/52, at this time continue was current IV antibiotic. Improved with IV fluids. Discontinue IV fluids #3 underlying history of left nephrolithiasis patient was seen by urology during the last admission and as outpatient, she had the stent placement in the left ureter, she denies having passed any kidney stones, she was scheduled for surgery with stone and stent removal on Friday outpatient #4 underlying history of diabetes mellitus, will resume Lantus 26 units at bedtime and continue with insulin NovoLog sliding scale #5 anemia check iron studies DVT prophylaxis SCD and GI prophylaxis Protonix I performed an examination of the patient and discussed their management with the physician Screw Machine Operator Swiss Type. I have reviewed the Physician Screw Machine Operator Swiss Type's notes and agree with the documented findings and plan of care
[2017-11-10 17:02] LABS: Glucose,Whole Blood 170 mg/dL (75-99)
[2017-11-10] MEDS: PANTOPRAZOLE 40 MG TABLET PO SCH (17:19)
[2017-11-10] MEDS: DOCUSATE 100 MG CAP PO SCH (17:19)
[2017-11-10 19:23] LABS: Iron Saturation 11.52 (12.00-45.00)
[2017-11-10] MEDS: ATENOLOL 25 MG TAB PO SCH (20:17)
[2017-11-10 21:24] LABS: Glucose,Whole Blood 160 mg/dL (75-99)
[2017-11-10] MEDS: INSULIN DETEMIR 100 UNIT/ML 10 ML VIAL SQ SCH (21:33)
[2017-11-11] MEDS: HYDROcodone/APAP 10-325MG 1 EACH TAB PO PRN ×2 (06:22→11:55)
--- NOTE | 2017-11-11 06:43 | P.PN ---
Subjective Progress Note Date: 11/11/17 The patient has an E. coli urinary infection. It is pansensitive. I recommend she go home on oral antibiotics and she have the stent and stone removed as scheduled on November 14 by Objective - Vital Signs Vital signs: Vital Signs Temp 97.7 F 11/10/17 19:55 Pulse 60 11/10/17 19:55 Resp 16 11/10/17 19:55 BP 149/65 11/10/17 19:55 Pulse Ox 98 11/10/17 19:55 Intake & Output 11/10/17 11/10/17 11/11/17 06:59 18:59 06:59 Intake Total 600 1600 400 Balance 600 1600 400 Intake: Oral 600 1600 400 Other: # Voids 1 4 1 - Labs CBC & Chem 7: 11/10/17 11:22 11/10/17 11:22 Labs: Abnormal Lab Results - Last 24 Hours (Table) 11/10/17 11/10/17 11/10/17 Range/Units 11:22 11:22 11:33 RBC 3.09 L (3.80-5.40) m/uL Hgb 8.6 L (11.4-16.0) gm/dL Hct 27.6 L (34.0-46.0) % RDW 15.6 H (11.5-15.5) % Chloride 115 H (98-107) mmol/L Carbon Dioxide 19 L (22-30) mmol/L Glucose 112 H (74-99) mg/dL POC Glucose (mg/dL) 119 H (75-99) mg/dL Total Bilirubin <0.1 L (0.2-1.3) mg/dL Total Protein 6.0 L (6.3-8.2) g/dL Albumin 3.2 L (3.5-5.0) g/dL 11/10/17 11/10/17 Range/Units 17:00 21:22 RBC (3.80-5.40) m/uL Hgb (11.4-16.0) gm/dL Hct (34.0-46.0) % RDW (11.5-15.5) % Chloride (98-107) mmol/L Carbon Dioxide (22-30) mmol/L Glucose (74-99) mg/dL POC Glucose (mg/dL) 170 H 160 H (75-99) mg/dL Total Bilirubin (0.2-1.3) mg/dL Total Protein (6.3-8.2) g/dL Albumin (3.5-5.0) g/dL Microbiology - Last 24 Hours (Table) 11/07/17 17:50 Blood Culture - Preliminary Blood No Growth after 72 hours
[2017-11-11 06:54] LABS: Glucose,Whole Blood 81 mg/dL (75-99)
[2017-11-11 07:25] LABS: ALT 23 U/L (9-52); AST 11 U/L (14-36); Albumin 2.9 g/dL (3.5-5.0); Alkaline Phosphatase 58 U/L (38-126); Anion Gap 5 mmol/L; Blood Urea Nitrogen 16 mg/dL (7-17); Carbon Dioxide 24 mmol/L (22-30); Chloride 114 mmol/L (98-107); Glucose 79 mg/dL (74-99); Potassium 4.2 mmol/L (3.5-5.1); Sodium 143 mmol/L (137-145); Total Bilirubin <0.1 mg/dL (0.2-1.3); Total Protein 5.5 g/dL (6.3-8.2)
[2017-11-11] MEDS: metFORMIN 500 MG TAB PO SCH ×2 (08:03→17:22)
[2017-11-11] MEDS: DOCUSATE 100 MG CAP PO SCH ×2 (08:03→21:14)
[2017-11-11] MEDS: LISINOPRIL 20 MG TAB PO SCH (08:03)
[2017-11-11] MEDS: PANTOPRAZOLE 40 MG TABLET PO SCH (08:04)
[2017-11-11] MEDS: CHOLECALCIFEROL 1,000 UNIT TAB PO SCH (08:04)
[2017-11-11] MEDS: cefTRIAXone IN SWFI 1,000 MG/10 ML SYRINGE IVP SCH ×2 (08:04→21:15)
[2017-11-11 08:27] LABS: Basophils % (A) 1 %; Eosinophils # (A) 0.5 k/uL (0-0.7); Eosinophils % (A) 6 %; HCT 26.7 % (34.0-46.0); HGB 8.5 gm/dL (11.4-16.0); Hypochromasia Slight; Lymphocytes # (A) 2.8 k/uL (1.0-4.8); Lymphocytes % (A) 31 %; MCHC 31.7 g/dL (31.0-37.0); MCV 88.3 fL (80.0-100.0); Monocytes # (A) 0.4 k/uL (0-1.0); Monocytes % (A) 5 %; Neutrophils # (A) 4.9 k/uL (1.3-7.7); Neutrophils % (A) 55 %; Platelet Count 420 k/uL (150-450); RBC 3.03 m/uL (3.80-5.40); RDW 15.6 % (11.5-15.5); WBC 8.9 k/uL (3.8-10.6)
[2017-11-11] MEDS: INSULIN ASPART 100 UNIT/ML 1 ML 10 ML VIAL SQ SCH ×4 (08:32→21:16)
--- NOTE | 2017-11-11 11:09 | P.PN ---
Subjective Progress Note Date: 11/11/17 Moni Nance is a 62-year-old female who presented to [facility] emergency department with a chief complaint of left flank pain and abdominal pain for the last several weeks. Patient states she was admitted to the hospital a month ago for urosepsis and nephrolithiasis. Patient was treated with a midline as well as stent in the left ureter. Patient states she has not felt well since discharge from the hospital. Patient states today she noticed her urine looks turbid and had increasing pain so came to the emergency department. . Patient also was complaining of fever and chills over the past few days intermittently. Patient denies any blood in the urine. On 11/09/2017 patient is feeling better, no new episodes of fever, white blood count is down from 15.8 to 8.3 hemoglobin is down from 10.5-8.8 urine culture is positive for gram-negative bacilli still awaiting identity and sensitivity, continue with current antibiotic at this time. 11/10/2017 patient still complaining of left flank pain. White count remains normal. She's been followed by urology. The recommending stone and stent removal on November 14 outpatient. Patient hemoglobin has dropped to 8.6. A1c 7.9. Patient is still requiring the Toradol for left flank pain. Fluids will be hep-locked. She is eating and drinking. She denies any chest pain or shortness of breath. She has having occasional nausea. 11/11/2017 patient suffering with left flank pain. She'll be having the total stone and stent removed November 14 outpatient. Patient is concerned about going home to early. She's currently on IV Rocephin treating recurrent UTI. And she still occasionally needs the Toradol. At this time recommending continuing current treatment in hospital and discharging on Objective - Vital Signs Vital signs: Vital Signs Temp 97.7 F 11/11/17 08:20 Pulse 63 11/11/17 08:20 Resp 18 11/11/17 08:20 BP 109/53 11/11/17 08:20 Pulse Ox 96 11/11/17 08:20 Intake & Output 11/10/17 11/11/17 11/11/17 18:59 06:59 18:59 Intake Total 1600 400 Output Total 250 Balance 1600 400 -250 Intake: Oral 1600 400 Output: Urine 250 Other: Voiding Method Toilet # Voids 4 1 - Exam Head normocephalic Neck supple Lungs clear to auscultation bilaterally no wheezing or crackles Heart regular rate and rhythm S1-S2, no rub or gallop Abdomen is soft nondistended positive bowel sounds no hepatosplenomegaly. Left flank pain Extremities no edema Neuro alert and orientated to 3 - Labs CBC & Chem 7: 11/11/17 06:47 11/11/17 06:47 Labs: Abnormal Lab Results - Last 24 Hours (Table) 11/10/17 11/10/17 11/10/17 Range/Units 11:22 11:22 11:22 RBC 3.09 L (3.80-5.40) m/uL Hgb 8.6 L (11.4-16.0) gm/dL Hct 27.6 L (34.0-46.0) % RDW 15.6 H (11.5-15.5) % Chloride 115 H (98-107) mmol/L Carbon Dioxide 19 L (22-30) mmol/L Glucose 112 H (74-99) mg/dL POC Glucose (mg/dL) (75-99) mg/dL Iron 31 L (50-170) ug/dL Iron Saturation 11.52 L (12.00-45.00) Total Bilirubin <0.1 L (0.2-1.3) mg/dL AST (14-36) U/L Total Protein 6.0 L (6.3-8.2) g/dL Albumin 3.2 L (3.5-5.0) g/dL 11/10/17 11/10/17 11/10/17 Range/Units 11:33 17:00 21:22 RBC (3.80-5.40) m/uL Hgb (11.4-16.0) gm/dL Hct (34.0-46.0) % RDW (11.5-15.5) % Chloride (98-107) mmol/L Carbon Dioxide (22-30) mmol/L Glucose (74-99) mg/dL POC Glucose (mg/dL) 119 H 170 H 160 H (75-99) mg/dL Iron (50-170) ug/dL Iron Saturation (12.00-45.00) Total Bilirubin (0.2-1.3) mg/dL AST (14-36) U/L Total Protein (6.3-8.2) g/dL Albumin (3.5-5.0) g/dL 11/11/17 11/11/17 Range/Units 06:47 06:47 RBC 3.03 L (3.80-5.40) m/uL Hgb 8.5 L (11.4-16.0) gm/dL Hct 26.7 L (34.0-46.0) % RDW 15.6 H (11.5-15.5) % Chloride 114 H (98-107) mmol/L Carbon Dioxide (22-30) mmol/L Glucose (74-99) mg/dL POC Glucose (mg/dL) (75-99) mg/dL Iron (50-170) ug/dL Iron Saturation (12.00-45.00) Total Bilirubin <0.1 L (0.2-1.3) mg/dL AST 11 L (14-36) U/L Total Protein 5.5 L (6.3-8.2) g/dL Albumin 2.9 L (3.5-5.0) g/dL Microbiology - Last 24 Hours (Table) 11/07/17 17:50 Blood Culture - Preliminary Blood No Growth after 72 hours Assessment and Plan Assessment: #1 urinary tract infection, improving clinically, white blood count normal no new episodes of fever, urine culture growing E. coli sensitive to Rocephin. At this came we'll continue with the IV Rocephin. Anticipate switching her over to Ceftin for 7 more days at discharge #2 sepsis with septic shock. evidenced by leukocytosis, fever and chills, tachycardia and hypotension on presentation blood pressure was 99/52, at this time continue was current IV antibiotic. Improved with IV fluids. Discontinue IV fluids #3 underlying history of left nephrolithiasis patient was seen by urology during the last admission and as outpatient, she had the stent placement in the left ureter, she denies having passed any kidney stones, she was scheduled for surgery with stone and stent removal on Friday outpatient #4 underlying history of diabetes mellitus, will resume Lantus 26 units at bedtime and continue with insulin NovoLog sliding scale #5 iron deficiency anemia: Hemoglobin 8.5. No active signs of bleeding. Start ferrous sulfate 325 mg twice a day DVT prophylaxis subcu heparin and GI prophylaxis Protonix Anticipating discharge on in preparation for her urological procedure on Friday outpatient I performed an examination of the patient and discussed their management with the physician Reconciliation Accountant. I have reviewed the Physician Reconciliation Accountant's notes and agree with the documented findings and plan of care Dr. Gonzalez will be on vacation startin the evening of November 11. Dr. TRACEY Bruce will be covering
[2017-11-11 11:22] LABS: Glucose,Whole Blood 110 mg/dL (75-99)
[2017-11-11] MEDS: HYDROCHLOROTHIAZIDE 12.5 MG CAP PO SCH (11:48)
[2017-11-11] MEDS: OXYBUTYNIN CHLORIDE 5 MG TAB PO SCH ×3 (11:48→21:15)
[2017-11-11] MEDS: FERROUS SULFATE 325 MG TAB PO SCH ×2 (11:49→21:14)
[2017-11-11] MEDS: ONDANSETRON 4 MG/2 ML VIAL IVP PRN (12:46)
[2017-11-11 17:02] LABS: Glucose,Whole Blood 207 mg/dL (75-99)
[2017-11-11] MEDS: HYDROcodone/APAP 5-325MG 1 EACH TAB PO PRN (18:36)
[2017-11-11 20:55] LABS: Glucose,Whole Blood 151 mg/dL (75-99)
[2017-11-11] MEDS: ATENOLOL 25 MG TAB PO SCH (21:15)
[2017-11-11] MEDS: HEPARIN SODIUM,PORCINE 5,000 UNIT/ML 1 ML VIAL SQ SCH (21:15)
[2017-11-11] MEDS: INSULIN DETEMIR 100 UNIT/ML 10 ML VIAL SQ SCH (21:16)
[2017-11-11] MEDS: KETOROLAC 30 MG/ML 1 ML VIAL IVP PRN (21:27)
[2017-11-12] MEDS: HYDROcodone/APAP 5-325MG 1 EACH TAB PO PRN ×5 (00:33→22:47)
[2017-11-12 06:48] LABS: Glucose,Whole Blood 86 mg/dL (75-99)
[2017-11-12 07:09] LABS: Basophils % (A) 0 %; Eosinophils # (A) 0.5 k/uL (0-0.7); Eosinophils % (A) 5 %; HCT 29.1 % (34.0-46.0); HGB 9.2 gm/dL (11.4-16.0); Lymphocytes # (A) 2.7 k/uL (1.0-4.8); Lymphocytes % (A) 31 %; MCH 27.3 pg (25.0-35.0); MCHC 31.5 g/dL (31.0-37.0); MCV 86.5 fL (80.0-100.0); Mean Platelet Volume 6.4; Monocytes # (A) 0.4 k/uL (0-1.0); Monocytes % (A) 5 %; Neutrophils # (A) 4.9 k/uL (1.3-7.7); Neutrophils % (A) 56 %; Platelet Count 475 k/uL (150-450); RBC 3.37 m/uL (3.80-5.40); RDW 15.9 % (11.5-15.5); WBC 8.7 k/uL (3.8-10.6)
[2017-11-12 07:18] LABS: ALT 24 U/L (9-52); AST 12 U/L (14-36); Albumin 3.3 g/dL (3.5-5.0); Alkaline Phosphatase 64 U/L (38-126); Anion Gap 6 mmol/L; Blood Urea Nitrogen 19 mg/dL (7-17); Calcium 9.3 mg/dL (8.4-10.2); Carbon Dioxide 26 mmol/L (22-30); Chloride 109 mmol/L (98-107); Glucose 82 mg/dL (74-99); Sodium 141 mmol/L (137-145); Total Bilirubin <0.1 mg/dL (0.2-1.3); Total Protein 6.1 g/dL (6.3-8.2)
[2017-11-12] MEDS: LISINOPRIL 20 MG TAB PO SCH (09:23)
[2017-11-12] MEDS: FERROUS SULFATE 325 MG TAB PO SCH ×2 (09:23→21:17)
[2017-11-12] MEDS: OXYBUTYNIN CHLORIDE 5 MG TAB PO SCH ×3 (09:23→21:18)
[2017-11-12] MEDS: DOCUSATE 100 MG CAP PO SCH ×2 (09:23→21:18)
[2017-11-12] MEDS: cefTRIAXone IN SWFI 1,000 MG/10 ML SYRINGE IVP SCH ×2 (09:23→21:17)
[2017-11-12] MEDS: CHOLECALCIFEROL 1,000 UNIT TAB PO SCH (09:23)
[2017-11-12] MEDS: HEPARIN SODIUM,PORCINE 5,000 UNIT/ML 1 ML VIAL SQ SCH ×2 (09:24→21:17)
[2017-11-12] MEDS: HYDROCHLOROTHIAZIDE 12.5 MG CAP PO SCH (09:24)
[2017-11-12] MEDS: metFORMIN 500 MG TAB PO SCH ×2 (09:26→17:53)
[2017-11-12] MEDS: PANTOPRAZOLE 40 MG TABLET PO SCH (09:26)
[2017-11-12] MEDS: INSULIN ASPART 100 UNIT/ML 1 ML 10 ML VIAL SQ SCH ×4 (09:26→21:16)
--- NOTE | 2017-11-12 09:55 | P.PN ---
<Jeanie Esteban P - Last Filed: 11/12/17 09:51> Subjective Progress Note Date: 11/12/17 Moni Nance is a 62-year-old female who presented to [facility] emergency department with a chief complaint of left flank pain and abdominal pain for the last several weeks. Patient states she was admitted to the hospital a month ago for urosepsis and nephrolithiasis. Patient was treated with a midline as well as stent in the left ureter. Patient states she has not felt well since discharge from the hospital. Patient states today she noticed her urine looks turbid and had increasing pain so came to the emergency department. . Patient also was complaining of fever and chills over the past few days intermittently. Patient denies any blood in the urine. On 11/09/2017 patient is feeling better, no new episodes of fever, white blood count is down from 15.8 to 8.3 hemoglobin is down from 10.5-8.8 urine culture is positive for gram-negative bacilli still awaiting identity and sensitivity, continue with current antibiotic at this time. 11/10/2017 patient still complaining of left flank pain. White count remains normal. She's been followed by urology. The recommending stone and stent removal on November 14 outpatient. Patient hemoglobin has dropped to 8.6. A1c 7.9. Patient is still requiring the Toradol for left flank pain. Fluids will be hep-locked. She is eating and drinking. She denies any chest pain or shortness of breath. She has having occasional nausea. 11/11/2017 patient suffering with left flank pain. She'll be having the total stone and stent removed November 14 outpatient. Patient is concerned about going home to early. She's currently on IV Rocephin 11/12/2017 patient still complaining from left flank pain. Patient is still anticipating total stone and stent removal on November 14 outpatient. Blood culture positive for E. coli in the urine. Patient remains on IV Rocephin. She denies chest pain or shortness breath at this time. Patient does state nausea has improved Objective - Vital Signs Vital signs: Vital Signs Temp 97.7 F 11/11/17 20:46 Pulse 62 11/11/17 20:46 Resp 16 11/11/17 20:46 BP 154/75 11/11/17 20:46 Pulse Ox 95 07/31/18 20:46 Intake & Output 11/11/17 11/12/17 11/12/17 18:59 06:59 18:59 Intake Total 600 600 Output Total 250 Balance 350 600 Weight 83.915 kg Intake: Oral 600 600 Output: Urine 250 Other: Voiding Method Toilet # Voids 1 2 - Exam Head normocephalic Neck supple Lungs clear to auscultation bilaterally no wheezing or crackles Heart regular rate and rhythm S1-S2, no rub or gallop Abdomen is soft nondistended positive bowel sounds no hepatosplenomegaly. Left flank pain Extremities no edema Neuro alert and orientated to 3 - Labs CBC & Chem 7: 11/12/17 06:50 11/12/17 06:50 Labs: Abnormal Lab Results - Last 24 Hours (Table) 11/11/17 11/11/17 11/11/17 Range/Units 11:20 16:59 20:50 RBC (3.80-5.40) m/uL Hgb (11.4-16.0) gm/dL Hct (34.0-46.0) % RDW (11.5-15.5) % Plt Count (150-450) k/uL Chloride (98-107) mmol/L BUN (7-17) mg/dL POC Glucose (mg/dL) 110 H 207 H 151 H (75-99) mg/dL Total Bilirubin (0.2-1.3) mg/dL AST (14-36) U/L Total Protein (6.3-8.2) g/dL Albumin (3.5-5.0) g/dL 11/12/17 11/12/17 Range/Units 06:50 06:50 RBC 3.37 L (3.80-5.40) m/uL Hgb 9.2 L (11.4-16.0) gm/dL Hct 29.1 L (34.0-46.0) % RDW 15.9 H (11.5-15.5) % Plt Count 475 H (150-450) k/uL Chloride 109 H (98-107) mmol/L BUN 19 H (7-17) mg/dL POC Glucose (mg/dL) (75-99) mg/dL Total Bilirubin <0.1 L (0.2-1.3) mg/dL AST 12 L (14-36) U/L Total Protein 6.1 L (6.3-8.2) g/dL Albumin 3.3 L (3.5-5.0) g/dL Microbiology - Last 24 Hours (Table) 11/07/17 17:50 Blood Culture - Preliminary Blood No Growth after 96 hours Assessment and Plan Assessment: #1 urinary tract infection, improving clinically, white blood count normal no new episodes of fever, urine culture growing E. coli sensitive to Rocephin. At this came we'll continue with the IV Rocephin. Anticipate switching her over to Ceftin for 7 more days at discharge #2 sepsis with septic shock. evidenced by leukocytosis, fever and chills, tachycardia and hypotension on presentation blood pressure was 99/52, at this time continue was current IV antibiotic. Improved with IV fluids. Discontinue IV fluids #3 underlying history of left nephrolithiasis patient was seen by urology during the last admission and as outpatient, she had the stent placement in the left ureter, she denies having passed any kidney stones, she was scheduled for surgery with stone and stent removal on Friday outpatient #4 underlying history of diabetes mellitus, will resume Lantus 26 units at bedtime and continue with insulin NovoLog sliding scale #5 iron deficiency anemia: Hemoglobin 8.5. No active signs of bleeding. Start ferrous sulfate 325 mg twice a day. Hemoglobin 9.2 DVT prophylaxis subcu heparin and GI prophylaxis Protonix Anticipating discharge on in preparation for her urological procedure on Friday outpatient I performed an examination of the patient and discussed their management with the Nurse Practitioner. I have reviewed the Nurse Practitioner's notes and agree with the documented findings and plan of care Dr. Gonzalez will be on vacation starting the evening of November 11. Dr. TRACEY Bruce will be covering <Viki Mejia A - Last Filed: 11/12/17 14:48> Objective - Vital Signs Vital signs: Vital Signs Temp 98.3 F 11/12/17 13:02 Pulse 60 11/12/17 13:02 Resp 16 11/12/17 13:02 BP 147/78 11/12/17 13:02 Pulse Ox 97 11/12/17 13:02 Intake & Output 07/31/18 08/01/18 08/01/18 18:59 06:59 18:59 Intake Total 600 600 Output Total 250 Balance 350 600 Weight 83.915 kg Intake: Oral 600 600 Output: Urine 250 Other: Voiding Method Toilet Toilet # Voids 1 2 - Labs CBC & Chem 7: 11/12/17 06:50 11/12/17 06:50 Labs: Abnormal Lab Results - Last 24 Hours (Table) 11/11/17 11/11/17 11/12/17 Range/Units 16:59 20:50 06:50 RBC 3.37 L (3.80-5.40) m/uL Hgb 9.2 L (11.4-16.0) gm/dL Hct 29.1 L (34.0-46.0) % RDW 15.9 H (11.5-15.5) % Plt Count 475 H (150-450) k/uL Chloride (98-107) mmol/L BUN (7-17) mg/dL POC Glucose (mg/dL) 207 H 151 H (75-99) mg/dL Total Bilirubin (0.2-1.3) mg/dL AST (14-36) U/L Total Protein (6.3-8.2) g/dL Albumin (3.5-5.0) g/dL 11/12/17 11/12/17 Range/Units 06:50 11:55 RBC (3.80-5.40) m/uL Hgb (11.4-16.0) gm/dL Hct (34.0-46.0) % RDW (11.5-15.5) % Plt Count (150-450) k/uL Chloride 109 H (98-107) mmol/L BUN 19 H (7-17) mg/dL POC Glucose (mg/dL) 135 H (75-99) mg/dL Total Bilirubin <0.1 L (0.2-1.3) mg/dL AST 12 L (14-36) U/L Total Protein 6.1 L (6.3-8.2) g/dL Albumin 3.3 L (3.5-5.0) g/dL Microbiology - Last 24 Hours (Table) 11/07/17 17:50 Blood Culture - Preliminary Blood No Growth after 96 hours Assessment and Plan Assessment: Patient seen and examined. Patient states she is feeling okay. She is having some lower abdominal pain. She is asking for Toradol. Plan is for discharge tomorrow and follow-up for outpatient intervention on Friday which has been scheduled. ~Viki Mejia DO
[2017-11-12 12:07] LABS: Glucose,Whole Blood 135 mg/dL (75-99)
[2017-11-12] MEDS: KETOROLAC 30 MG/ML 1 ML VIAL IVP PRN (14:48)
[2017-11-12 17:19] LABS: Glucose,Whole Blood 159 mg/dL (75-99)
[2017-11-12 20:56] LABS: Glucose,Whole Blood 265 mg/dL (75-99)
[2017-11-12] MEDS: INSULIN DETEMIR 100 UNIT/ML 10 ML VIAL SQ SCH (21:16)
[2017-11-12] MEDS: ATENOLOL 25 MG TAB PO SCH (21:18)
[2017-11-12 22:39] VITALS: TEMP 98.2
[2017-11-13 06:33] LABS: Anisocytosis Slight; Basophils % (A) 0 %; Eosinophils # (A) 0.4 k/uL (0-0.7); Eosinophils % (A) 6 %; HCT 27.7 % (34.0-46.0); Lymphocytes # (A) 2.8 k/uL (1.0-4.8); Lymphocytes % (A) 38 %; MCH 27.8 pg (25.0-35.0); MCHC 32.4 g/dL (31.0-37.0); MCV 85.9 fL (80.0-100.0); Mean Platelet Volume 6.7; Monocytes # (A) 0.4 k/uL (0-1.0); Monocytes % (A) 6 %; Neutrophils # (A) 3.6 k/uL (1.3-7.7); Neutrophils % (A) 48 %; Platelet Count 529 k/uL (150-450); RBC 3.23 m/uL (3.80-5.40); RDW 16.2 % (11.5-15.5); WBC 7.5 k/uL (3.8-10.6)
[2017-11-13 06:47] LABS: ALT 26 U/L (9-52); AST 12 U/L (14-36); Albumin 3.1 g/dL (3.5-5.0); Alkaline Phosphatase 55 U/L (38-126); Anion Gap 5 mmol/L; Blood Urea Nitrogen 20 mg/dL (7-17); Calcium 9.1 mg/dL (8.4-10.2); Carbon Dioxide 27 mmol/L (22-30); Chloride 111 mmol/L (98-107); Glucose 65 mg/dL (74-99); Potassium 4.2 mmol/L (3.5-5.1); Sodium 143 mmol/L (137-145); Total Bilirubin <0.1 mg/dL (0.2-1.3); Total Protein 5.6 g/dL (6.3-8.2)
[2017-11-13 06:50] LABS: Glucose,Whole Blood 70 mg/dL (75-99)
[2017-11-13] MEDS: PANTOPRAZOLE 40 MG TABLET PO SCH (06:50)
[2017-11-13] MEDS: HYDROcodone/APAP 5-325MG 1 EACH TAB PO PRN ×2 (06:57→11:34)
[2017-11-13] MEDS: metFORMIN 500 MG TAB PO SCH (07:00)
[2017-11-13] MEDS: INSULIN ASPART 100 UNIT/ML 1 ML 10 ML VIAL SQ SCH (07:06)
[2017-11-13 07:53] VITALS: BP 137/66; PULSE 71; RESP 18
[2017-11-13] MEDS: HYDROCHLOROTHIAZIDE 12.5 MG CAP PO SCH (08:58)
[2017-11-13] MEDS: OXYBUTYNIN CHLORIDE 5 MG TAB PO SCH (08:58)
[2017-11-13] MEDS: cefTRIAXone IN SWFI 1,000 MG/10 ML SYRINGE IVP SCH ×2 (08:58→12:16)
[2017-11-13] MEDS: DOCUSATE 100 MG CAP PO SCH (08:58)
[2017-11-13] MEDS: FERROUS SULFATE 325 MG TAB PO SCH (08:58)
[2017-11-13] MEDS: CHOLECALCIFEROL 1,000 UNIT TAB PO SCH (08:58)
[2017-11-13] MEDS: HEPARIN SODIUM,PORCINE 5,000 UNIT/ML 1 ML VIAL SQ SCH (10:08)
[2017-11-13] MEDS: LISINOPRIL 20 MG TAB PO SCH (10:08)
--- NOTE | 2017-11-13 11:16 | P.DS ---
Providers Date of admission: 11/07/17 20:56 Expected date of discharge: 11/13/17 Attending physician: Charles Gonzalez Consults: 11/08/17 12:04 Consult Physician Routine Consulting Provider: Spencer Walker Consult Reason/Comments: hydronephrosis Do you want consulting provider notified?: Yes [facility] Course: Discharge diagnosis #1 urinary tract infection, improving clinically, white blood count normal no new episodes of fever, urine culture growing E. coli sensitive to Rocephin. At this came we'll continue with the IV Rocephin. Patient will continue Ceftin 5 mg twice a day for 10 days #2 sepsis with septic shock. evidenced by leukocytosis, fever and chills, tachycardia and hypotension on presentation blood pressure was 99/52, at this time continue was current IV antibiotic. Improved with IV fluids. Discontinue IV fluids #3 underlying history of left nephrolithiasis patient was seen by urology during the last admission and as outpatient, she had the stent placement in the left ureter, she denies having passed any kidney stones, she was scheduled for surgery with stone and stent removal on Friday outpatient #4 underlying history of diabetes mellitus, will resume Lantus 26 units at bedtime and continue with insulin NovoLog sliding scale #5 iron deficiency anemia: Hemoglobin 8.5. No active signs of bleeding. Start ferrous sulfate 325 mg twice a day #6 diabetes mellitus type 2. A1c 7.9 Hospital course Moni Nance is a 62-year-old female who presented to [facility] emergency department with a chief complaint of left flank pain and abdominal pain for the last several weeks. Patient states she was admitted to the hospital a month ago for urosepsis and nephrolithiasis. Patient was treated with a midline as well as stent in the left ureter. Patient states she has not felt well since discharge from the hospital. Patient states today she noticed her urine looks turbid and had increasing pain so came to the emergency department. . Patient also was complaining of fever and chills over the past few days intermittently. Patient denies any blood in the urine. On 11/09/2017 patient is feeling better, no new episodes of fever, white blood count is down from 15.8 to 8.3 hemoglobin is down from 10.5-8.8 urine culture is positive for gram-negative bacilli still awaiting identity and sensitivity, continue with current antibiotic at this time. 11/10/2017 patient still complaining of left flank pain. White count remains normal. She's been followed by urology. The recommending stone and stent removal on November 14 outpatient. Patient hemoglobin has dropped to 8.6. A1c 7.9. Patient is still requiring the Toradol for left flank pain. Fluids will be hep-locked. She is eating and drinking. She denies any chest pain or shortness of breath. She has having occasional nausea. 11/11/2017 patient suffering with left flank pain. She'll be having the total stone and stent removed November 14 outpatient. Patient is concerned about going home to early. She's currently on IV Rocephin 11/12/2017 patient still complaining from left flank pain. Patient is still anticipating total stone and stent removal on November 14 outpatient. Blood culture positive for E. coli in the urine. Patient remains on IV Rocephin. She denies chest pain or shortness breath at this time. Patient does state nausea has improved Patient is medically stable for discharge. Her sepsis has resolved. She's been afebrile. White count normalized. She'll be discharged home on Ceftin. She'll follow-up with urology outpatient tomorrow for stone and stent removal. Patient given a 3 day prescription of [place] for pain control. She is asking for her Lantus to be switched to Levemir and Humalog to be switched to NovoLog. She feels she gets better control of her blood sugars. A new prescription for Levemir and Humalog per sliding scale given. I performed an examination of the patient and discussed their management with the physician Software Engineering Associate Manager. I have reviewed the Physician Software Engineering Associate Manager's notes and agree with the documented findings and plan of care Patient Condition at Discharge: Stable Plan - Discharge Summary Discharge Rx Participant: Yes New Discharge Prescriptions: New Cefuroxime Axetil [Ceftin] 500 mg PO BID #20 tab HYDROcodone/APAP 5-325MG [[place] 5-325] 1 each PO Q4HR PRN #18 tab PRN Reason: Moderate Pain Insulin Aspart [NovoLOG Flexpen] See Protocol SQ AC-TID #1 pen Insulin Detemir [Levemir Flextouch] 26 units SQ HS #1 pen Continue Gemfibrozil [Lopid] 600 mg PO DAILY [place]-3 Fatty Acids/Fish Oil [Fish Oil 1,000 mg Softgel] 1 cap PO DAILY metFORMIN HCL [Glucophage] 1,000 mg PO BID Cholecalciferol (Vitamin D3) [Vitamin D3] 2,000 unit PO DAILY Ferrous Sulfate [Iron (65 MG Elemental)] 325 mg PO BID #60 tab Oxybutynin Chloride [Ditropan] 5 mg PO TID #21 tab Hydrochlorothiazide [Hydrodiuril] 12.5 mg PO DAILY #30 cap Lisinopril [Zestril] 20 mg PO DAILY #30 tab Prochlorperazine [Compazine] 10 mg PO TID PRN PRN Reason: Nausea Atenolol [Tenormin] 25 mg PO HS Discontinued EPINEPHrine (Auto Inject) [Epipen] 0.3 mg IM ONCE PRN #2 syringe PRN Reason: Difficulty breathing INSULIN LISPRO (humaLOG) [humaLOG] See Protocol SQ AC-TID HYDROcodone/APAP 10-325MG [[place] 10-325] 0.5 tab PO Q4HR PRN PRN Reason: Pain Insulin Glargine [Lantus] 26 unit SQ HS Discharge Medication List Gemfibrozil [Lopid] 600 mg PO DAILY 12/10/16 [History] [place]-3 Fatty Acids/Fish Oil [Fish Oil 1,000 mg Softgel] 1 cap PO DAILY [History] metFORMIN HCL [Glucophage] 1,000 mg PO BID 12/10/16 [History] Cholecalciferol (Vitamin D3) [Vitamin D3] 2,000 unit PO DAILY 09/28/17 [History] Ferrous Sulfate [Iron (65 MG Elemental)] 325 mg PO BID #60 tab 10/03/17 [Rx] Oxybutynin Chloride [Ditropan] 5 mg PO TID #21 tab 10/03/17 [Rx] Hydrochlorothiazide [Hydrodiuril] 12.5 mg PO DAILY #30 cap 10/15/17 [Rx] Lisinopril [Zestril] 20 mg PO DAILY #30 tab 10/15/17 [Rx] Atenolol [Tenormin] 25 mg PO HS 11/07/17 [History] Prochlorperazine [Compazine] 10 mg PO TID PRN 11/07/17 [History] Cefuroxime Axetil [Ceftin] 500 mg PO BID #20 tab 11/13/17 [Rx] HYDROcodone/APAP 5-325MG [[place] 5-325] 1 each PO Q4HR PRN #18 tab 11/13/17 [Rx] Insulin Aspart [NovoLOG Flexpen] See Protocol SQ AC-TID #1 pen 11/13/17 [Rx] Insulin Detemir [Levemir Flextouch] 26 units SQ HS #1 pen 11/13/17 [Rx] Follow up Appointment(s)/Referral(s): Erica Lang MD [Primary Care Provider] - 1 Week Spencer Walker MD [STAFF PHYSICIAN] - 11/14/17 Activity/Diet/Wound Care/Special Instructions: Diet: cardiac, diabetic Activity: as tolerated Discharge Disposition: HOME SELF-CARE
--- NOTE | 2017-11-13 12:12 | P.PN ---
Progress Note - Text Progress Note Date: 11/13/17 The patient remains afebrile and her only complaint is LLQ discomfort from the JJ catheter. I reviewed the plans for left ureteroscopy and lithotripsy for treatment of the distal left ureteral calculus which will be done tomorrow afternoon and she has no further questions. She will be discharged today.
== END 2017-11-13 12:26 | disposition home or self-care (01) | DRG 871 ==
LOC: EC 15:23 → 6PED 20:56
PROVIDERS: ADMIT Internal Medicine; ATTEND Internal Medicine
DX: A41.51 Sepsis due to Escherichia coli [E. coli] (principal); R65.21 Severe sepsis with septic shock; N39.0 Urinary tract infection, site not specified; N13.2 Hydronephrosis with renal and ureteral calculous obstruction; D50.9 Iron deficiency anemia, unspecified; E11.9 Type 2 diabetes mellitus without complications; M06.9 Rheumatoid arthritis, unspecified; Z79.4 Long term (current) use of insulin; Z87.442 Personal history of urinary calculi; Z87.891 Personal history of nicotine dependence; Z79.899 Other long term (current) drug therapy; Z88.2 Allergy status to sulfonamides; Z91.030 Bee allergy status
CPT/HCPCS: 36415; 74178; 80053; 81001; 82150; 82728; 83036; 83540; 83550; 83605; 83690; 85025; 87040; 87077; 87086; 87186; 96361; 96374; 96375; 99285